=== PATIENT | female | born 1940 | race Caucasian/White ===

== ENCOUNTER → 2020-01-08 14:33 | Outpatient (BNVA) | payer MEDICARE, OTHER, SELFPAY | PROVIDERS: Family Provider Nurse Practitioner Family; PCP Nurse Practitioner Family; Visit Provider Dermatology | DX: Z12.89 Encounter for screening for malignant neoplasm of other sites (principal) | CPT/HCPCS: 71046 ==

== ENCOUNTER 2020-03-10 14:33 | Outpatient (CLI) | payer MEDICARE, OTHER, SELFPAY ==
--- NOTE | 2020-03-10 14:46 | MM_ITS ---
WS: [id number] SCREENING DIGITAL MAMMOGRAM WITH CAD HISTORY: SCREENING COMPARISON: None available. Bilateral CC and MLO views submitted. Computer aided detection analyzed. Breast composition: There are scattered areas of fibroglandular density. Seen on the LEFT MLO project ion is a 6 mm rounded hyperdense nodule posteriorly which may be a lymph node. There is an additional small cluster of calcifications at the 3:00 axis of the LEFT breast at a middle depth. These are sma ll round calcifications and probably benign. Questionable soft tissue mass associated with the calcif ications. Additional benign calcifications. LEFT breast: Spot compression views ( MLO). True ML and exaggerated lateral CC. Ultrasound to follow if abnormality persists. LEFT breast: Magnification views 3:00. MM/[place] [id number] IMPRESSION: BI-RADS: 0-Incomplete: Need additional imaging evaluation FOLLOW UP: Need Additional Imaging
== END 2020-03-10 14:34 | disposition home or self-care (01) ==
LOC: RADSHAW 14:42
PROVIDERS: PCP Nurse Practitioner Family; Visit Provider Nurse Practitioner Family
DX: Z12.31 Encounter for screening mammogram for malignant neoplasm of breast (principal); R92.1 Mammographic calcification found on diagnostic imaging of breast
CPT/HCPCS: 77067

== ENCOUNTER 2020-03-24 10:11 | Outpatient (CLI) | payer MEDICARE, OTHER, SELFPAY ==
--- NOTE | 2020-03-24 10:20 | US_ITS ---
WS: [id number] ADDITIONAL VIEWS LEFT MAMMOGRAM LEFT BREAST ULTRASOUND HISTORY: ABNORMAL MAMMOGRAM LT BREAST COMPARISON: 03/10/2020 LEFT MAMMOGRAM: Spot compression views and true ML. Magnification views LEFT breast. Cluster of calcifications along the 2:00 axis of the LEFT breast at a mid to posterior depth. These a re minimally pleomorphic calcifications. No prior studies for comparison to evaluate for stability. There is an additional well-rounded hyperdense nodule at the 2:00 axis posteriorly which needs furthe r evaluation. LEFT BREAST ULTRASOUND 2-D and color Doppler imaging submitted. Hypoechoic nodule with central increased echogenicity at 2:00, 6 cm from the nipple measures 6 x 5 x 5 mm. Corresponds to the mammographic abnormality and benign in appearance. Stereotactic biopsy LEFT breast recommended of calcifications at 2:00. US/US breast LT limited* [id number] IMPRESSION: BI-RADS: 4B-Suspicious: Intermediate FOLLOW UP: Biopsy Recommended
== END 2020-03-24 10:12 | disposition home or self-care (01) ==
LOC: RADSHAW 10:18
PROVIDERS: PCP Nurse Practitioner Family; Visit Provider Nurse Practitioner Family
DX: R92.8 Other abnormal and inconclusive findings on diagnostic imaging of breast (principal); R92.1 Mammographic calcification found on diagnostic imaging of breast; M35.3 Polymyalgia rheumatica; E03.9 Hypothyroidism, unspecified; E11.9 Type 2 diabetes mellitus without complications
CPT/HCPCS: 76642; 77065; 80053; 82607; 82746; 83036; 83550; 84443; 85025

== ENCOUNTER 2020-04-28 12:31 | Outpatient (CLI) | payer MEDICARE, OTHER, SELFPAY ==
--- NOTE | 2020-04-28 12:43 | MM_ITS ---
WS: [id number] STEREOTACTIC LEFT BREAST BIOPSY WITH VACUUM ASSISTANCE. History: Heterogeneous left breast calcifications. Biopsy recommended for suspicious calcifications. Procedure, risks, and complications were discussed the patient who agreed to proceed. Prior imaging w as reviewed. Cluster of calcifications within the left breast are localized. Stereotactic imaging was performed. P atient was prepped and draped in usual sterile fashion. After 1% lidocaine, calcifications were targe ulysses stereotactically in the left breast. Small incision was made. Needle advanced into the cluster of calcifications left breast with imaging demonstrating appropriate position relative to the calcifica tions. Multiple vacuum-assisted core biopsies were obtained. Postprocedure imaging demonstrates calci fications within the biopsy specimen. The biopsy cavity was lavaged. Titanium clip was placed at the biopsy site. Postprocedure imaging dem onstrates clip in good position. No immediate complications. MM/[place] [id number] IMPRESSION: 1. Uncomplicated vacuum-assisted stereotactic biopsy of calcifications in the left breast. 2. 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 No yulisa gnancy identified. Recommend 6 month diagnostic mammographic follow-up postbiopsy
--- NOTE | 2020-04-28 12:43 | MM_ITS ---
WS: [id number] STEREOTACTIC LEFT BREAST BIOPSY WITH VACUUM ASSISTANCE. History: Heterogeneous left breast calcifications. Biopsy recommended for suspicious calcifications. Procedure, risks, and complications were discussed the patient who agreed to proceed. Prior imaging w as reviewed. Cluster of calcifications within the left breast are localized. Stereotactic imaging was performed. P atient was prepped and draped in usual sterile fashion. After 1% lidocaine, calcifications were targe ulysses stereotactically in the left breast. Small incision was made. Needle advanced into the cluster of calcifications left breast with imaging demonstrating appropriate position relative to the calcifica tions. Multiple vacuum-assisted core biopsies were obtained. Postprocedure imaging demonstrates calci fications within the biopsy specimen. The biopsy cavity was lavaged. Titanium clip was placed at the biopsy site. Postprocedure imaging dem onstrates clip in good position. No immediate complications. MM/MM biopsy LT vac assist [id number] IMPRESSION: 1. Uncomplicated vacuum-assisted stereotactic biopsy of calcifications in the left breast. 2. 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 No yulisa gnancy identified. Recommend 6 month diagnostic mammographic follow-up postbiopsy
--- NOTE | 2020-04-28 12:43 | MM_ITS ---
WS: [id number] STEREOTACTIC LEFT BREAST BIOPSY WITH VACUUM ASSISTANCE. History: Heterogeneous left breast calcifications. Biopsy recommended for suspicious calcifications. Procedure, risks, and complications were discussed the patient who agreed to proceed. Prior imaging w as reviewed. Cluster of calcifications within the left breast are localized. Stereotactic imaging was performed. P atient was prepped and draped in usual sterile fashion. After 1% lidocaine, calcifications were targe ulysses stereotactically in the left breast. Small incision was made. Needle advanced into the cluster of calcifications left breast with imaging demonstrating appropriate position relative to the calcifica tions. Multiple vacuum-assisted core biopsies were obtained. Postprocedure imaging demonstrates calci fications within the biopsy specimen. The biopsy cavity was lavaged. Titanium clip was placed at the biopsy site. Postprocedure imaging dem onstrates clip in good position. No immediate complications. MM/MM surgical specimen LT IMPRESSION: 1. Uncomplicated vacuum-assisted stereotactic biopsy of calcifications in the left breast. 2. 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 No yulisa gnancy identified. Recommend 6 month diagnostic mammographic follow-up postbiopsy
[2020-04-28 14:06] LABS: INR 0.89 (0.8-1.2)
== END 2020-04-28 12:32 | disposition home or self-care (01) ==
LOC: RADSHAW 12:35
PROVIDERS: PCP Nurse Practitioner Family; Visit Provider Nurse Practitioner Family
DX: R92.8 Other abnormal and inconclusive findings on diagnostic imaging of breast (principal); R92.1 Mammographic calcification found on diagnostic imaging of breast; N60.22 Fibroadenosis of left breast; M35.3 Polymyalgia rheumatica
CPT/HCPCS: 19081; 77065; 80053; 81001; 85610; 88305

== ENCOUNTER → 2020-05-12 14:44 | Outpatient (BNVA) | payer MEDICARE, OTHER, SELFPAY | PROVIDERS: PCP Nurse Practitioner Family; Referring Provider Internal Medicine; Visit Provider Podiatrist Foot & Ankle Surgery | DX: M21.961 Unspecified acquired deformity of right lower leg (principal); M21.962 Unspecified acquired deformity of left lower leg; M19.072 Primary osteoarthritis, left ankle and foot; M19.071 Primary osteoarthritis, right ankle and foot; M21.42 Flat foot [pes planus] (acquired), left foot; M21.41 Flat foot [pes planus] (acquired), right foot; M77.32 Calcaneal spur, left foot; M77.31 Calcaneal spur, right foot; M72.2 Plantar fascial fibromatosis | CPT/HCPCS: 73630 ==

== ENCOUNTER 2020-05-23 23:20 | Observation (INO) | payer MEDICARE, OTHER, SELFPAY ==
[2020-05-23 23:21] VITALS: BP 198/108; PULSE 74; RESP 16; TEMP 36.7; O2SAT 95
--- NOTE | 2020-05-23 23:23 | CTR_ITS ---
PROCEDURE INFORMATION: Exam: CT Head Without Contrast Exam date and time: 05/23/2020 11:27 PM Age: 79 years old Clinical indication: Altered mental status/memory loss and speech disturbance; Confusion or disorientation; Patient HX: Dysphasia, confusion; Additional info: CVA TECHNIQUE: Imaging protocol: Computed tomography of the head without contrast. Radiation optimization: All CT scans at this facility use at least one of these dose optimization techniques: automated exposure control; mA and/or kV adjustment per patient size (includes targeted exams where dose is matched to clinical indication); or iterative reconstruction. Other technique: STROKE PROTOCOL was implemented. COMPARISON: No relevant prior studies available. RADIATION DOSE METRICS: Total DLP (mGy-cm): 862.44 FINDINGS: Brain: There is moderate diffuse cerebral atrophy. Patchy areas of hypoattenuation are seen in the deep white matter of the cerebral hemispheres bilaterally compatible with deep white matter microvascular disease. Hypoattenuation seen within the external capsules compatible with chronic lacunar infarctions. Ventricles: No ventriculomegaly. Bones/joints: Unremarkable. No acute fracture. Paranasal sinuses: Minimal mucosal thickening and fluid is seen within the ethmoidal sinuses bilaterally. Mastoid air cells: Visualized mastoid air cells are well aerated. Soft tissues: Unremarkable. CT/CT head wo con* [id number] IMPRESSION: There are no acute intracranial findings. ASSESSMENT: ASPECTS ([place] Stroke Program Early CT Score) is 10. Radiation Dose CTDIVOL = (mGy): DLP = 862.44 (mGy-cm)
--- NOTE | 2020-05-23 23:23 | XRR_ITS ---
PROCEDURE INFORMATION: Exam: XR Chest, 1 View Exam date and time: 05/24/2020 12:01 AM Age: 79 years old Clinical indication: Other: Stroke symptoms; Patient HX: Poss CVA; Confusion, difficulty speaking. TECHNIQUE: Imaging protocol: XR of the chest Views: 1 view. COMPARISON: CR XR chest 2V* [id number] 01/08/2020 2:40 PM FINDINGS: Lungs: Mild platelike atelectasis right infrahilar region. Elevated hemidiaphragm. No focal consolidation. Pleural space: Unremarkable. No pleural effusion. No pneumothorax. Heart/Mediastinum: Unremarkable. No cardiomegaly. Bones/joints: Unremarkable. XR/XR chest 1V portable [id number] IMPRESSION: Mild platelike atelectasis right infrahilar region. Elevated hemidiaphragm. No focal consolidation.
--- NOTE | 2020-05-23 23:24 | ECG_ITS ---
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 Measurements Intervals [place] Rate: 75 P: 20 SC: 175 QRS: 16 QRSD: 94 T: 69 QT: 390 QTc: 436 Interpretive Statements SINUS RHYTHM NONSPECIFIC ST & T-WAVE ABNORMALITY Compared to ECG 12/24/2015 14:52:21 T-wave abnormality now present Left ventricular hypertrophy no longer present Poor R-wave progression no longer present Electronically Signed On 05-24-2020 19:08:27 CDT by Nick Livingston M.D. [email or web address]
[2020-05-23 23:34] VITALS: BP 212/96; PULSE 74; RESP 16; O2SAT 98
--- NOTE | 2020-05-23 23:42 | ED_ITS ---
HPI - Neuro Symptoms/Deficit General: Chief Complaint: Neuro Symptoms/Deficit Stated Complaint: Stroke Symptoms Time Seen by Provider: 05/23/20 23:23 Source: patient and EMS Mode of arrival: EMS Limitations: no limitations History of Present Illness: HPI Narrative: 71-year-old female states tonight at home 930 she started having some confusion and difficult speaking. She state s that she covered out of turn the water off. EMS states when he first arrived here to she had severe dysarthria was unable to read sentences. He states that is since resolved. She states she feels much improved. She is able to speak here without any difficulty. She does seem to get tongue-tied at times with very mild dysarthria every once in a while but no severe dysarthria. She denies any weakness. Denies any headache. Associated symptoms: Deny chest pain, nausea or vomiting Review of Systems Const: Denies: fever(s), chills, body aches or change in appetite Eyes: Denies: blurry vision or eye discomfort ENMT: Denies: throat pain or dental pain Card: Denies: chest pain Resp: Denies: dyspnea GI: Denies: abdominal pain, nausea, vomiting or diarrhea : Denies: dysuria Musc: Denies: neck pain or back pain Skin/Breast: Denies: rash Neuro: Reports: numbness in extremities, Slurred speech present and difficulty communicating thoughts Psych: Denies: depression Dmitry/Lymph: Denies: easy bruising All/Imm: Denies: urticaria PFSH ED PFSH: Medical History Essential (primary) hypertension Surgical History H/O: hysterectomy Social History Smoking and tobacco status: never smoked Alcohol intake: never service: No History of recent travel: No Current gender identity: Female NIH stroke score NIHSS: Level Of Consciousness - 1a: 0 Level Of Consciousness Questions - 1b: Both Correct Level Of Consciousness Commands - 1c: Both Correct Best Gaze - 2: Normal Visual Green - 3: No Visual Loss Facial Palsy - 4: Normal Motor Arm Right - 5: No Drift Motor Arm Left - 5: No Drift Motor Leg Right - 6: No Drift Motor Leg Left - 6: No Drift Limb Ataxia - 7: Absent Sensory - 8: Normal Best Language - 9: No Aphasia Dysarthia - 10: Mild/Moderate Dysarthia Extinction And Inattention - 11: 0 Score: Total Score: 1 Physical Exam Const: COMMON NORMALS: no acute distress, patient oriented x3 and healthy appearing HENMT: COMMON NORMALS: normocephalic and atraumatic HEAD & SCALP: normocephalic and atraumatic Eye: COMMON NORMALS: Equal, round and reactive pupils present and EOMs intact bilaterally PUPIL: Yes Equal, round and reactive pupils present Neck/C-Spine: COMMON NORMALS: full ROM and supple Chest: COMMONS NORMALS: normal inspection of the chest and normal palpation of entire chest wall Resp: COMMON NORMALS: normal respiratory effort, No retractions, No use of accessory muscles and clear to auscultation bilaterally AUSCULTATION: clear to auscultation bilaterally Cardio: COMMON NORMALS: regular rate, regular rhythm and No murmurs present (Cardio) RATE: regular rate RHYTHM: regular rhythm GI: COMMON NORMALS: Normal to inspection, nondistended, normoactive bowel sounds present, Soft to palpation, non-tender and no masses PALPATION: Yes Soft to palpation Extremity: COMMON NORMALS: normal to inspection and full ROM Neuro: COMMON NORMALS: patient oriented x3, moves all extremities and no focal motor deficits OTHER: Very mild dysarthria at times when reading lines. Majority time she is able to speak without any difficulty at all Psych: COMMON NORMALS: mental status grossly normal, Normal thought process present and cooperative THOUGHT PROCESS: Normal thought process present Skin: COMMON NORMALS: no rashes or lesions noted and no wounds GENERAL SKIN EXAM: no rashes or lesions noted Course Vital Signs: Vital signs: Vital Signs Temperature 98.0 F 05/23/20 23:21 Pulse Rate 68 05/24/20 01:00 Respiratory Rate 16 05/24/20 01:00 Blood Pressure 169/87 05/24/20 01:00 Pulse Oximetry 96 05/24/20 01:00 MDM - Neuro Symptoms/Deficit MDM Narrative: Medical decision making narrative: 2344 patient symptoms are resolving. Got an NIH of possibly 1 for some mild dysarthria. Patient is able to read most the sentences fine without any problems. Patient was able to stand and ambulate to bedside commode. I spoke to Dr. Lund due to her low NIH I do not believe she is a TPA candidate along with her improving symptoms. Will get a CTA though. 0100 patient's urine shows an acute. This could be causing her symptoms. CTA showed no clot formation. She is not a TPA candidate. Patient is stable here. Blood pressure here is improved. I spoke to hospitalist will admit for her cystitis and TIA. Lab Data: Labs: Lab Results 05/24/20 05/24/20 05/24/20 Range/Units 00:11 00:11 00:11 WBC 11.6 H (4.0-10.0) 10^3/ uL RBC 4.34 (4.1-5.3) 10^6/u L Hgb 11.5 (11.5-15.3) g/dL Hct 36.2 L (37.0-47.0) % MCV 83.4 (81-99) fL MCH 26.5 L (28.0-34.0) pg MCHC 31.8 (30.0-36.0) g/dL RDW 14.7 (12.1-15.1) % Plt Count 444 H (130-400) 10^3/c mm MPV 9.0 (7.4-10.4) fL Neut % (Auto) 51.6 % Lymph % (Auto) 32.9 % [place] % (Auto) 12.3 % Eos % (Auto) 1.4 % Baso % (Auto) 0.4 % Neut # (Auto) 6.01 (1.8-7.7) 10^3/u L Lymph # (Auto) 3.8 (0.8-4.8) 10^3/u L [place] # (Auto) 1.4 H (0.2-0.9) 10^3/u L Eos # (Auto) 0.2 (0.0-0.8) 10^3/u L Baso # (Auto) 0.1 (0.0-0.1) 10^3/u L Nucleated RBC % (a uto) 0 % Nucleated RBCs # 0.0 /100WBC PT 12.00 L (12.1-14.9) SECO NDS INR 0.86 (0.8-1.2) Sodium 128 L (136-145) mmol/L Potassium 3.7 (3.5-5.1) mmol/L Chloride 91 L (98-107) mmol/L Carbon Dioxide 26 (22-29) mmol/L Anion Gap 14.7 (5-19) BUN 8 (8-23) mg/dL Creatinine 0.6 (0.5-0.9) mg/dL GFR Calculation Not Reportable Glucose 100 (65-115) mg/dL Calculated Osmolal ity 264 L (285-295) mOsm/k g Calcium 9.0 (8.5-10.5) mg/dL Total Bilirubin 0.3 (0.15-1.2) mg/dL AST 22 (0-32) U/L ALT 15 (0-33) U/L Alkaline Phosphata se 34 L (35-105) IU/L Total Protein 6.8 (6.6-8.7) g/dL Albumin 4.0 (3.5-5.2) g/dL Globulin 2.8 (1.3-4.6) g/dL Urine Color (Yellow) Urine Appearance (CLEAR) Urine pH (5-7) Ur Specific Gravit y (1.005-1.030) Urine Protein (Negative) Urine Glucose (UA) (Normal) Urine Ketones (Negative) Urine Blood (Negative) Urine Nitrate (Negative) Urine Bilirubin (Negative) Urine Urobilinogen (Negative) mg/dL Ur Leukocyte July ase (Negative) Urine RBC (0-2) /hpf Urine WBC (0-5) /hpf Ur Squamous Epith Cells (0-5) /hpf Amorphous Sediment Urine Bacteria (NONE) /hpf 05/24/20 Range/Units 00:11 WBC (4.0-10.0) 10^3/ uL RBC (4.1-5.3) 10^6/u L Hgb (11.5-15.3) g/dL Hct (37.0-47.0) % MCV (81-99) fL MCH (28.0-34.0) pg MCHC (30.0-36.0) g/dL RDW (12.1-15.1) % Plt Count (130-400) 10^3/c mm MPV (7.4-10.4) fL Neut % (Auto) % Lymph % (Auto) % [place] % (Auto) % Eos % (Auto) % Baso % (Auto) % Neut # (Auto) (1.8-7.7) 10^3/u L Lymph # (Auto) (0.8-4.8) 10^3/u L [place] # (Auto) (0.2-0.9) 10^3/u L Eos # (Auto) (0.0-0.8) 10^3/u L Baso # (Auto) (0.0-0.1) 10^3/u L Nucleated RBC % (a uto) % Nucleated RBCs # /100WBC PT (12.1-14.9) SECO NDS INR (0.8-1.2) Sodium (136-145) mmol/L Potassium (3.5-5.1) mmol/L Chloride (98-107) mmol/L Carbon Dioxide (22-29) mmol/L Anion Gap (5-19) BUN (8-23) mg/dL Creatinine (0.5-0.9) mg/dL GFR Calculation Glucose (65-115) mg/dL Calculated Osmolal ity (285-295) mOsm/k g Calcium (8.5-10.5) mg/dL Total Bilirubin (0.15-1.2) mg/dL AST (0-32) U/L ALT (0-33) U/L Alkaline Phosphata se (35-105) IU/L Total Protein (6.6-8.7) g/dL Albumin (3.5-5.2) g/dL Globulin (1.3-4.6) g/dL Urine Color Yellow (Yellow) Urine Appearance Clear (CLEAR) Urine pH 7 (5-7) Ur Specific Gravit y 1.010 (1.005-1.030) Urine Protein Neg (Negative) Urine Glucose (UA) Norm (Normal) Urine Ketones Negative (Negative) Urine Blood Neg (Negative) Urine Nitrate Positive H (Negative) Urine Bilirubin Neg (Negative) Urine Urobilinogen Norm (Negative) mg/dL Ur Leukocyte July ase Trace H (Negative) Urine RBC 0-4 H (0-2) /hpf Urine WBC 15-25 H (0-5) /hpf Ur Squamous Epith Cells 0-4 H (0-5) /hpf Amorphous Sediment Not Reportable Urine Bacteria 4+ H (NONE) /hpf Imaging Data^: CXR: Attestation: I personally reviewed and interpreted this imaging study as follows: My impression: No acute abnormality Other CT: Radiologist's impression: [facility] [address] [place] [address] CT Scan Report Signed Patient: Lorena Boyd Unit #: [id number] : 1940 Age/Sex: 79 / F ADM Date: 05/23/20 Loc: ER Room/Bed: Attending Dr: Ordering Provider/Ordering MD: Valeria Noble MD Date of Service: 05/23/20 Procedure(s): CT angio headneck* [id number] Accession Number(s): [id number] Report Number: [id number] PROCEDURE INFORMATION: Exam: CT Angiography Head With Contrast Exam date and time: 05/23/2020 11:56 PM Age: 79 years old Clinical indication: Speech disturbance; Dysarthria and anarthria; Patient HX: Resolving dysphasia and confusion; Additional info: CVA TECHNIQUE: Imaging protocol: Computed tomography angiography of the head with intravenous contrast. 3D rendering (Not supervised by radiologist): MIP and/or 3D reconstructed images were created by the technologist. Radiation optimization: All CT scans at this facility use at least one of these dose optimization techniques: automated exposure control; mA and/or kV adjustment per patient size (includes targeted exams where dose is matched to clinical indication); or iterative reconstruction. Contrast material: VISI 320; Contrast volume: 95 ml; Contrast route: INTRAVENOUS (IV); COMPARISON: CT head wo con* [id number] 05/23/2020 11:18 PM RADIATION DOSE METRICS: Total DLP (mGy-cm): 2.88 FINDINGS: ANTERIOR CIRCULATION: Right internal carotid artery: Unremarkable. Intracranial segment is patent with no significant stenosis. No aneurysm. Right middle cerebral artery: Unremarkable. No occlusion or significant stenosis. No aneurysm. Right anterior cerebral artery: Unremarkable. No occlusion or significant stenosis. No aneurysm. Left internal carotid artery: Unremarkable. Intracranial segment is patent with no significant stenosis. No aneurysm. Left middle cerebral artery: Unremarkable. No occlusion or significant stenosis. No aneurysm. Left anterior cerebral artery: Unremarkable. No occlusion or significant stenosis. No aneurysm. POSTERIOR CIRCULATION: Right vertebral artery: Unremarkable. No occlusion or significant stenosis. No aneurysm. Left vertebral artery: Unremarkable. No occlusion or significant stenosis. No aneurysm. Basilar artery: Unremarkable. No occlusion or significant stenosis. No aneurysm. Right posterior cerebral artery: Unremarkable. No occlusion or significant stenosis. No aneurysm. Left posterior cerebral artery: Unremarkable. No occlusion or significant stenosis. No aneurysm. Brain: No definite mass, mass effect, or midline shift. Cerebral ventricles: Normal. No ventriculomegaly. Bones/joints: Unremarkable. No acute fracture. Soft tissues: Unremarkable. IMPRESSION: No large vessel stenosis or occlusion. PROCEDURE INFORMATION: Exam: CT Angiography Neck With Contrast Exam date and time: 05/23/2020 11:56 PM Age: 79 years old Clinical indication: Speech disturbance; Dysarthria and anarthria; Patient HX: Resolving dysphasia and confusion; Additional info: CVA TECHNIQUE: Imaging protocol: Computed tomography angiography of the neck with intravenous contrast. 3D rendering (Not supervised by radiologist): MIP and/or 3D reconstructed images were created by the technologist. Radiation optimization: All CT scans at this facility use at least one of these dose optimization techniques: automated exposure control; mA and/or kV adjustment per patient size (includes targeted exams where dose is matched to clinical indication); or iterative reconstruction. Contrast material: VISI 320; Contrast volume: 95 ml; Contrast route: INTRAVENOUS (IV); COMPARISON: CT head wo con* [id number] 05/23/2020 11:18 PM RADIATION DOSE METRICS: Total DLP (mGy-cm): 2031.88 FINDINGS: Right common carotid artery: No stenosis. No dissection or occlusion. Right internal carotid artery: There is approximate 50% stenosis within the right carotid bulb secondary to circumferential calcific plaque formation. Right external carotid artery: No occlusion or stenosis of the origin. Right vertebral artery: No stenosis. No dissection or occlusion. Left common carotid artery: No stenosis. No dissection or occlusion. Left internal carotid artery: There is an approximately 55% stenosis within the left carotid bulb secondary to mix calcific and soft plaque formation. Left external carotid artery: No occlusion or stenosis of the origin. Left vertebral artery: No stenosis. No dissection or occlusion. Bones/joints: No acute fracture. Soft tissues: Normal. No significant soft tissue swelling. CT/CT angio headneck* [id number] IMPRESSION: 1. Moderate 50% stenosis within the right carotid bulb secondary to circumferential plaque formation. 2. Moderate 55% stenosis within the left carotid bulb secondary to mixed calcific and soft plaque formation. Mom REFERENCES: NASCET CRITERIA. The degree of internal carotid artery stenosis is based on NASCET criteria. Normal is no stenosis. Mild is less than 50% stenosis. Moderate is 50-69% stenosis. Severe is 70% to 99% stenosis. Total occlusion is no detectable patent lumen. CT Head: Radiologist's impression: [facility] [address] [facility] [address] CT Scan Report Signed Patient: Lorena Boyd Unit #: [id number] : 1940 278 Age/Sex: 79 / F ADM Date: 05/23/20 Loc: ER Room/Bed: Attending Dr: Ordering Provider/Ordering MD: Valeria Noble MD Date of Service: 05/23/20 Procedure(s): CT head wo con* [id number] Accession Number(s): [id number] Report Number: [id number] PROCEDURE INFORMATION: Exam: CT Head Without Contrast Exam date and time: 05/23/2020 11:27 PM Age: 79 years old Clinical indication: Altered mental status/memory loss and speech disturbance; Confusion or disorientation; Patient HX: Dysphasia, confusion; Additional info: CVA TECHNIQUE: Imaging protocol: Computed tomography of the head without contrast. Radiation optimization: All CT scans at this facility use at least one of these dose optimization techniques: automated exposure control; mA and/or kV adjustment per patient size (includes targeted exams where dose is matched to clinical indication); or iterative reconstruction. Other technique: STROKE PROTOCOL was implemented. COMPARISON: No relevant prior studies available. RADIATION DOSE METRICS: Total DLP (mGy-cm): 862.44 FINDINGS: Brain: There is moderate diffuse cerebral atrophy. Patchy areas of hypoattenuation are seen in the deep white matter of the cerebral hemispheres bilaterally compatible with deep white matter microvascular disease. Hypoattenuation seen within the external capsules compatible with chronic lacunar infarctions. Ventricles: No ventriculomegaly. Bones/joints: Unremarkable. No acute fracture. Paranasal sinuses: Minimal mucosal thickening and fluid is seen within the ethmoidal sinuses bilaterally. Mastoid air cells: Visualized mastoid air cells are well aerated. Soft tissues: Unremarkable. CT/CT head wo con* [id number] IMPRESSION: There are no acute intracranial findings. ASSESSMENT: ASPECTS ([place] Stroke Program Early CT Score) is 10. EKG Data^: EKG 1: Attestation: I personally reviewed and interpreted this EKG as follows: EKG interpretation date: 05/23/20 EKG interpretation time: 23:57 Interpretation: nsr hr [address] or t wave abnormalities qrs 94 qtc 419 Discharge Plan Discharge Prescriptions: No Action trazodone 50 mg tablet 50 mg PO .qhs Qty: 90 RF: 3 metoprolol succinate [Toprol XL] 25 mg tablet extended release 24 hr 25 mg PO DAILY Qty: 90 RF: 3 prednisone 20 mg tablet 15 mg PO DAILY Qty: 90 RF: 3 ezetimibe [Zetia] 10 mg tablet 10 mg PO QDAY Qty: 60 RF: 0 Coding Level of Care Code ED Basket Operator for Chg Fwd Exam Comprehensive
[2020-05-24] VITALS (9 sets, daily range): BP systolic 115–198; BP diastolic 69–90; PULSE 63–78; RESP 16–20; TEMP 36.4–37; O2SAT 93–99
[2020-05-24 00:28] LABS: Basophils # 0.1 10^3/uL (0.0-0.1); Basophils % 0.4 %; Eosinophils # 0.2 10^3/uL (0.0-0.8); Eosinophils % 1.4 %; Hematocrit 36.2 % (37.0-47.0); Hemoglobin 11.5 g/dL (11.5-15.3); Lymphocytes # 3.8 10^3/uL (0.8-4.8); Lymphocytes % 32.9 %; Mean Corpuscular HGB Conc 31.8 g/dL (30.0-36.0); Mean Corpuscular Hemoglobin 26.5 pg (28.0-34.0); Mean Corpuscular Volume 83.4 fL (81-99); Monocytes # 1.4 10^3/uL (0.2-0.9); Monocytes % 12.3 %; Neutrophils # 6.01 10^3/uL (1.8-7.7); Neutrophils % 51.6 %; Nucleated Red Blood Cells % 0 %; Platelet Count 444 10^3/cmm (130-400); Red Blood Count 4.34 10^6/uL (4.1-5.3); Red Cell Distribution Width 14.7 % (12.1-15.1); White Blood Count 11.6 10^3/uL (4.0-10.0)
[2020-05-24] MEDS: iodixanol 320 mg/mL 100mL Btl IV (00:28)
[2020-05-24 00:35] LABS: Urine Appearance Clear (CLEAR); Urine Color Yellow (Yellow); pH Urine 7 (5-7)
[2020-05-24 00:36] LABS: Add Urine Microscopic? YES; Bilirubin Urine Neg (Negative); Blood Urine Neg (Negative); Glucose Urine UA Norm (Normal); Ketones Urine Negative (Negative); Leukocyte Esterase Urine Trace (Negative); Nitrate Urine Positive (Negative); Protein Urine Neg (Negative); Urobilinogen Urine Norm (Negative)
[2020-05-24 00:38] LABS: Add Urine Culture? Yes; Bacteria Urine 4+ /hpf; RBC Urine 0-4 /hpf (0-2); Squamous Epithelial Cell Urine 0-4 /hpf (0-5); WBC Urine 15-25 /hpf (0-5)
[2020-05-24 00:44] LABS: Alanine Aminotransferase 15 U/L (0-33); Alkaline Phosphatase 34 IU/L (35-105); Anion Gap 14.7 (5-19); Aspartate Amino Transferase 22 U/L (0-32); Blood Urea Nitrogen 8 mg/dL (8-23); Carbon Dioxide 26 mmol/L (22-29); Chloride 91 mmol/L (98-107); Globulin 2.8 g/dL (1.3-4.6); Glucose 100 mg/dL (65-115); Osmolality Calculated 264 mOsm/kg (285-295); Potassium 3.7 mmol/L (3.5-5.1); Sodium 128 mmol/L (136-145); Total Bilirubin 0.3 mg/dL (0.15-1.2); Total Protein 6.8 g/dL (6.6-8.7)
[2020-05-24 00:47] LABS: INR 0.86 (0.8-1.2)
[2020-05-24] MEDS: cefTRIAXone 1,000 MG in sodium chloride 0.9% (plus) 50 ML 100 MG IV (00:59)
[2020-05-24] MEDS: labetalol 5 mg/mL SDV 20mL 10 MG IVP (01:00)
--- NOTE | 2020-05-24 01:08 | PM.HP ---
Providers/Chief Complaint Primary Care Provider: Kim Gaytan APN Chief Complaint: Stroke Symptoms History of Present Illness Lorena Boyd is a 79 year old female who carries history of polymyalgia rheumatica, rheumatoid arthritis palindromic pattern, essential hypertension, GERD, chronic hyponatremia secondary to poor p.o. intake and hydrochlorothiazide, came in with chief complaint of aphasia. Patient is stating that around 9 PM she went to bathroom and did not know how to operate water faucet at the sink, then she went to laundry room and felt confused while operating her washing machine, her daughter called around 9:30 PM and noticed that her mother's speech was slurred and she seemed confused (word finding difficulty )over the phone. Her daughter came and checked on her, called 911 because of her confusion aphasia and generalized weakness. Her symptoms resolved by the time she was evaluated in the ER, NIH 1, she was not a TPA candidate, CT head unremarkable, patient is endorsing urinary frequency and urgency, abnormal UA reviewed, hyponatremia noted, patient hemodynamically stable. She was given 1 dose of labetalol 10 mg because of her systolic blood pressure in 212mmhgs. She was given 1 dose of ceftriaxone in the ER. 50% stenosis of carotid arteries bilaterally. Dr. Bruce recently started her on steroid for polymyalgia rheumatica at 50 mg, she has decreased her dose to 10 mg for now. Following up with Dr. Paul for foot pain. Denies previous history of stroke, NE, CHF, TIA. Review of Systems Const: Reports: body aches and fatigue; Denies: fever(s) Eyes: Denies: change in vision ENMT: Denies: throat pain Card: Denies: chest pain, dyspnea on exertion or orthopnea Resp: Reports: dyspnea GI: Denies: abdominal pain, nausea or vomiting : Reports: urinary frequency, urinary urgency and dribbling; Denies: flank pain Musc: Denies: neck pain Skin/Breast: Reports: erythema, lesions (Varicose vein) and striae Neuro: Reports: confusion Psych: Reports: anxiety Endo: Denies: polyuria Dmitry/Lymph: Denies: easy bruising All/Imm: Denies: urticaria Medications/Allergies Home Medications Medication Instructions Recorded Confirmed Last Taken Type ezetimibe 10 mg tablet 10 mg PO QDAY #60 tab 10/02/19 05/12/20 Unknown Rx metoprolol succinate 25 mg 25 mg PO DAILY #90 tab 03/24/20 05/12/20 Unknown Rx tablet,extended release 24 hr prednisone 20 mg tablet 15 mg PO DAILY #90 tab 04/14/20 05/12/20 Unknown Rx trazodone 50 mg tablet 50 mg PO .qhs #90 tab 04/14/20 05/12/20 Unknown Rx Allergies Allergy/AdvReac Type Severity Reaction Status Date / Time amantadine Allergy Unknown Verified 05/12/20 14:54 codeine Allergy Unknown Verified 05/12/20 14:54 indomethacin Allergy Unknown Verified 05/12/20 14:54 metronidazole [From Flagyl] Allergy Unknown Verified 05/12/20 14:54 Kwznjrr-[id number]-Vtp Reductase Allergy Unknown Verified 05/12/20 14:54 Inhibitor Sulfa (Sulfonamide Allergy Unknown Verified 05/12/20 14:54 Antibiotics) PFSH Acute PFSH: Medical History Abnormal mammogram Dyslipidemia Essential (primary) hypertension GERD (gastroesophageal reflux disease) PMR (polymyalgia rheumatica) Rheumatoid arthritis Toe malalignment Varicose veins of bilateral lower extremities with pain Surgical History H/O varicose vein stripping H/O: hysterectomy Family History (Updated 05/24/20 @ 01:56 by Michelle Fraser MD) Mother CAD (coronary artery disease) Father Parkinsons Social History (Updated 05/24/20 @ 01:56 by Michelle Farser MD) Smoking and tobacco status: never smoked Alcohol intake: never Lives independently: Yes Housing: House service: No History of recent travel: No Current gender identity: Female Vitals/I&O/Wt Last Vital Signs Temp 98.0 F 05/23/20 23:21 Pulse 68 05/24/20 01:00 Resp 16 05/24/20 01:00 BP 169/87 05/24/20 01:00 Pulse Ox 96 05/24/20 01:00 Physical Exam Narrative: EXAM NARRATIVE: Very pleasant elderly female Clinically looks dehydrated Loss of eyebrows Able to answer my questions appropriately NIH is 0 Good strength of upper and lower extremities Sensations intact, Lower extremity swelling greater than right leg Varicose veins noticed 1+ pitting edema of lower extremity S1, S2 is, heart rate sinus rhythm Abdomen soft distended bowel sound present Lungs are clear to auscultation No carotid bruit noted Left-sided mild facial droop Data : 05/24/20 00:11 05/24/20 00:11 A&P Assessment and plan (1) TIA (transient ischemic attack): Status: Acute (2) Hyponatremia: Status: Acute (3) UTI (urinary tract infection): Status: Acute Additional A&P Information TIA Symptoms currently resolved, she suffered from word finding difficulty, a aphasia and confusion spells ABCD2 score 2 50 to 59% stenosis of carotid arteries bilaterally, no previous history of stroke or NE or TIA I would continue aspirin and Plavix for the next 28 days, have her see Dr. Lund on outpatient settings Physical therapy in the morning Not a candidate of TPA as per Dr. Lund's recommendation considering low NIH score UTI This is most likely the etiology for her confusion I will keep her on ceftriaxone for now Patient is endorsing urinary frequency and urgency Abnormal UA reviewed Awaiting urine cultures Chronic hyponatremia secondary to hydrochlorothiazide and poor p.o. intake I will check serum and urine osmolarity, urine sodium level, keep her on low-dose for normal saline 30 cc/h Depending on next sodium level I will adjust fluid rate, next sodium level at 4 AM Check TSH level, Polymyalgia rheumatica: I would resume her current regimen of prednisone 10 mg for now Glucose 100 mg/dL She is not diabetic Recently Dr. Bruce started steroids for diagnosis of PMR Bilateral lower extremity swelling left greater than right, will obtain venous Doppler of left extremity, Full code Cardiac diet Physical therapy evaluation in the morning Her daughter would like to be notified before discharge. Name Leda Austin [phone] Attestations Medical Necessity Statement*: Anticipating discharge in less than 48 hours continued physical therapy evaluation in the morning, patient lives alone and suffered from TIA, currently on antibiotics for UTI Time Spent in Patient Care: (>than 50% of time spent in counselling and/or direct pt care on unit). 50mins Coding Level of Care Code Acute Residential Air Sealing Technician for g Fwd Diagnoses TIA (transient ischemic attack) G45.9 Hyponatremia E87.1 UTI (urinary tract infection) N39.0
--- NOTE | 2020-05-24 02:01 | USCV_ITS ---
Lorena Boyd Age: 79 Gender: F : 1940 Exam Date: 05/24/2020 06:18 Ordering Phys: Michelle Fraser MD Technologist: Bisi Suh Exam Location[place] [facility] [place] Indication: DVT LEFT LEG HISTORY: DVT. PROCEDURES: Venous duplex imaging was performed in only the left lower extremity. The following venous structures were evaluated: common femoral vein, profunda vein, proximal portion of the greater saphenous vein, superficial femoral vein, and the popliteal vein. In addition, the posterior tibial and peroneal trunk were evaluated. Serial compression, augmentation maneuvers, and spectral Doppler flow evaluation were performed. FINDINGS: Normal 2-D Doppler and augmentation and compressibility throughout the lower extremity venous structures. Additional imaging through the proximal calf veins also reveals no thrombus. Limited evaluation of the greater saphenous vein is patent with no thrombus.. CONCLUSIONS No evidence of left lower extremity DVT. Hakan Nguyen MD (Electronically Signed) Final Date: 24 May 2020 10:33 S
[2020-05-24] MEDS: aspirin 81 mg Chew Tablet 324 MG PO (02:04)
[2020-05-24] MEDS: enoxaparin 40 mg/0.4 mL Syringe SUBCUT (02:30)
[2020-05-24] MEDS: sodium chloride 0.9% 1,000 ML 30 ML IV (02:30)
[2020-05-24 02:43] LABS: Uric Acid 3.5 mg/dL (2.4-5.7)
[2020-05-24] MEDS: trazodone 50 mg Tablet PO ×2 (03:10→20:24)
[2020-05-24 03:15] LABS: Urine Random Sodium 50 mmol/L
[2020-05-24 03:32] LABS: Basophils # 0.1 10^3/uL (0.0-0.1); Basophils % 0.5 %; Eosinophils # 0.1 10^3/uL (0.0-0.8); Eosinophils % 1.3 %; Hematocrit 36.9 % (37.0-47.0); Hemoglobin 11.3 g/dL (11.5-15.3); Lymphocytes # 3.3 10^3/uL (0.8-4.8); Lymphocytes % 30.7 %; Mean Corpuscular HGB Conc 30.6 g/dL (30.0-36.0); Mean Corpuscular Hemoglobin 26.2 pg (28.0-34.0); Mean Corpuscular Volume 85.4 fL (81-99); Mean Platelet Volume 8.9 fL (7.4-10.4); Monocytes # 1.3 10^3/uL (0.2-0.9); Monocytes % 12.1 %; Neutrophils # 5.78 10^3/uL (1.8-7.7); Nucleated Red Blood Cells % 0 %; Platelet Count 343 10^3/cmm (130-400); Red Blood Count 4.32 10^6/uL (4.1-5.3); Red Cell Distribution Width 14.8 % (12.1-15.1); White Blood Count 10.7 10^3/uL (4.0-10.0)
[2020-05-24 04:12] LABS: Blood Urea Nitrogen 7 mg/dL (8-23); Calcium 9.2 mg/dL (8.5-10.5); Carbon Dioxide 26 mmol/L (22-29); Chloride 91 mmol/L (98-107); Glucose 98 mg/dL (65-115); Osmolality Calculated 262 mOsm/kg (285-295); Sodium 127 mmol/L (136-145); Thyroid Stimulating Hormone 1.07 uIU/mL (0.27-4.20)
[2020-05-24 04:16] LABS: Anion Gap 13.3 (5-19); Potassium 3.3 mmol/L (3.5-5.1)
[2020-05-24 08:39] LABS: Sodium 126 mmol/L (136-145)
[2020-05-24] MEDS: clopidogrel 75 mg Tablet PO (09:24)
[2020-05-24] MEDS: aspirin 81 mg EC Tablet PO (09:24)
[2020-05-24] MEDS: ezetimibe 10 mg Tablet PO (09:25)
[2020-05-24] MEDS: metoprolol succinate ER (24 HR) 25 mg Tablet PO (09:25)
[2020-05-24] MEDS: predniSONE 20 mg Tablet 10 MG PO (09:26)
--- NOTE | 2020-05-24 10:56 | PC.CHAP ---
Pastoral Care Encounter/Spiritual Assessment Type of Contact [] Declined professor of biological sciences visit [] Patient/Family/Request visit [] Outpatient visit [] Follow-up visit [] Physician referral [] Code/Alert [] Routine visit [] Staff referral [] Actively dying [] Patient sleeping [] Family support [] [] Out of room [] Palliative care [] [x] Receiving care in room [] Pre-surgical visit [] Trauma [] Long length of stay [] ICU visit [] Other: Relational/Emotional Strength [] Patient feels connected with others/family/visitors/staff [] Distress [] Loneliness/isolation [] Abandonment Spirituality of Patient [] Person of Alexandra [] Attends Druze of their Alexandra [] Believes in Prayer [] Reads Bible or Shinto materials [] There are Spiritual issues to be addressed Power Generation Plant Operator Interventions [] Prayer [] Active listening [] Non-anxious presence [] Spiritual/emotional support [] Crisis/trauma care [] Spiritual counseling [] Bereavement support [] Provided bereavement packet [] Provided Bible/devotional materials [] Provided toy/stuffed animal, coloring book to patient or family member [] Provided Communion [] Anointing/[place] [] Salvation [] Completed spiritual assessment [] Other: Impact on Illness or Injury [] Angry [] Fearful [] Anxious [] Often cries [] Exhaustion [] Unable to work [] Unable to attend scientologist [] Unable to walk/stand [] Unable to read [] Unable to drive [] Unable to eat/drink [] Unable to sleep [] Unable to be with family [] Patient intubated [] Other: Summary Nursing staff entered the room just ahead of the professor of biological sciences. Referred patient for a follow up visit by next professor of biological sciences. Patient visit was attempted by Power Generation Plant Operator Chase Meneses. Time spent with patient 3 minutes
--- NOTE | 2020-05-24 11:11 | USCV_ITS ---
Lorena Boyd Age: 79 Gender: F : 1940 Exam Date: 05/24/2020 13:16 Ordering Phys: Matthew Dey MD Technologist: Vinay Orellana [place]am [place] [facility] [place]: TIA BP: 132 / 82 HR: 66 Rhythm: Sinus Technical Quality: Technically difficult study MEASUREMENTS (Male / Female) Normal Values 2D ECHO LV Diastolic Diameter PLAX 3.0 cm 4.2 - 5.9 / 3.9 - 5.3 cm LV Systolic Diameter PLAX 2.4 cm IVS Diastolic Thickness 1.1 cm 0.6 - 1.0 / 0.6 - 0.9 cm IVS Systolic Thickness 1.3 cm LVPW Diastolic Thickness 1.1 cm 0.6 - 1.0 / 0.6 - 0.9 cm LVPW Systolic Thickness 1.2 cm LVOT Diameter 2.0 cm LV Ejection Fraction 2D Teich 44.2 % LV Ejection Fraction MOD 2C 60.2 % LV Ejection Fraction 2C AL 60.8 % LA Diameter 3.6 cm LA Width 3.8 cm LA Height 4.6 cm RA Width 3.3 cm RA Height 4.1 cm M-MODE LV Diastolic Diameter MM 4.5 cm 4.2 - 5.9 / 3.9 - 5.3 cm LV Systolic Diameter MM 3.0 cm LV Ejection Fraction MM Teich 64.1 % IVS Diastolic Thickness MM 1.1 cm 0.6 - 1.0 / 0.6 - 0.9 cm IVS Systolic Thickness MM 1.6 cm LVPW Diastolic Thickness MM 1.2 cm 0.6 - 1.0 / 0.6 - 0.9 cm LVPW Systolic Thickness MM 1.5 cm RV Diastolic Diameter MM 2.1 cm Aortic Annulus Diameter 3.8 cm LA Ao Ratio MM 1.0 MV E Point Septal Separation 0.4 cm DOPPLER AV Peak Velocity 212.0 cm/s LVOT Peak Velocity 93.0 cm/s AV Area Cont Eq vti 1.5 cm squared AV Area Cont Eq pk 1.4 cm squared MV Area PHT 5.0 cm squared Mitral E to A Ratio 0.9 MV E' Velocity 8.0 cm/s Mitral E to MV E' Ratio 16.0 Mitral E to LV E' Lateral Ratio 15.8 Mitral E to LV E' Septal Ratio 16.2 TR Peak Velocity 266.0 cm/s TR Peak Gradient 28.2 mmHg TV Peak E Velocity 111.0 cm/s Right Atrial Pressure 3.0 mmHg Pulmonary Artery Systolic Pressu 31.3 mmHg PV Peak Velocity 124.0 cm/s FINDINGS Left Ventricle Normal left ventricular size and systolic function, EF 62 %. No regional wall motion abnormalities.Grade I/IV diastolic dysfunction (abnormal relaxation filling pattern), normal to mildly elevated filling pressures. Right Ventricle The right ventricle is normal in size and function. Right Atrium The right atrium is normal in size. Left Atrium Mildly increased left atrial size. Mitral Valve Thickened mitral valve. Moderate mitral annular calcification. Trace mitral valve regurgitation. Aortic Valve Thickened aortic valve. Tricuspid Valve Tricuspid valve not well visualized. Trace tricuspid valve regurgitation. Estimated pulmonary artery peak systolic pressure of 31 mmHg Pulmonic Valve Pulmonic valve not well visualized. Pericardium Normal pericardium without effusion. Aorta Normal ascending aorta dimension. CONCLUSIONS Normal left ventricular size and systolic function, EF 62 %. No regional wall motion abnormalities.Grade I/IV diastolic dysfunction (abnormal relaxation filling pattern), normal to mildly elevated filling pressures. Mildly increased left atrial size. Thickened mitral valve. Moderate mitral annular calcification. Trace mitral valve regurgitation. Thickened aortic valve. Trace tricuspid valve regurgitation. Estimated pulmonary artery There is no pericardial effusion. Compared to the study from 02/20/2019, there may not be a significant change Dr Michelle Conrad MD FACC (Electronically Signed) Final Date: 24 May 2020 16:25 S
[2020-05-24 12:47] LABS: Partial Thromboplastin Time 34.4 SECONDS (23.9-36.7)
--- NOTE | 2020-05-24 18:14 | PM.PN ---
Subjective Subjective: Interval history: Patient is doing well. Has no focal weakness. No sensory loss. Vitals and labs have been reviewed. She has been placed on telemetry, a 2D echo has been ordered. Vitals/I&O/Wt Last Vital Signs Temp 98.2 F 05/24/20 15:06 Pulse 63 05/24/20 15:06 Resp 18 05/24/20 15:06 BP 141/80 05/24/20 15:06 Pulse Ox 93 05/24/20 15:06 05/24/20 05/24/20 05/24/20 06:59 14:59 22:59 Intake Total 720 / 720 Output Total 600 / 600 Balance 120 / 120 Weight last 48 hrs Weight 100.879 kg Physical Exam Narrative: EXAM NARRATIVE: EXAM NARRATIVE: Very pleasant elderly female Clinically looks dehydrated Loss of eyebrows Able to answer my questions appropriately NIH is 0 Good strength of upper and lower extremities Sensations intact, Lower extremity swelling greater than right leg Varicose veins noticed 1+ pitting edema of lower extremity S1, S2 is, heart rate sinus rhythm Abdomen soft distended bowel sound present Lungs are clear to auscultation No carotid bruit noted Data : 05/24/20 02:59 05/24/20 08:15 A&P Assessment and plan (1) TIA (transient ischemic attack): Status: Acute (2) Hyponatremia: Status: Acute (3) UTI (urinary tract infection): Status: Acute Additional A&P Information TIA Symptoms currently resolved, she suffered from word finding difficulty, a aphasia and confusion spells ABCD2 score 2 50 to 59% stenosis of carotid arteries bilaterally, no previous history of stroke or TX or TIA. Not a candidate of TPA as per Dr. Lund's recommendation considering low NIH score continue aspirin and Plavix for the next 28 days, will add atorvastatin 40 mg oral daily. 2D echo:Normal left ventricular size and systolic function, EF 62 %. No regional wall motion abnormalities.Grade I/IV diastolic dysfunction (abnormal relaxation filling pattern), normal t mildly elevated filling pressures. Mildly increased left atrial size. Thickened mitral valve. Moderate mitral annular calcification. Trace mitral valve regurgitation. Thickened aortic valve. Trace tricuspid valve regurgitation. Estimated pulmonary artery.There is no pericardial effusion. Compared to the study from 02/20/2019, there may not be a significant change. Telemetry: follow Dr. Kevon as outpatient. Physical therapy in the morning UTI This is most likely the etiology for her confusion Continue on ceftriaxone for now Patient is endorsing urinary frequency and urgency Abnormal UA reviewed Awaiting urine cultures Chronic hyponatremia secondary to hydrochlorothiazide and poor p.o. intake I will check serum and urine osmolarity, urine sodium level, keep her on low-dose for normal saline 30 cc/h Depending on next sodium level I will adjust fluid rate, next sodium level at 4 AM Check TSH level, Polymyalgia rheumatica: I would resume her current regimen of prednisone 10 mg for now Glucose 100 mg/dL She is not diabetic Recently Dr. Bruce started steroids for diagnosis of PMR Bilateral lower extremity swelling left greater than right, will obtain venous Doppler of left extremity, Full code Cardiac diet Physical therapy evaluation in the morning Her daughter would like to be notified before discharge. Name Leda Austin [phone] Attestations Medical Necessity Statement*: Patient needs to be in hospital for further TIA work-up. Coding Level of Care Code Acute Plastic Molding Operator for Ehsan Rascon Diagnoses TIA (transient ischemic attack) G45.9 Hyponatremia E87.1 UTI (urinary tract infection) N39.0
[2020-05-25] VITALS: BP 115/71; PULSE 60; RESP 18; TEMP 36.9; O2SAT 94
[2020-05-25] MEDS: cefTRIAXone 1,000 MG in sodium chloride 0.9% (plus) 50 ML 100 MG IV (02:03)
[2020-05-25] MEDS: sodium chloride 0.9% 1,000 ML 30 ML IV (03:39)
[2020-05-25] MEDS: enoxaparin 40 mg/0.4 mL Syringe SUBCUT (03:39)
[2020-05-25 04:00] VITALS: BP 143/77; PULSE 68; RESP 18; TEMP 36.8; O2SAT 93
[2020-05-25 07:23] VITALS: BP 120/89; PULSE 73; RESP 16; TEMP 36.3; O2SAT 98
[2020-05-25] MEDS: predniSONE 20 mg Tablet 10 MG PO (08:59)
[2020-05-25] MEDS: clopidogrel 75 mg Tablet PO (08:59)
[2020-05-25] MEDS: aspirin 81 mg EC Tablet PO (08:59)
[2020-05-25] MEDS: metoprolol succinate ER (24 HR) 25 mg Tablet PO (08:59)
--- NOTE | 2020-05-25 09:08 | PC.NURSE ---
Patient complained of pain in back of 4. Patient decided to sit up in chair to relieve back pain. Patient denies cough. Patient requesting coffee. patient provided coffee by narrative writer. Patient has some edema to bilateral lower ext. Patient stated the edema in BLE started bad in the last month. Call light within reach and bedside table within reach.
--- NOTE | 2020-05-25 10:16 | PM.DCS ---
Discharge Providers Date of Admission: 05/24/20 01:16 Date of Discharge: May 25, 2020 Attending Provider at Admission: Michelle Fraser MD Attending Provider at Discharge: Matthew Dey MD Primary Care Provider: Kim Gaytan APN Diagnoses at Discharge Discharge Diagnosis (1) TIA (transient ischemic attack): Status: Resolved (2) Hyponatremia: Status: Resolved (3) UTI (urinary tract infection): Status: Resolved Reason for Visit Reason for Visit: Stroke Symptoms Hospital Course Hospital Course: 9 year old female who carries history of polymyalgia rheumatica, rheumatoid arthritis palindromic pattern, essential hypertension, GERD, chronic hyponatremia secondary to poor p.o. intake and hydrochlorothiazide, came in with chief complaint of aphasia word finding difficulty, and confusion spells. CT head without contrast: Showed no intracranial pathology. Head and neck CTA: 1. Moderate 50% stenosis within the right carotid bulb secondary to circumferential plaque formation. 2. Moderate 55% stenosis within the left carotid bulb secondary to mixed calcific and soft plaque formation.She was diagnosed with TIA. Based on her low NIH score, she was not a TPA candidate. She was kept on aspirin and Plavix, and statin. She was worked up for TIA. Telemetry failed to show any A. fib. 2D echo: Normal left ventricular size and systolic function, EF 62 %. No region l wall motion abnormalities.Grade I/IV diastolic dysfunction (abnormal relaxation filling pattern), normal to mildly elevated filling pressures. Mildly increased left atrial size. Thickened mitral valve. Moderate mitral annular calcification. Trace mitral valve regurgitation. Thickened aortic valve. Trace tricuspid valve regurgitation. Estimated pulmonary artery There is no pericardial effusion. Compared to the study from 02/20/2019, there may not be a significant change. Due to difference in leg swelling, lower extremity Doppler was done: Which failed to show any DVT.She was also managed for UTI, she was discharged on levofloxacin. She had no similar symptoms during the hospital stay. For chronic hyponatremia she was allowed to continue with the p.o. intake. She will follow Dr. Lund as outpatient. She has been discharged on aspirin Plavix and Lipitor. Physical Exam Const: COMMON NORMALS: patient oriented x3 HENMT: COMMON NORMALS: normocephalic, atraumatic, hearing grossly normal bilaterally and external ears normal HEAD & SCALP: normocephalic and atraumatic EXTERNAL EAR: Yes external ears normal Eye: COMMON NORMALS: no scleral icterus GENERAL EYE: appearance normal, both eyes and all related structures Chest: COMMONS NORMALS: normal inspection of the chest and normal palpation of entire chest wall CHEST: Yes Symmetrical chest wall rise Resp: COMMON NORMALS: normal respiratory effort, No retractions, No use of accessory muscles and clear to auscultation bilaterally EFFORT & INSPECTION: Yes symmetric chest movement AUSCULTATION: clear to auscultation bilaterally Cardio: COMMON NORMALS: regular rate, regular rhythm, S1 normal heart sound present, S2 normal heart sound present, No gallops present (Cardio), No murmurs present (Cardio), No rub (Cardio) and Peripheral pulses 2+ throughout RATE: regular rate RHYTHM: regular rhythm HEART SOUNDS: S1 normal heart sound present and S2 normal heart sound present PERIPHERAL PULSES: Peripheral pulses 2+ throughout GI: COMMON NORMALS: Normal to inspection, nondistended, normoactive bowel sounds present, Soft to palpation, non-tender, No hepatosplenomegaly present and no masses AUSCULTATION: Yes normoactive bowel sounds PALPATION: Yes Soft to palpation and Yes No hepatosplenomegaly present RECTAL EXAM: deferred Extremity: COMMON NORMALS: no pedal edema Neuro: COMMON NORMALS: patient oriented x3 Discharge Data Data Completed and Pending: Completed Studies During Hospitalization Category Date Time Status CT angio headneck * [id number] Urge nt Cat Scan 05/23/20 23:[address] head wo con* 7 0450 Urgent Cat Scan 05/23/20 23:23 Completed XR chest 1V elsie ble [id number] Urgent Exams 05/23/20 23:23 Completed CV echo complete* [id number] Stat Ultrasound 05/24/20 11:11 [place] [id number] Routin e Ultrasound 05/24/20 02:01 Completed Pending at discharge Category Date Time Status Urine Culture Sta t Lab 05/24/20 00:11 Results Labs from last 24 hours 05/24/20 05/24/20 05/24/20 12:23 00:11 00:11 APTT 34.4 Serum Osmolality 224 L 263 L Vitals: Last Vital Signs Temp 97.4 F L 05/25/20 07:23 Pulse 73 05/25/20 07:23 Resp 16 05/25/20 07:23 BP 120/89 05/25/20 07:23 Pulse Ox 98 05/25/20 07:23 Discharge Plan Discharge Patient Disposition: Home Condition: Stable Prescriptions: New atorvastatin 40 mg Tablet 40 mg PO BEDTIME 30 Days RF: 0 acetaminophen 325 mg Tablet 650 mg PO Q4H PRN (Reason: Mild Pain Or Increase Temp) 10 Days RF: 0 trazodone 50 mg Tablet 50 mg PO BEDTIME 30 Days RF: 0 prednisone 20 mg Tablet 10 mg PO DAILY 30 Days RF: 0 clopidogrel 75 mg Tablet 75 mg PO DAILY 30 Days RF: 0 aspirin 81 mg Tablet,Delayed Release (Dr/Ec) 81 mg PO DAILY 30 Days RF: 0 levofloxacin 500 mg tablet 500 mg PO DAILY 5 Days RF: 0 Continued metoprolol succinate [Toprol XL] 25 mg tablet extended release 24 hr 25 mg PO DAILY Qty: 90 RF: 3 hydrochlorothiazide 25 mg tablet 25 mg PO DAILY RF: 0 pantoprazole 20 mg tablet,delayed release (DR/EC) 40 mg PO DAILY RF: 0 lorazepam 0.5 mg tablet 0.5 mg PO BID PRN (Reason: Anxiety) RF: 0 Benadryl 25 mg PO PRN RF: 0 Discontinued ezetimibe [Zetia] 10 mg tablet 10 mg PO QDAY Qty: 60 RF: 0 Discharge Orders: Discharge Order (Routine); Ordered 05/25/20 Ordered By: Matthew Dey Referrals: Savanah Lund MD [Physician] - 06/10/20 1:15 pm Michelle Welch MD [Physician] - 06/01/20 10:00 am Discharge Diet: Low Salt Discharge Activity: Resume usual activity Patient Instructions: Trazodone (By mouth), Prednisone (By mouth), Atorvastatin (By mouth), Clopidogrel (By mouth), Stroke Stoplight, TIA Discharge Date/Time: 05/25/20 13:12 Discharge Attestations Time Spent in Discharge Care*: greater than 30 min Specific Discharge Activities: Specific discharge activities: educating patient, educating and/or supporting family/caregiver, discussing with pcp/other providers, discussing with shelter case manager/social workers/dc planners, documenting/other paperwork and evaluating patient/reviewing data Status at Discharge: Cognitive status at discharge: cognitively intact, Behavioral status at discharge: cooperative, Functional status at discharge: independent ambulation Overall status at discharge: patient is back to baseline Quality Metrics Clinical Quality Measures During this hospital stay, did patient experience: None Coding Level of Care Code Acute Printed Circuit Layout Taper for Chg Fwd Diagnoses TIA (transient ischemic attack) G45.9 Hyponatremia E87.1 UTI (urinary tract infection) N39.0
[2020-05-25 10:32] VITALS: BP 120/89; PULSE 73; RESP 16; TEMP 36.3; O2SAT 98
[2020-05-25] MEDS: acetaminophen 325 mg Tablet 650 MG PO (10:40)
[2020-05-25 11:16] VITALS: BP 137/63; PULSE 64; RESP 14; TEMP 36.8; O2SAT 94
[2020-05-25 13:12] VITALS: BP 137/63; PULSE 64; RESP 14; TEMP 36.8; O2SAT 94
--- NOTE | 2020-05-25 13:12 | PC.NURSE ---
patient taken to private vehicle via wheelchair.
== END 2020-05-25 13:12 | disposition home or self-care (01) ==
LOC: ER 23:35 → MEDSURG 05-24 01:23
PROVIDERS: Emergency Medicine; Admitting Provider Internal Medicine; PCP Nurse Practitioner Family; Visit Provider Internal Medicine
DX: G45.9 Transient cerebral ischemic attack, unspecified (principal); N39.0 Urinary tract infection, site not specified; E87.1 Hypo-osmolality and hyponatremia; I10 Essential (primary) hypertension; E78.5 Hyperlipidemia, unspecified; Z88.2 Allergy status to sulfonamides; Z79.52 Long term (current) use of systemic steroids; M35.3 Polymyalgia rheumatica; R22.33 Localized swelling, mass and lump, upper limb, bilateral
CPT/HCPCS: 12345; 36415; 70450; 70496; 70498; 71045; 80048; 80053; 81001; 83930; 84295; 84300; 84443; 84550; 85025; 85610; 85730; 87077; 87086; 87184; 93005; 93306; 93971; 96360; 96361; 96365; 96372; 96375; 97110; 97116; 97161; 99284; 99285; G0378; J0696; J1650; J3490; J7030; J7512; Q9967

== ENCOUNTER 2020-09-04 11:55 | Inpatient (IN) | payer MEDICARE, BC, SELFPAY ==
[2020-09-04] VITALS (8 sets, daily range): BP systolic 130–180; BP diastolic 58–89; PULSE 51–86; RESP 17–19; TEMP 36.6–36.8; O2SAT 96–100; BMI 31.6
--- NOTE | 2020-09-04 13:09 | W.ED.WEAKNES ---
HPI - Weakness General: Chief complaint: Weakness Stated complaint: WEAKNESS, NO APPETITE, DEHYDRATED Time Seen by Provider: 09/04/20 13:06 History of Present Illness: HPI Narrative: 79-year-old female presents with generalized weakness nausea. Said fever for the last couple days she was tested for Covid today and was told she was negative. She has been on Levaquin for a cystitis. She states she was changed off of the Levaquin but she is not sure what she might have been switched to. She is extremely anxious she took a Xanax this morning but it was only half of 1/4 mg tablet that was almost 5 hours ago. She describes some restless leg type syndrome symptoms. In addition to that she had bumped her leg and had some bruising it sounds like she had ruptured a varicose vein. She is extremely tender calves as well. She had a subjective fever at home for a brief time when this began she had some loose stools but that is mostly resolved. Complaint: generalized weakness Onset (ago): day(s) Duration: constant Location: generalized Relieving factors: none Exacerbating factors: none Associated symptoms: Denies chest pain, chills, confusion, melena, decreased appetite, diaphoresis, dysuria, easy bruising, fever(s), headache(s), myalgias, nausea, rash, short of breath, syncope or vomiting Review of Systems Const: Denies: fever(s) or diaphoresis ENMT: Denies: throat pain, ear or mastoid pain, nasal discharge or nasal congestion Card: Denies: chest pain or syncope Resp: Denies: dyspnea, productive cough or non-productive cough GI: Denies: vomiting or melena : Denies: dysuria Skin/Breast: Denies: rash or pruritus Neuro: Denies: headache(s) or confusion Dmitry/Lymph: Denies: easy bruising PFSH ED PFSH: Medical History Abnormal mammogram Dyslipidemia Essential (primary) hypertension GERD (gastroesophageal reflux disease) Hyponatremia PMR (polymyalgia rheumatica) Rheumatoid arthritis TIA (transient ischemic attack) TIA (transient ischemic attack) Toe malalignment UTI (urinary tract infection) Varicose veins of bilateral lower extremities with pain Surgical History H/O varicose vein stripping H/O: hysterectomy Family History Mother CAD (coronary artery disease) Father Parkinsons Social History Smoking and tobacco status: never smoked Alcohol intake: never Lives independently: Yes Housing: House service: No History of recent travel: No Current gender identity: Female Physical Exam Const: COMMON NORMALS: average body habitus, patient oriented x3 and alert GENERAL APPEARANCE: cooperative, comfortable, well kempt and well developed NUTRITIONAL APPEARANCE: obese ORIENTATION/CONSCIOUSNESS: Yes awake, Yes oriented to person and Yes oriented to place HENMT: COMMON NORMALS: normocephalic, atraumatic and EAC's normal HEAD & SCALP: normocephalic and atraumatic EXTERNAL AUDITORY CANAL: EAC's normal Neck/C-Spine: COMMON NORMALS: no meningeal signs Resp: COMMON NORMALS: normal respiratory effort, No retractions, No use of accessory muscles and clear to auscultation bilaterally AUSCULTATION: clear to auscultation bilaterally Cardio: COMMON NORMALS: regular rate and regular rhythm RATE: regular rate RHYTHM: regular rhythm HEART SOUNDS: no murmurs GI: COMMON NORMALS: Normal to inspection, nondistended, normoactive bowel sounds present, Soft to palpation and No hepatosplenomegaly present PALPATION: Yes Soft to palpation and Yes No hepatosplenomegaly present : COMMON NORMALS: Yes no CVA tenderness BLADDER/KIDNEY EXAM: Yes no CVA tenderness Back/Pelvis: COMMON NORMALS: no CVA tenderness LUMBAR SPINE/LOWER BACK: Yes normal to inspection Extremity: COMMON NORMALS: no clubbing, cyanosis or edema and no pedal edema Neuro: COMMON NORMALS: patient oriented x3 SENSORIUM/ORIENTATION: Yes alert, Yes oriented to person and Yes oriented to place MENINGEAL SIGNS: Yes no meningeal signs Psych: APPEARANCE: Yes well kempt Skin: COMMON NORMALS: no rashes or lesions noted and turgor normal GENERAL SKIN EXAM: no rashes or lesions noted and turgor normal Course Vital Signs: Vital signs: Vital Signs Temperature 97.8 F 09/06/20 07:33 Pulse Rate 70 09/06/20 07:33 Respiratory Rate 16 09/06/20 07:33 Blood Pressure 123/80 09/06/20 07:33 Pulse Oximetry 92 09/06/20 07:33 MDM - Weakness MDM Narrative: Medical decision making narrative: Hypokalemia and anemia. Reviewed findings with the hospitalist will go ahead and admit for hyponatremia and generalized weakness. Orders have been written Lab Data: Labs: Lab Results 09/04/20 09/04/20 09/04/20 Range/Units 13:50 14:30 14:30 WBC 16.0 H (4.0-10.0) 10^3/ uL RBC 3.30 L (4.1-5.3) 10^6/u L Hgb 7.9 L (11.5-15.3) g/dL Hct 25.0 L (37.0-47.0) % MCV 75.8 L (81-99) fL MCH 23.9 L (28.0-34.0) pg MCHC 31.6 (30.0-36.0) g/dL RDW 16.6 H (12.1-15.1) % Plt Count 534 H (130-400) 10^3/c mm MPV 8.4 (7.4-10.4) fL Neut % (Auto) 82.4 % Lymph % (Auto) 8.5 % Atlantic % (Auto) 6.8 % Eos % (Auto) 0.1 % Baso % (Auto) 0.3 % Neut # (Auto) 13.15 H (1.8-7.7) 10^3/u L Lymph # (Auto) 1.4 (0.8-4.8) 10^3/u L Atlantic # (Auto) 1.1 H (0.2-0.9) 10^3/u L Eos # (Auto) 0.0 (0.0-0.8) 10^3/u L Baso # (Auto) 0.0 (0.0-0.1) 10^3/u L Nucleated RBC % (a uto) 0 % Nucleated RBCs # 0.0 /100WBC Sodium 120 L (136-145) mmol/L Potassium 2.4 L* (3.5-5.1) mmol/L Chloride 76 L (98-107) mmol/L Carbon Dioxide 35 H (22-29) mmol/L Anion Gap 11.4 (5-19) BUN 5 L (8-23) mg/dL Creatinine 0.6 (0.5-0.9) mg/dL GFR Calculation Not Reportable Glucose 134 H (65-115) mg/dL Calculated Osmolal ity 249 L (285-295) mOsm/k g Calcium 9.9 (8.5-10.5) mg/dL Total Bilirubin 0.4 (0.15-1.2) mg/dL AST 19 (0-32) U/L ALT 13 (0-33) U/L Alkaline Phosphata se 45 (35-105) IU/L Creatine Kinase 61 (26-192) U/L Total Protein 6.3 L (6.6-8.7) g/dL Albumin 3.6 (3.5-5.2) g/dL Globulin 2.7 (1.3-4.6) g/dL Urine Color Straw (Yellow) Urine Appearance Clear (CLEAR) Urine pH 7 (5-7) Ur Specific Gravit y 1.005 (1.005-1.030) Urine Protein Neg (Negative) Urine Glucose (UA) Norm (Normal) Urine Ketones Negative (Negative) Urine Blood Neg (Negative) Urine Nitrate Negative (Negative) Urine Bilirubin Neg (Negative) Urine Urobilinogen Norm (Negative) mg/dL Ur Leukocyte July ase Negative (Negative) SARS-CoV-2 RNA (RT -PCR) (NOT DETECTED) 09/04/20 Range/Units 14:45 WBC (4.0-10.0) 10^3/ uL RBC (4.1-5.3) 10^6/u L Hgb (11.5-15.3) g/dL Hct (37.0-47.0) % MCV (81-99) fL MCH (28.0-34.0) pg MCHC (30.0-36.0) g/dL RDW (12.1-15.1) % Plt Count (130-400) 10^3/c mm MPV (7.4-10.4) fL Neut % (Auto) % Lymph % (Auto) % Atlantic % (Auto) % Eos % (Auto) % Baso % (Auto) % Neut # (Auto) (1.8-7.7) 10^3/u L Lymph # (Auto) (0.8-4.8) 10^3/u L Atlantic # (Auto) (0.2-0.9) 10^3/u L Eos # (Auto) (0.0-0.8) 10^3/u L Baso # (Auto) (0.0-0.1) 10^3/u L Nucleated RBC % (a uto) % Nucleated RBCs # /100WBC Sodium (136-145) mmol/L Potassium (3.5-5.1) mmol/L Chloride (98-107) mmol/L Carbon Dioxide (22-29) mmol/L Anion Gap (5-19) BUN (8-23) mg/dL Creatinine (0.5-0.9) mg/dL GFR Calculation Glucose (65-115) mg/dL Calculated Osmolal ity (285-295) mOsm/k g Calcium (8.5-10.5) mg/dL Total Bilirubin (0.15-1.2) mg/dL AST (0-32) U/L ALT (0-33) U/L Alkaline Phosphata se (35-105) IU/L Creatine Kinase (26-192) U/L Total Protein (6.6-8.7) g/dL Albumin (3.5-5.2) g/dL Globulin (1.3-4.6) g/dL Urine Color (Yellow) Urine Appearance (CLEAR) Urine pH (5-7) Ur Specific Gravit y (1.005-1.030) Urine Protein (Negative) Urine Glucose (UA) (Normal) Urine Ketones (Negative) Urine Blood (Negative) Urine Nitrate (Negative) Urine Bilirubin (Negative) Urine Urobilinogen (Negative) mg/dL Ur Leukocyte July ase (Negative) SARS-CoV-2 RNA (RT -PCR) Not detected (NOT DETECTED) Discharge Plan Discharge Patient Disposition: Placed in Observation Admit Provider: Jasmin Ac Clinical Impression: Chronic hyponatremia, Hypokalemia, Anemia, Generalized weakness Coding Level of Care Code ED Graduation Coach for Chg Fwd Exam Comprehensive
[2020-09-04 14:12] LABS: Add Urine Microscopic? NO
[2020-09-04 14:28] LABS: Bilirubin Urine Neg (Negative); Blood Urine Neg (Negative); Glucose Urine UA Norm (Normal); Ketones Urine Negative (Negative); Leukocyte Esterase Urine Negative (Negative); Nitrate Urine Negative (Negative); Protein Urine Neg (Negative); Specific Gravity, Urine 1.005 (1.005-1.030); Urine Appearance Clear (CLEAR); Urine Color Straw (Yellow); Urobilinogen Urine Norm (Negative); pH Urine 7 (5-7)
--- NOTE | 2020-09-04 14:33 | USR_ITS ---
PROCEDURE INFORMATION: Exam: US Duplex Lower Extremity Veins, Bilateral Exam date and time: 09/04/2020 3:06 PM Age: 79 years old Clinical indication: Pain; Leg, upper and leg, lower; Bilateral; Additional info: Bilateral positive homans TECHNIQUE: Imaging protocol: Real-time duplex ultrasound of the extremities with 2-D weldon scale, color Doppler flow and spectral waveform analysis with image documentation. Complete exam focused on the bilateral lower extremity veins. COMPARISON: No relevant prior studies available. FINDINGS: Right deep veins: Unremarkable. The common femoral, femoral, proximal profunda femoral and popliteal veins and greater saphenous junction are patent without thrombus. Normal Doppler waveforms. Normal compressibility and/or augmentation response. Left deep veins: Unremarkable. The common femoral, femoral, proximal profunda femoral and popliteal veins and greater saphenous junction are patent without thrombus. Normal Doppler waveforms. Normal compressibility and/or augmentation response. Superficial veins: Multiple small varices are seen bilaterally in the groin bilaterally, bilateral knees in the left ankle. A superficial vein thrombosis is present in the right groin region. Soft tissues: Mild superficial for the edema is seen in bilateral lower extremities US/[place] [id number] IMPRESSION: 1. No DVT is seen in either lower extremity 2. Small bilateral superficial varices (see above). Thrombosis of a superficial varix is present in right groin region. Mild bilateral lower extremity edema is appreciated.
[2020-09-04 14:43] LABS: Basophils % 0.3 %; Eosinophils % 0.1 %; Hemoglobin 7.9 g/dL (11.5-15.3); Lymphocytes # 1.4 10^3/uL (0.8-4.8); Lymphocytes % 8.5 %; Mean Corpuscular HGB Conc 31.6 g/dL (30.0-36.0); Mean Corpuscular Hemoglobin 23.9 pg (28.0-34.0); Mean Corpuscular Volume 75.8 fL (81-99); Mean Platelet Volume 8.4 fL (7.4-10.4); Monocytes # 1.1 10^3/uL (0.2-0.9); Monocytes % 6.8 %; Neutrophils # 13.15 10^3/uL (1.8-7.7); Neutrophils % 82.4 %; Nucleated Red Blood Cells % 0 %; Platelet Count 534 10^3/cmm (130-400); Red Cell Distribution Width 16.6 % (12.1-15.1)
--- NOTE | 2020-09-04 14:57 | XRR_ITS ---
PROCEDURE INFORMATION: Exam: XR Chest, 1 View Exam date and time: 09/04/2020 4:06 PM Age: 79 years old Clinical indication: Cough and dyspnea; Additional info: Dyspnea/cough, weakness TECHNIQUE: Imaging protocol: XR of the chest Views: 1 view. COMPARISON: CR XR chest 1V portable [id number] 05/23/2020 11:50 PM FINDINGS: Lungs: No airspace consolidation identified. Mild bibasilar atelectasis, decreased from prior study. Pulmonary vasculature within normal limits. Pleural space: No visible pneumothorax or pleural effusion. Heart/Mediastinum: Cardiomediastinal silhouette contour is within normal limits. Bones/joints: No emergent findings identified. XR/XR chest 1V portable [id number] IMPRESSION: 1. No radiographic findings of acute cardiopulmonary disease.
[2020-09-04 15:01] LABS: Alanine Aminotransferase 13 U/L (0-33); Albumin Level 3.6 g/dL (3.5-5.2); Alkaline Phosphatase 45 IU/L (35-105); Anion Gap 11.4 (5-19); Aspartate Amino Transferase 19 U/L (0-32); Blood Urea Nitrogen 5 mg/dL (8-23); Calcium 9.9 mg/dL (8.5-10.5); Carbon Dioxide 35 mmol/L (22-29); Chloride 76 mmol/L (98-107); Creatine Phosphokinase 61 U/L (26-192); Globulin 2.7 g/dL (1.3-4.6); Glucose 134 mg/dL (65-115); Osmolality Calculated 249 mOsm/kg (285-295); Sodium 120 mmol/L (136-145); Total Bilirubin 0.4 mg/dL (0.15-1.2); Total Protein 6.3 g/dL (6.6-8.7)
[2020-09-04 15:13] LABS: Potassium 2.4 mmol/L (3.5-5.1)
[2020-09-04] MEDS: LORazepam 2 mg/mL INJ 1 mL 0.5 MG IVP (15:40)
[2020-09-04] MEDS: lidocaine 1% 5 ML in potassium chloride premix 100 ML 25 ML IV ×3 (15:46→21:51)
--- NOTE | 2020-09-04 16:16 | ECG_ITS ---
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 Measurements Intervals [place] Rate: 65 P: 54 AK: 213 QRS: -13 QRSD: 110 T: 13 QT: 438 QTc: 459 Interpretive Statements SINUS RHYTHM WITH FIRST DEGREE AV BLOCK WITH OCCASIONAL SUPRAVENTRICULAR PREMATURE COMPLEXES LOW QRS VOLTAGE IN PRECORDIAL LEADS [QRS DEFLECTION < 1.0 mV IN CHEST LEADS] LEFT VENTRICULAR HYPERTROPHY AND ST-T CHANGE [VOLTAGE CRITERIA PLUS ST/T ABNORMALITY] Compared to ECG 05/23/2020 23:57:02 First degree AV block now present Low QRS voltage now present Left ventricular hypertrophy now present ST (T wave) deviation now present T-wave abnormality no longer present Electronically Signed On 09-04-2020 17:51:20 DESIZING MACHINE OPERATOR by Nick Livingston M.D. [id number] [email or web address]
--- NOTE | 2020-09-04 17:52 | PM.HP ---
Providers/Chief Complaint Admitting Physician: Jasmin Ac MD Primary Care Provider: Kim Gaytan APN Chief Complaint: WEAKNESS, NO APPETITE, DEHYDRATED History of Present Illness Lorena Boyd is a 79 year old female with a past medical history of polymyalgia rheumatica for which she follows with back end engineer in [place] for several years, currently only on prednisone 10 mg p.o. daily, hypertension, GERD, chronic hyponatremia likely secondary to hydrochlorothiazide who presented to the hospital with chief complaints of generalized weakness. Patient states that she was started on Lasix for lower extremity swelling around 3 to 4 weeks ago by her primary care provider. She does not know what was the cause of the lower extremity swelling. Since starting Lasix patient has started to feel increasingly weak and felt dehydrated. Because of this she reduced her Lasix from daily dosing to 3 times a week dosing however this did not appear to have helped with her weakness. Over the past 2 weeks she reports a weight loss of around 7 to 8 pounds, poor appetite, nausea, increased bloating and muscle weakness which has kept her in bed for the most part. She reports no orthopnea or paroxysmal nocturnal dyspnea. Denies any complains of chest pain. Does report some shortness of breath with exertion over the past 2 to 3 months. Echocardiogram was performed in May 2020 when she had presented with symptoms of CVA, at the time she was noted to have LVEF of 62% without any regional wall motion abnormalities and grade 104 diastolic dysfunction with normal to mildly elevated filling pressures. No significant change was found compared to the study of February 2019. Venous Duplay in May 2020 did not show any evidence of DVT. She does have a history of varicose veins with a history of stripping. She visited with Dr. Welch in the office in June 2020 for complaints of precordial chest pain which at that time appeared to be related to gastritis and she had a trial of Protonix, however she states this has not changed her symptoms very much. Today she is noted to have a hemoglobin of 7.9, has not noticed any melena, had colonoscopy several years ago which showed some incidental polyps. 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 No past history of malignancy. Had a suspicious breast nodule 3 to 4 months ago which on biopsy returned to be benign per patient history. She has been on treatment with Levaquin over the past week for cystitis. Reports she had a temperature of 99.5, possibly higher at home. Review of system as noted above positive for subjective fever, excessive belching, abdominal bloating. Diagnostics in the ER are notable for chronic hyponatremia with sodium of 120, potassium 2.4, leukocytosis of 16. Review of Systems General: Reports: 10 or more systems reviewed and unremarkable except in HPI and below Const: Reports: fever(s), chills and body aches Eyes: Denies: change in vision, blurry vision or photophobia ENMT: Reports: hoarseness; Denies: throat pain, enlarged tonsils, odynophagia or nasal congestion Card: Denies: chest pain, palpitations, irregular heart rhythm, edema, swelling of feet/ankles, lightheadedness, pre-syncope, dyspnea on exertion or orthopnea Resp: Denies: dyspnea, productive cough, non-productive cough, wheezing, stridor, pain on inspiration, change in phlegm color, hemoptysis or chest congestion GI: Denies: abdominal pain, nausea, vomiting, hematemesis, coffee ground emesis, dysphagia, heartburn, diarrhea, constipation, GI cramping, change in stool character, hematochezia or melena : Denies: flank pain, difficulty voiding, dysuria, urinary frequency, urinary urgency, urinary hesitancy or hematuria Musc: Denies: neck pain, back pain, extremity pain, joint swelling, joint warmth or deformity Neuro: Denies: headache(s), numbness in extremities, weakness in extremities, sensory changes, difficulty walking, frequent falls, dizziness, vertigo, behavioral changes, Slurred speech present or seizure-like activity Psych: Denies: anxiety, depression, suicidal ideation or homicidal ideation Endo: Denies: polyuria, polydipsia, tired all the time, cold intolerance or hot flashes Dmitry/Lymph: Denies: easy bruising or easy bleeding Medications/Allergies Home Medications Medication Instructions Recorded Confirmed Last Taken Type hydrochlorothiazide 25 mg PO QA 05/24/20 09/04/20 09/04/20 History pantoprazole 40 mg tablet,delayed 40 mg PO BID #60 tab 06/03/20 09/04/20 09/04/20 Rx release Toprol XL 25 mg PO QA 09/04/20 09/04/20 09/04/20 History acetaminophen [Tylenol Extra 1,000 mg PO PRN 09/04/20 09/04/20 Unknown History Strength] alprazolam [Xanax] See Rx Instructions .ROUTE .COMPLEX 09/04/20 09/04/20 09/04/20 09:30 History see pharmacy comment amlodipine 5 mg PO BEDTIME 09/04/20 09/04/20 09/03/20 History aspirin [Aspir-81] See Rx Instructions .ROUTE .COMPLEX 09/04/20 09/04/20 Unknown History atorvastatin 40 mg PO BEDTIME 09/04/20 09/04/20 Unknown History bumetanide See Rx Instructions .ROUTE .COMPLEX 09/04/20 09/04/20 09/03/20 History 1/2 tab-see phar com clopidogrel 75 mg PO QAM 09/04/20 09/04/20 09/02/20 History clotrimazole 10 mg PO QID PRN 09/04/20 09/04/20 Unknown History ibuprofen [Advil] 400 mg PO PRN 09/04/20 09/04/20 Unknown History levofloxacin [Levaquin] 500 mg PO QAM 09/04/20 09/04/20 09/04/20 History started on wed magnesium oxide 400 mg PO QAM PRN 09/04/20 09/04/20 Unknown History potassium chloride See Rx Instructions .ROUTE .COMPLEX 09/04/20 09/04/20 Unknown History prednisone 10 mg PO QAM 09/04/20 09/04/20 09/04/20 History sennosides-docusate sodium [Senna 3 tab PO BEDTIME 09/04/20 09/04/20 09/03/20 History Plus] tramadol [Ultram] 50 mg PO Q4H PRN 09/04/20 09/04/20 09/03/20 History see pharmacy comment trazodone 50 mg PO BEDTIME 09/04/20 09/04/20 Unknown History Allergies Allergy/AdvReac Type Severity Reaction Status Date / Time Sulfa (Sulfonamide Allergy Severe facial Verified 09/04/20 15:48 Antibiotics) swelling amantadine Allergy doesn't Verified 09/04/20 15:48 remember - thinks it shut her kidney's down indomethacin Allergy mental Verified 09/04/20 15:48 anxiety and hallucinations metronidazole [From Flagyl] Allergy vomiting Verified 08/11/20 13:42 Aapkpbm-Tjx-Dov Reductase AdvReac muscle Verified 09/04/20 15:48 Inhibitor aches PFSH Acute PFSH: Medical History Abnormal mammogram Dyslipidemia Essential (primary) hypertension GERD (gastroesophageal reflux disease) Hyponatremia PMR (polymyalgia rheumatica) Rheumatoid arthritis TIA (transient ischemic attack) TIA (transient ischemic attack) Toe malalignment UTI (urinary tract infection) Varicose veins of bilateral lower extremities with pain Surgical History H/O varicose vein stripping H/O: hysterectomy Family History Mother CAD (coronary artery disease) Father Parkinsons Social History Smoking and tobacco status: never smoked Alcohol intake: never Lives independently: Yes Housing: House service: No History of recent travel: No Current gender identity: Female Vitals/I&O/Wt Last Vital Signs Temp 97.8 F 09/04/20 12:01 Pulse 78 09/04/20 17:30 Resp 18 09/04/20 17:30 BP 158/78 09/04/20 17:30 Pulse Ox 100 09/04/20 17:30 Weight last 48 hrs Weight 94.347 kg Physical Exam Const: COMMON NORMALS: no acute distress, average body habitus, patient oriented x3, no limitations, healthy appearing, alert and well nourished HENMT: COMMON NORMALS: normocephalic and atraumatic HEAD & SCALP: normocephalic and atraumatic Eye: COMMON NORMALS: Equal, round and reactive pupils present, EOMs intact bilaterally, conjunctivae normal and no scleral icterus CONJUNCTIVA: Yes conjunctivae normal PUPIL: Yes Equal, round and reactive pupils present Neck/C-Spine: COMMON NORMALS: no JVD Resp: COMMON NORMALS: normal respiratory effort, No retractions, No use of accessory muscles, clear to auscultation bilaterally and percussion normal AUSCULTATION: clear to auscultation bilaterally PERCUSSION: percussion normal Cardio: COMMON NORMALS: no JVD, regular rate, regular rhythm, S1 normal heart sound present, S2 normal heart sound present, No gallops present (Cardio), No clicks present (Cardio), No murmurs present (Cardio), No rub (Cardio) and Peripheral pulses 2+ throughout RATE: regular rate RHYTHM: regular rhythm HEART SOUNDS: S1 normal heart sound present and S2 normal heart sound present PERIPHERAL PULSES: Peripheral pulses 2+ throughout GI: COMMON NORMALS: Normal to inspection, nondistended, normoactive bowel sounds present, Soft to palpation, non-tender, No hepatosplenomegaly present, no masses and no bruits PALPATION: Yes Soft to palpation and Yes No hepatosplenomegaly present Extremity: COMMON NORMALS: normal to inspection, full ROM, capillary refill normal, no joint enlargement, no clubbing, cyanosis or edema, no calf tenderness and no pedal edema Neuro: COMMON NORMALS: patient oriented x3, CN's II-XII intact bilaterally, moves all extremities, no focal motor deficits, no sensory deficits noted, deep tendon reflexes 2+ bilaterally and gait normal SENSORIUM/ORIENTATION: Yes alert Psych: COMMON NORMALS: mental status grossly normal, Normal thought process present, cooperative, normal affect, speech normal, activity/motor behavior normal, denies hallucinations, denies homicidal ideation and denies suicidal ideation SPEECH: Yes normal speech THOUGHT PROCESS: Normal thought process present Skin: COMMON NORMALS: no rashes or lesions noted, no wounds, turgor normal, no jaundice, no petechiae and no mottling GENERAL SKIN EXAM: no rashes or lesions noted and turgor normal Data : 09/05/20 06:20 09/05/20 06:20 A&P Assessment and plan (1) Chronic hyponatremia: Sodium currently at recent baseline of 120, review of medication shows patient is still on hydrochlorothiazide which could be contributing to the hyponatremia, we will go ahead and stop this. Status: Acute (2) Generalized weakness: May be related to hypokalemia with a critical number of 2.4, supplement 100 mEq of IV potassium, encourage p.o. intake Patient symptoms of abdominal bloating and generalized weakness may be related to hypokalemia, will monitor for response with her bleeding. Hypokalemia may be related to recent Lasix use, will discontinue Lasix and hydrochlorothiazide today Status: Acute (3) Hypokalemia: Related to diuretic use Status: Acute (4) Anemia: Hemoglobin of 7.9, this is new for the patient, past have been 11.3 Check fecal occult blood Recently started on aspirin and Plavix, of which we will hold the aspirin and continue Plavix for now Has also been additionally reporting heartburn, may have duodenal or gastric ulcers as a result of dual antiplatelet therapy with potential bleeding. Additionally stop ibuprofen p.o. prednisone 10 mg at her home dose for now chek iron panel, retic count, b12 and folate levels, TSH Status: Acute (5) Hyperlipidemia: Status: Acute Qualifiers: Hyperlipidemia type: other hyperlipidemia Qualified Code(s): E78.49 - Other hyperlipidemia (6) Leukocytosis: likely secondary to dehydration Status: Acute Attestations Medical Necessity Statement*: dehydration,hypokalemia, needs IVF resuscitation, new anemia, evalute for GI bleed Coding Level of Care Code Acute Lithographer Apprentice for g Fwd Diagnoses Chronic hyponatremia E87.1 Generalized weakness R53.1 Hypokalemia E87.6 Anemia D64.9 Hyperlipidemia E78.49 Hyperlipidemia type: other hyperlipidemia Leukocytosis D72.829
[2020-09-04] MEDS: enoxaparin 40 mg/0.4 mL Syringe SUBCUT (18:47)
[2020-09-04] MEDS: pantoprazole DR 40 mg Tablet PO (18:48)
[2020-09-04] MEDS: sodium chloride 0.9% 1,000 ML 100 ML IV (18:49)
[2020-09-04] MEDS: ALPRAZolam 0.25 mg Tablet PO (18:58)
[2020-09-04] MEDS: TRAMadol 50 mg Tablet PO (18:58)
[2020-09-04] MEDS: amlodipine 5 mg Tablet PO (21:49)
[2020-09-04] MEDS: atorvastatin 40 mg Tablet PO (21:49)
[2020-09-04] MEDS: trazodone 50 mg Tablet PO (21:49)
[2020-09-05] VITALS (8 sets, daily range): BP systolic 100–137; BP diastolic 59–80; PULSE 62–79; RESP 17–20; TEMP 36.4–37.2; O2SAT 92–97
[2020-09-05] MEDS: sodium chloride 0.9% 1,000 ML 100 ML IV ×2 (05:18→16:05)
[2020-09-05] MEDS: predniSONE 10 mg Tablet PO (05:19)
[2020-09-05] MEDS: metoprolol succinate ER (24 HR) 25 mg Tablet PO (05:19)
[2020-09-05] MEDS: clopidogrel 75 mg Tablet PO (05:19)
--- NOTE | 2020-09-05 06:43 | NUR.SHIFT ---
Patient stated that she felt much better and was able to transition to the commode with standby assist, which the patient stated that she couldn't do that before. Patient didn't slept much through the night.
[2020-09-05 06:46] LABS: Basophils # 0.1 10^3/uL (0.0-0.1); Basophils % 0.4 %; Eosinophils # 0.1 10^3/uL (0.0-0.8); Hematocrit 25.5 % (37.0-47.0); Hemoglobin 7.9 g/dL (11.5-15.3); Lymphocytes % 24.5 %; Mean Corpuscular Hemoglobin 23.9 pg (28.0-34.0); Mean Platelet Volume 8.4 fL (7.4-10.4); Monocytes # 1.4 10^3/uL (0.2-0.9); Monocytes % 11.6 %; Neutrophils # 7.38 10^3/uL (1.8-7.7); Neutrophils % 60.1 %; Nucleated Red Blood Cells % 0 %; Platelet Count 525 10^3/cmm (130-400); Red Blood Count 3.31 10^6/uL (4.1-5.3); Red Cell Distribution Width 16.7 % (12.1-15.1); White Blood Count 12.3 10^3/uL (4.0-10.0)
[2020-09-05 07:18] LABS: Procalcitonin 0.05 ng/mL (0-0.5); Thyroid Stimulating Hormone 2.22 uIU/mL (0.27-4.20)
[2020-09-05 07:29] LABS: Alanine Aminotransferase 12 U/L (0-33); Albumin Level 3.2 g/dL (3.5-5.2); Alkaline Phosphatase 42 IU/L (35-105); Anion Gap 9.7 (5-19); Aspartate Amino Transferase 17 U/L (0-32); Blood Urea Nitrogen 4 mg/dL (8-23); Calcium 9.2 mg/dL (8.5-10.5); Carbon Dioxide 33 mmol/L (22-29); Chloride 86 mmol/L (98-107); Globulin 2.4 g/dL (1.3-4.6); Glucose 95 mg/dL (65-115); Osmolality Calculated 259 mOsm/kg (285-295); Sodium 126 mmol/L (136-145); Total Bilirubin 0.5 mg/dL (0.15-1.2); Total Protein 5.6 g/dL (6.6-8.7)
[2020-09-05 07:38] LABS: Potassium 2.7 mmol/L (3.5-5.1)
[2020-09-05 08:01] LABS: Iron 19 ug/dL (37-145)
[2020-09-05 08:14] LABS: Vitamin B12 304 pg/mL (232-1245)
[2020-09-05 08:49] LABS: Folate Level 8.4 ng/mL (4.8-37.3)
[2020-09-05 09:00] LABS: Cortisol Random 3.04 ug/mL (2.47-19.5)
[2020-09-05] MEDS: pantoprazole DR 40 mg Tablet PO ×2 (09:47→16:07)
[2020-09-05] MEDS: sodium chloride 1 gm Tablet PO (09:47)
[2020-09-05] MEDS: FUROsemide 40 mg Tablet PO (09:47)
[2020-09-05 15:32] LABS: Quest SARS-CoV-2 RNA NOT DETECTED (NOT DETECTED)
[2020-09-05] MEDS: lidocaine 1% 5 ML in potassium chloride premix 100 ML 25 ML IV ×2 (16:02→20:18)
[2020-09-05] MEDS: enoxaparin 40 mg/0.4 mL Syringe SUBCUT (16:07)
--- NOTE | 2020-09-05 17:03 | XRR_ITS ---
PROCEDURE INFORMATION: Exam: XR Abdomen, 1 View Exam date and time: 09/06/2020 1:26 AM Age: 79 years old Clinical indication: Condition or disease; Other: Ileus TECHNIQUE: Imaging protocol: XR of the abdomen. Views: Frontal supine view of the abdomen. 1 View. COMPARISON: CT abdomen pelvis con [id number] 12/31/2017 6:20 PM FINDINGS: Gastrointestinal tract: bowel gas pattern is nonspecific. Air filled large bowel including distal rectal gas. Scattered loops of air filled small bowel none of which are dilated. Large amount of stool throughout the large bowel. Intraperitoneal space: Limited exam as left lateral abdomen and upper abdomen not included in the field-of- view. Bones/joints: Unremarkable. XR/XR abdomen 1V* [id number] IMPRESSION: 1. Bowel gas pattern is nonspecific. Air filled large bowel including distal rectal gas. Scattered loops of air filled small bowel none of which are dilated. 2. Large amount of stool throughout the large bowel. 3. Limited exam as left lateral abdomen and upper abdomen not included in the field-of- view.
--- NOTE | 2020-09-05 17:12 | PM.PN ---
Subjective Subjective: Interval history: continues to c/o generalized weaknes, though somehwat improved since yesetrday, K continues ot be crtical at 10/10 today Medications: Reviewed: Yes Vitals/I&O/Wt Last Vital Signs Temp 98.1 F 09/05/20 16:00 Pulse 79 09/05/20 16:00 Resp 18 09/05/20 16:00 BP 127/75 09/05/20 16:00 Pulse Ox 97 09/05/20 16:00 09/05/20 09/05/20 09/05/20 06:59 14:59 22:59 Intake Total 1540 / 1721.25 240 / 240 1000 / 1240 Output Total 850 / 1150 1000 / 1000 Balance 690 / 571.25 240 / 240 0 / 240 Weight last 48 hrs Weight 94.347 kg Physical Exam Narrative: EXAM NARRATIVE: GEN: Awake, alert and oriented, no acute distress CVS: S1S2 N RS: CTA B/L Abd: Soft, nt/nd , bs+ CARRIAGE RIDER: no focal neuro deficits ext: no pitting edema Data : 09/05/20 06:20 09/05/20 06:20 A&P Assessment and plan (1) Chronic hyponatremia: Sodium improved to 126 today. continue IVF hydration with NS Status: Acute (2) Generalized weakness: May be related to hypokalemia, persisting today, supplement Iv and change fluids to NS with added K Patient symptoms of abdominal bloating and generalized weakness may be related to hypokalemia, will monitor for response check AXR for possible ileus related to hypokalemia, states being constipated and passing very little gas. Pt/OT eval CPK to evalute for statin myopathy Status: Acute (3) Hypokalemia: Related to diuretic use, now stopped lasix Status: Acute (4) Anemia: Hemoglobin of 7.9, this is new for the patient, past have been 11.3 Check fecal occult blood, not sent due to lack of BM Recently started on aspirin and Plavix, of which we will hold the aspirin and continue Plavix for now Has also been additionally reporting heartburn, may have duodenal or gastric ulcers as a result of dual antiplatelet therapy with potential bleeding. Additionally stop ibuprofen p.o. prednisone 10 mg at her home dose for now has c/o atypical chest pain on and off for few months, thought to have heartburn on recent cardiology visit, protonix increased, however without significant improvement. check troponin baseline. EKG without acute ST-T wave changes. low iron cunt, Tibc and frritin N/A, normal b12, folate and retic counts Status: Acute (5) Hyperlipidemia: check CPK to r/o statin induced myopathy as cause of weakness, has a listed allergy but currently ion stains Status: Acute Qualifiers: Hyperlipidemia type: other hyperlipidemia Qualified Code(s): E78.49 - Other hyperlipidemia (6) Leukocytosis: likely secondary to dehydration , improving, no signs or symptoms of infection, monitor off abx procal negative Status: Acute Attestations Medical Necessity Statement*: hypokalemia,dehydartion, needs IVF,evaluation for new anemia Coding Level of Care Code Acute Clinical Quality Assurance Associate for Chg Fwd Diagnoses Chronic hyponatremia E87.1 Generalized weakness R53.1 Hypokalemia E87.6 Anemia D64.9 Hyperlipidemia E78.49 Hyperlipidemia type: other hyperlipidemia Leukocytosis D72.829
[2020-09-05] MEDS: sennosides-docusate Tablet 1 TAB PO (17:53)
[2020-09-05] MEDS: acetaminophen 325 mg Tablet 650 MG PO (17:56)
[2020-09-05] MEDS: sodium chlor 0.9% + KCl 40 mEq 40 MEQ/1,000 ML BAG 75 MEQ IV (18:14)
[2020-09-05 18:15] LABS: Ferritin 25 ng/mL (15-150)
[2020-09-05] MEDS: ALPRAZolam 0.25 mg Tablet PO (18:36)
[2020-09-05] MEDS: atorvastatin 40 mg Tablet PO (20:22)
[2020-09-05] MEDS: trazodone 50 mg Tablet PO (20:23)
[2020-09-06 03:40] VITALS: BP 121/70; PULSE 67; RESP 18; TEMP 36.7; O2SAT 92
[2020-09-06 05:39] LABS: Basophils # 0.1 10^3/uL (0.0-0.1); Basophils % 0.5 %; Eosinophils # 0.2 10^3/uL (0.0-0.8); Hematocrit 25.9 % (37.0-47.0); Hemoglobin 7.7 g/dL (11.5-15.3); Lymphocytes # 3.2 10^3/uL (0.8-4.8); Mean Corpuscular HGB Conc 29.7 g/dL (30.0-36.0); Mean Corpuscular Hemoglobin 23.8 pg (28.0-34.0); Mean Corpuscular Volume 79.9 fL (81-99); Mean Platelet Volume 8.4 fL (7.4-10.4); Monocytes # 1.1 10^3/uL (0.2-0.9); Monocytes % 10.4 %; Neutrophils # 6.09 10^3/uL (1.8-7.7); Neutrophils % 55.7 %; Nucleated Red Blood Cells % 0 %; Platelet Count 498 10^3/cmm (130-400); Red Blood Count 3.24 10^6/uL (4.1-5.3); White Blood Count 10.9 10^3/uL (4.0-10.0)
[2020-09-06] MEDS: metoprolol succinate ER (24 HR) 25 mg Tablet PO (05:55)
[2020-09-06] MEDS: predniSONE 10 mg Tablet PO (05:55)
[2020-09-06] MEDS: clopidogrel 75 mg Tablet PO (05:55)
[2020-09-06 06:10] LABS: Alanine Aminotransferase 12 U/L (0-33); Albumin Level 3.1 g/dL (3.5-5.2); Alkaline Phosphatase 39 IU/L (35-105); Aspartate Amino Transferase 17 U/L (0-32); Blood Urea Nitrogen 7 mg/dL (8-23); Carbon Dioxide 30 mmol/L (22-29); Chloride 95 mmol/L (98-107); Creatine Phosphokinase 45 U/L (26-192); Glucose 90 mg/dL (65-115); Osmolality Calculated 272 mOsm/kg (285-295); Sodium 132 mmol/L (136-145); Total Bilirubin 0.3 mg/dL (0.15-1.2); Total Protein 5.1 g/dL (6.6-8.7)
[2020-09-06 06:12] LABS: Troponin T (5th) Once 30 ng/L (0-10)
[2020-09-06 06:23] LABS: Anion Gap 10.6 (5-19)
[2020-09-06 06:24] LABS: Potassium 3.6 mmol/L (3.5-5.1)
[2020-09-06 06:41] LABS: Iron 18 ug/dL (37-145); Percent Saturation 5.6 % (20-50); Total Iron Binding Capacity 318 mcg/dl; Unsaturated Iron Binding 300 ug/dL (112-347)
[2020-09-06] MEDS: sodium chlor 0.9% + KCl 40 mEq 40 MEQ/1,000 ML BAG 75 MEQ IV (06:42)
[2020-09-06 07:33] VITALS: BP 123/80; PULSE 70; RESP 16; TEMP 36.6; O2SAT 92
[2020-09-06] MEDS: polyethylene glycol 3350 Pkt 17 gm PO (08:38)
[2020-09-06] MEDS: sennosides-docusate Tablet 1 TAB PO (08:38)
[2020-09-06] MEDS: pantoprazole DR 40 mg Tablet PO ×2 (08:38→17:42)
[2020-09-06 12:00] VITALS: BP 111/70; PULSE 73; RESP 17; TEMP 36.8; O2SAT 98
[2020-09-06 12:41] LABS: Potassium, Radom Urine 26 mmol/L; Urine Creatinine 35 mg/dL (28-217); Urine Random Chloride 81 mmol/L; Urine Random Sodium 94 mmol/L
[2020-09-06] MEDS: acetaminophen 325 mg Tablet 650 MG PO (14:03)
[2020-09-06] MEDS: ALPRAZolam 0.25 mg Tablet PO (14:03)
[2020-09-06 16:00] VITALS: BP 156/77; PULSE 81; RESP 18; TEMP 36.7; O2SAT 96
--- NOTE | 2020-09-06 17:58 | PM.PN ---
Subjective Subjective: Interval history: anxious today, tearful about recent ilness and progressie weakness, hb 7.7, FOBT positive, diarrhe aftre being given laxatives Medications: Reviewed: Yes Vitals/I&O/Wt Last Vital Signs Temp 98.3 F 09/06/20 12:00 Pulse 73 09/06/20 12:00 Resp 17 09/06/20 12:00 BP 111/70 09/06/20 12:00 Pulse Ox 98 09/06/20 12:00 09/06/20 09/06/20 09/06/20 06:59 14:59 22:59 Intake Total 1175 / 3120 Output Total 400 / 2800 1150 / 1150 Balance 775 / 320 -1150 / -1150 Physical Exam Narrative: EXAM NARRATIVE: GEN: Awake, alert and oriented, no acute distress CVS: S1S2 N RS: CTA B/L Abd: Soft, nt/nd , bs+ PURE CULTURE OPERATOR: no focal neuro deficits Data : 09/06/20 05:13 09/06/20 05:13 Micro: Microbiology 09/06/20 05:25 Occult Blood (FIT) - Final Stool A&P Assessment and plan (1) Chronic hyponatremia: D/c IVF, na at 132 today d/c HCTZ Status: Acute (2) Generalized weakness: May be related to hypokalemia with a critical number of 2.4 upon admission vs anemia with Hb 7.9 with GI blood loss CK WNL, less likely statin myopathy Status: Acute (3) Hypokalemia: Related to diuretic use, improved with iv supplementation and stopping lasix Status: Acute (4) Anemia: Hemoglobin of 7.9, this is new for the patient, past have been 11.3 FOBT+ Recently started on aspirin and Plavix, Hold both fro now, received plavix on 09/05 and 09/06, previously was on hold by daughter for 3 days Has also been additionally reporting heartburn, may have duodenal or gastric ulcers as a result of dual antiplatelet therapy with potential bleeding. Additionally stop ibuprofen p.o. prednisone 10 mg at her home dose for now Surgery consult for possible EGD given 7 pound weight loss, FOBT+, anemia on DAPT and altered bowel habits iron low, normal TIBC , normal b12 folate and tsh Status: Acute (5) Hyperlipidemia: continue statin Status: Acute Qualifiers: Hyperlipidemia type: other hyperlipidemia Qualified Code(s): E78.49 - Other hyperlipidemia (6) Leukocytosis: likely secondary to dehydration Status: Acute (7) Hypertension: stop amlodipine in case contributing to Le edema, change to lisinopril with moniroing of renal function Status: Acute Attestations Medical Necessity Statement*: suregry consult for possible EGD given +FOBT and symptomatic anemia Coding Level of Care Code Acute Histotechnologist Supervisor for Chg Fwd Diagnoses Chronic hyponatremia E87.1 Generalized weakness R53.1 Hypokalemia E87.6 Anemia D64.9 Hyperlipidemia E78.49 Hyperlipidemia type: other hyperlipidemia Leukocytosis D72.829 Hypertension I10
[2020-09-06] MEDS: trazodone 50 mg Tablet PO (20:54)
[2020-09-06] MEDS: atorvastatin 40 mg Tablet PO (20:54)
[2020-09-06 22:35] VITALS: BP 119/69; PULSE 73; RESP 18; TEMP 36.8; O2SAT 96
[2020-09-07] VITALS (7 sets, daily range): BP systolic 107–157; BP diastolic 67–84; PULSE 71–82; RESP 15–18; TEMP 36.3–36.8; O2SAT 95–100
[2020-09-07] MEDS: ALPRAZolam 0.25 mg Tablet PO ×2 (01:11→16:05)
[2020-09-07 05:30] LABS: Basophils # 0.1 10^3/uL (0.0-0.1); Basophils % 0.7 %; Eosinophils # 0.4 10^3/uL (0.0-0.8); Eosinophils % 2.8 %; Hematocrit 25.2 % (37.0-47.0); Hemoglobin 7.6 g/dL (11.5-15.3); Lymphocytes # 3.6 10^3/uL (0.8-4.8); Lymphocytes % 29.3 %; Mean Corpuscular HGB Conc 30.2 g/dL (30.0-36.0); Mean Corpuscular Hemoglobin 24.3 pg (28.0-34.0); Mean Corpuscular Volume 80.5 fL (81-99); Mean Platelet Volume 8.5 fL (7.4-10.4); Monocytes # 1.3 10^3/uL (0.2-0.9); Monocytes % 10.6 %; Neutrophils # 6.77 10^3/uL (1.8-7.7); Neutrophils % 54.4 %; Nucleated Red Blood Cells % 0 %; Platelet Count 512 10^3/cmm (130-400); Red Blood Count 3.13 10^6/uL (4.1-5.3); Red Cell Distribution Width 17.1 % (12.1-15.1); White Blood Count 12.4 10^3/uL (4.0-10.0)
[2020-09-07 06:01] LABS: Alanine Aminotransferase 10 U/L (0-33); Albumin Level 3.1 g/dL (3.5-5.2); Alkaline Phosphatase 36 IU/L (35-105); Anion Gap 12.4 (5-19); Aspartate Amino Transferase 17 U/L (0-32); Blood Urea Nitrogen 5 mg/dL (8-23); Carbon Dioxide 27 mmol/L (22-29); Chloride 96 mmol/L (98-107); Globulin 2.2 g/dL (1.3-4.6); Glucose 87 mg/dL (65-115); Osmolality Calculated 271 mOsm/kg (285-295); Potassium 3.4 mmol/L (3.5-5.1); Sodium 132 mmol/L (136-145); Total Bilirubin 0.3 mg/dL (0.15-1.2); Total Protein 5.3 g/dL (6.6-8.7)
[2020-09-07] MEDS: metoprolol succinate ER (24 HR) 25 mg Tablet PO (06:29)
[2020-09-07] MEDS: predniSONE 10 mg Tablet PO (06:29)
[2020-09-07] MEDS: pantoprazole DR 40 mg Tablet PO ×2 (08:51→17:51)
[2020-09-07] MEDS: lisinopril 5 mg Tablet PO (08:51)
[2020-09-07] MEDS: sennosides-docusate Tablet 1 TAB PO ×2 (08:51→17:51)
[2020-09-07] MEDS: polyethylene glycol 3350 Pkt 17 gm PO (08:52)
[2020-09-07] MEDS: acetaminophen 325 mg Tablet 650 MG PO ×2 (09:01→16:05)
[2020-09-07] MEDS: magnesium citrate Btl 296 mL PO ×2 (13:06→20:02)
[2020-09-07] MEDS: bisacodyl 5 mg Tablet 40 MG PO (13:06)
[2020-09-07] MEDS: TRAMadol 50 mg Tablet PO (14:14)
--- NOTE | 2020-09-07 14:39 | P.PN_ITS ---
Documented by User: LISBET Gamble STDNT 09/07/20 14:51 Subjective Subjective: Interval history: Ms. Boyd is a 79 yo female with h/o HTN, TIA, anemia, chronic hyponatremia, and hyperlipidemia presented with anemia on 09-04-20. Today she feels nauseous and like she needs to burp. Medications: Reviewed: Yes Vitals/I&O/Wt Last Vital Signs Temp 97.3 F L 09/07/20 11:47 Pulse 75 09/07/20 11:47 Resp 15 09/07/20 11:47 BP 107/71 09/07/20 11:47 Pulse Ox 95 09/07/20 11:47 09/06/20 09/07/20 09/07/20 22:59 06:59 14:59 Intake Total 240 / 240 300 / 300 Output Total 1600 / 2750 650 / 650 Balance 240 / -910 -1600 / -2510 -350 / -350 Physical Exam Narrative: EXAM NARRATIVE: GEN: Awake, alert and oriented, no acute distress CVS: S1S2 N RS: CTA B/L Abd: Soft, nt/nd , bs+ FIRE MANAGEMENT SPECIALIST: no focal neuro deficits Const: COMMON NORMALS: no acute distress, average body habitus, patient oriented x3, no limitations, healthy appearing, alert and well nourished GENERAL APPEARANCE: cooperative, comfortable, well kempt and well developed NUTRITIONAL APPEARANCE: obese ORIENTATION/CONSCIOUSNESS: Yes awake, Yes oriented to person and Yes oriented to place HENMT: COMMON NORMALS: normocephalic, atraumatic and EAC's normal HEAD & SCALP: normocephalic and atraumatic EXTERNAL AUDITORY CANAL: EAC's normal Eye: COMMON NORMALS: Equal, round and reactive pupils present, EOMs intact bilaterally, conjunctivae normal and no scleral icterus CONJUNCTIVA: Yes conjunctivae normal PUPIL: Yes Equal, round and reactive pupils present Neck/C-Spine: COMMON NORMALS: no meningeal signs and no JVD Resp: COMMON NORMALS: normal respiratory effort, No retractions, No use of accessory muscles, clear to auscultation bilaterally and percussion normal AUSCULTATION: clear to auscultation bilaterally PERCUSSION: percussion normal Cardio: COMMON NORMALS: no JVD, regular rate, regular rhythm, S1 normal heart sound present, S2 normal heart sound present, No gallops present (Cardio), No clicks present (Cardio), No murmurs present (Cardio), No rub (Cardio) and Peripheral pulses 2+ throughout RATE: regular rate RHYTHM: regular rhythm HEART SOUNDS: S1 normal heart sound present, S2 normal heart sound present and no murmurs PERIPHERAL PULSES: Peripheral pulses 2+ throughout GI: COMMON NORMALS: Normal to inspection, nondistended, normoactive bowel sounds present, Soft to palpation, non-tender, No hepatosplenomegaly present, no masses and no bruits PALPATION: Yes Soft to palpation and Yes No hepatosplenomegaly present : COMMON NORMALS: Yes no CVA tenderness BLADDER/KIDNEY EXAM: Yes no CVA tenderness Back/Pelvis: COMMON NORMALS: no CVA tenderness LUMBAR SPINE/LOWER BACK: Yes normal to inspection Extremity: COMMON NORMALS: normal to inspection, full ROM, capillary refill normal, no joint enlargement, no clubbing, cyanosis or edema, no calf tenderness and no pedal edema Neuro: COMMON NORMALS: patient oriented x3, CN's II-XII intact bilaterally, moves all extremities, no focal motor deficits, no sensory deficits noted, deep tendon reflexes 2+ bilaterally and gait normal SENSORIUM/ORIENTATION: Yes alert, Yes oriented to person and Yes oriented to place MENINGEAL SIGNS: Yes no meningeal signs Psych: COMMON NORMALS: mental status grossly normal, Normal thought process present, cooperative, normal affect, speech normal, activity/motor behavior normal, denies hallucinations, denies homicidal ideation and denies suicidal ideation APPEARANCE: Yes well kempt SPEECH: Yes normal speech THOUGHT PROCESS: Normal thought process present Skin: COMMON NORMALS: no rashes or lesions noted, no wounds, turgor normal, no jaundice, no petechiae and no mottling GENERAL SKIN EXAM: no rashes or lesions noted and turgor normal Data : 09/07/20 05:14 09/07/20 05:14 Micro: Microbiology 09/06/20 05:25 Occult Blood (FIT) - Final Stool A&P Assessment and plan (1) Chronic hyponatremia: D/c IVF, na at 132 today d/c HCTZ Status: Acute (2) Generalized weakness: May be related to hypokalemia with a critical number of 2.4 upon admission vs anemia with Hb 7.9 with GI blood loss CK WNL, less likely statin myopathy. Today Hb 7.6 and potassium 3.4 Status: Acute (3) Hypokalemia: Related to diuretic use, improved with iv supplementation and stopping lasix Status: Acute (4) Anemia: Today Hb is 7.6, hemoglobin of 7.9 09-06-19, this is new for the patient, past has been 11.3. Increased WBCs of 12.4 FOBT+ Recently started on aspirin and Plavix, Hold both fro now, received plavix on 09/05 and 09/06, previously was on hold by daughter for 3 days Has also been additionally reporting heartburn, may have duodenal or gastric ulcers as a result of dual antiplatelet therapy with potential bleeding. Additionally stop ibuprofen p.o. prednisone 10 mg at her home dose for now Surgery consult for possible EGD given 7 pound weight loss, FOBT+, anemia on DAPT and altered bowel habits iron low, normal TIBC , normal b12 folate and tsh Status: Acute (5) Hyperlipidemia: continue statin Status: Acute Qualifiers: Hyperlipidemia type: other hyperlipidemia Qualified Code(s): E78.49 - Other hyperlipidemia (6) Leukocytosis: likely secondary to dehydration Status: Acute (7) Hypertension: stop amlodipine in case contributing to LE edema, change to lisinopril with monitoring of renal function Status: Acute Attestations Medical Necessity Statement*: Waiting for surgery consult for EGD and anemia Coding Level of Care Code Acute Board Of Education Secretary for Chg Fwd Exam Comprehensive Diagnoses Chronic hyponatremia E87.1 Generalized weakness R53.1 Hypokalemia E87.6 Anemia D64.9 Hyperlipidemia E78.49 Hyperlipidemia type: other hyperlipidemia Leukocytosis D72.829 Hypertension I10 Documented by User: Jasmin Ac MD 09/07/20 17:52 Data : 09/07/20 05:14 09/07/20 05:14 A&P Additional A&P Information Agree with medical student assessment and plan as above. Plan for possible endoscopic assessment tomorrow with surgery. Hemoglobin stable at 7.6, hemodynamically stable. Potassium repleted Coding Level of Care Code Acute [employer] Education Secretary for Chg Fwd Exam Comprehensive Diagnoses Chronic hyponatremia E87.1 Generalized weakness R53.1 Hypokalemia E87.6 Anemia D64.9 Hyperlipidemia E78.49 Hyperlipidemia type: other hyperlipidemia Leukocytosis D72.829 Hypertension I10
[2020-09-07] MEDS: lidocaine 1% 5 ML in potassium chloride premix 100 ML 25 ML IV (15:53)
--- NOTE | 2020-09-07 19:04 | PM.CONSULT ---
Providers/Reason For Consult Consulting Physican/Specialty*: Dr. Ac Reason for Consult*: Anemia Attending Physician: Jasmin Ac MD Primary Care Provider: Kim Gaytan APN History of Present Illness History of Present Illness Lorena Boyd is a 79 year old female who has been admitted to the hospital with complaints of weakness lower extremity swelling and dehydration. Patient presently denies any abdominal pain, nausea, vomiting, bleeding per rectum, hematemesis or melena. She states that she has had colonoscopies over the years with couple of polyps were removed on each occasion and they were always benign. She was noted to have a hemoglobin of 7.9 on this admission and previously it used to be around 11. Patient is on aspirin and Plavix. No history of peptic ulcer disease. She was treated empirically with Protonix in the past for suspected gastritis Review of Systems General: Reports: 10 or more systems reviewed and unremarkable except in HPI and below Meds/Allergies Home Medications and Allergies Home Medications Medication Instructions Recorded Confirmed Last Taken Type hydrochlorothiazide 25 mg PO QAM 05/24/20 09/04/20 09/04/20 History pantoprazole 40 mg tablet,delayed 40 mg PO BID #60 tab 06/03/20 09/04/20 09/04/20 Rx release Toprol XL 25 mg PO QAM 09/04/20 09/04/20 09/04/20 History acetaminophen [Tylenol Extra 1,000 mg PO PRN 09/04/20 09/04/20 Unknown History Strength] alprazolam [Xanax] See Rx Instructions .ROUTE .COMPLEX 09/04/20 09/04/20 09/04/20 09:30 History see pharmacy comment amlodipine 5 mg PO BEDTIME 09/04/20 09/04/20 09/03/20 History aspirin [Aspir-81] See Rx Instructions .ROUTE .COMPLEX 09/04/20 09/04/20 Unknown History atorvastatin 40 mg PO BEDTIME 09/04/20 09/04/20 Unknown History bumetanide See Rx Instructions .ROUTE .COMPLEX 09/04/20 09/04/20 09/03/20 History 1/2 tab-see phar com clopidogrel 75 mg PO QAM 09/04/20 09/04/20 09/02/20 History clotrimazole 10 mg PO QID PRN 09/04/20 09/04/20 Unknown History ibuprofen [Advil] 400 mg PO PRN 09/04/20 09/04/20 Unknown History levofloxacin [Levaquin] 500 mg PO QAM 09/04/20 09/04/20 09/04/20 History started on wed magnesium oxide 400 mg PO QAM PRN 09/04/20 09/04/20 Unknown History potassium chloride See Rx Instructions .ROUTE .COMPLEX 09/04/20 09/04/20 Unknown History prednisone 10 mg PO QAM 09/04/20 09/04/20 09/04/20 History sennosides-docusate sodium [Senna 3 tab PO BEDTIME 09/04/20 09/04/20 09/03/20 History Plus] tramadol [Ultram] 50 mg PO Q4H PRN 09/04/20 09/04/20 09/03/20 History see pharmacy comment trazodone 50 mg PO BEDTIME 09/04/20 09/04/20 Unknown History Allergies Allergy/AdvReac Type Severity Reaction Status Date / Time Sulfa (Sulfonamide Allergy Severe facial Verified 09/04/20 15:48 Antibiotics) swelling amantadine Allergy doesn't Verified 09/04/20 15:48 remember - thinks it shut her kidney's down indomethacin Allergy mental Verified 09/04/20 15:48 anxiety and hallucinations metronidazole [From Flagyl] Allergy vomiting Verified 08/11/20 13:42 Scirfiw-Xil-Ise Reductase AdvReac muscle Verified 09/04/20 15:48 Inhibitor aches Current Medications Current Medications Generic Name Dose Route Start Last Admin Trade Name Freq PRN Reason Stop Dose Admin Acetaminophen 650 mg 09/04/20 18:07 09/07/20 16:05 Acetaminophen 325 Mg Tablet PO 650 mg Q6H PRN Administration Mild/Mod Pain Or Temp >/= 101 Alprazolam 0.25 mg 09/04/20 17:47 09/07/20 16:05 Alprazolam 0.25 Mg Tablet PO 0.25 mg BID PRN Administration anxiety Atorvastatin Calcium 40 mg 09/04/20 21:00 09/06/20 20:54 Atorvastatin 40 Mg Tablet PO 40 mg BEDTIME EBER Administration Clopidogrel Bisulfate 75 mg 09/05/20 06:00 09/06/20 05:55 Clopidogrel 75 Mg Tablet PO 75 mg QAM EBER Administration Enoxaparin Sodium 40 mg 09/04/20 17:45 09/05/20 16:07 Enoxaparin 40 Mg/0.4 Ml Syringe SUBCUT 40 mg Q24H EBER Administration Lidocaine HCl 5 ml/ Potassium 105 mls @ 25 mls/hr 09/07/20 15:30 09/07/20 15:53 Chloride IV 09/07/20 19:41 25 mls/hr ONCE ONE Administration Lisinopril 5 mg 09/07/20 09:00 09/07/20 08:51 Lisinopril 5 Mg Tablet PO 5 mg DAILY EBER Administration Magnesium Citrate 296 ml 09/07/20 12:00 09/07/20 13:06 Magnesium Citrate Btl 296 Ml PO 09/07/20 20:01 296 ml 1200,2000 EBER Administration Metoprolol Succinate 25 mg 09/05/20 06:00 09/07/20 06:29 Metoprolol Succinate Er (24 Hr) 25 Mg Tablet PO 25 mg QAM EBER Administration Pantoprazole Sodium 40 mg 09/04/20 18:00 09/07/20 17:[address] 40 Mg Tablet PO 40 mg BID EBER Administration Polyethylene Glycol 17 gm 09/06/20 09:00 09/07/20 08:52 Polyethylene Glycol 3350 Pkt 17 Gm PO 17 gm DAILY EBER Administration Prednisone 10 mg 09/05/20 06:00 09/07/20 06:29 Prednisone 10 Mg Tablet PO 10 mg QAM EBER Administration Senna/Docusate Sodium 1 tab 09/05/20 18:00 09/07/20 17:51 Sennosides-Docusate Tablet PO 1 tab BID EBER Administration Tramadol HCl 50 mg 09/04/20 17:47 09/07/20 14:14 Tramadol 50 Mg Tablet PO 50 mg Q4H PRN Administration Pain Trazodone HCl 50 mg 09/04/20 21:00 09/06/20 20:54 Trazodone 50 Mg Tablet PO 50 mg BEDTIME EBER Administration PFSH Acute PFSH: Medical History Abnormal mammogram Dyslipidemia Essential (primary) hypertension GERD (gastroesophageal reflux disease) Hyponatremia PMR (polymyalgia rheumatica) Rheumatoid arthritis TIA (transient ischemic attack) TIA (transient ischemic attack) Toe malalignment UTI (urinary tract infection) Varicose veins of bilateral lower extremities with pain Surgical History H/O varicose vein stripping H/O: hysterectomy Family History Mother CAD (coronary artery disease) Father Parkinsons Social History Smoking and tobacco status: never smoked Alcohol intake: never Lives independently: Yes Housing: House service: No History of recent travel: No Current gender identity: Female Vitals/I&O/Wt Last Vital Signs Temp 97.8 F 09/07/20 16:00 Pulse 79 09/07/20 16:00 Resp 17 09/07/20 16:00 BP 127/78 09/07/20 16:00 Pulse Ox 98 09/07/20 16:00 09/07/20 09/07/20 09/07/20 06:59 14:59 22:59 Intake Total 300 / 300 Output Total 1600 / 2750 650 / 1900 1250 / 1900 Balance -1600 / -2510 -350 / -1600 -1250 / -1600 Physical Exam Narrative: EXAM NARRATIVE: HEENT: Normocephalic Eye: Sclera /conjunctiva normal Abdomen: Soft to palpation Neurological: Oriented to place person and time Skin: Intact, no lesions appreciated on gross exam A&P Assessment and plan (1) Anemia: 79-year-old female with multiple comorbidities currently noted to be anemic with hemoglobin of 7.9, FOBT positive currently on aspirin and Plavix, otherwise hemodynamically stable. Plan for EGD/colonoscopy under MAC Procedure, risks, benefits and alternatives have been discussed with the patient who wishes to proceed with surgery. Status: Acute Coding Level of Care Code Acute Technical Customer Support Specialist for [facility] Fwd Diagnoses Anemia D64.9
[2020-09-07] MEDS: trazodone 50 mg Tablet PO (20:03)
[2020-09-07] MEDS: atorvastatin 40 mg Tablet PO (20:03)
[2020-09-07 21:12] LABS: Hematocrit 30.7 % (37.0-47.0)
[2020-09-08] VITALS (8 sets, daily range): BP systolic 117–161; BP diastolic 49–80; PULSE 68–85; RESP 16–18; TEMP 36.3–36.9; O2SAT 94–100
[2020-09-08 05:49] LABS: Basophils # 0.1 10^3/uL (0.0-0.1); Basophils % 0.5 %; Eosinophils # 0.4 10^3/uL (0.0-0.8); Eosinophils % 2.9 %; Hematocrit 27.5 % (37.0-47.0); Hemoglobin 8.1 g/dL (11.5-15.3); Lymphocytes # 3.6 10^3/uL (0.8-4.8); Lymphocytes % 27.7 %; Mean Corpuscular HGB Conc 29.5 g/dL (30.0-36.0); Mean Corpuscular Hemoglobin 23.8 pg (28.0-34.0); Mean Corpuscular Volume 80.9 fL (81-99); Mean Platelet Volume 8.4 fL (7.4-10.4); Monocytes # 1.3 10^3/uL (0.2-0.9); Monocytes % 9.9 %; Neutrophils # 7.28 10^3/uL (1.8-7.7); Neutrophils % 56.4 %; Nucleated Red Blood Cells % 0 %; Platelet Count 533 10^3/cmm (130-400); Red Cell Distribution Width 17.2 % (12.1-15.1); White Blood Count 12.9 10^3/uL (4.0-10.0)
[2020-09-08] MEDS: predniSONE 10 mg Tablet PO (06:01)
[2020-09-08] MEDS: metoprolol succinate ER (24 HR) 25 mg Tablet PO (06:01)
[2020-09-08 06:23] LABS: Alanine Aminotransferase 13 U/L (0-33); Alkaline Phosphatase 39 IU/L (35-105); Anion Gap 10.1 (5-19); Aspartate Amino Transferase 18 U/L (0-32); Carbon Dioxide 28 mmol/L (22-29); Globulin 2.4 g/dL (1.3-4.6); Glucose 90 mg/dL (65-115); Total Bilirubin 0.4 mg/dL (0.15-1.2)
[2020-09-08 07:01] LABS: Blood Urea Nitrogen 6 mg/dL (8-23); Calcium 9.7 mg/dL (8.5-10.5)
--- NOTE | 2020-09-08 07:23 | PC.NURSE ---
Patient off unit at this time, with Thang from OPS.
--- NOTE | 2020-09-08 07:48 | NUR.SHIFT ---
Patient had multiple BM's throughout the night. However, the patient still had to receive an anima. Otherwise the patient slept otherwise.
[2020-09-08 07:55] LABS: Albumin Level 3.1 g/dL (3.5-5.2); Chloride 95 mmol/L (98-107); Osmolality Calculated 267 mOsm/kg (285-295); Potassium 3.1 mmol/L (3.5-5.1); Sodium 130 mmol/L (136-145); Total Protein 5.5 g/dL (6.6-8.7)
--- NOTE | 2020-09-08 08:02 | P.ANESASSM_ITS ---
Pre-Anesthetic Assessment Pre-Anesthetic Assessment: Height/Weight: Height 1.73 m Weight 94.347 kg Temp Pulse Resp BP Pulse Ox 97.3 F L 72 18 117/67 97 09/08/20 07:30 09/08/20 07:30 09/08/20 07:30 09/08/20 07:30 09/08/20 07:30 Preop Diagnosis: anemia Proposed Procedure: Operation Date: 09/08/20 08:45 Proposed Procedures p EGD(Not Applicable) - Carlo Luque MD s Colonoscopy(Not Applicable) - Carlo Luque MD Familial anesthetic complications: Patient states her heart beat irregularly during a tubal many years ago, but is unsure if it happened before, during or after, unable to provide any further details Was Beta Hussein taken within 24 hours: Yes Last intake: NPO > 8 hrs Social: Social History: No alcohol and No tobacco Exam: Pre-Anes Outpt Exam: alert, oriented x 3, clear to auscultation bilaterally and regular rate & rhythm Airway: Cervical ROM: WNL MP: 2 Dentition: False CV/HEM: CV/HEM: Anemia, Angina (Stable) and HTN Comments: thrombocytosis GI: GI: GERD Metabolic: Metabolic: Hyperlipidemia Musc/skel: Comments: polymyalgia rhumatica on prednisone crhonically Neuropsych: Neuropsych: TIA Anesthetic Plan: ASA status: 3 Anesthesia: MAC Risk of > 500 ml blood loss (7ml/kg in children): No Meds/Allergies Current Medications: Current Medications Generic Name Dose Route Start Last Admin Trade Name Freq PRN Reason Stop Dose Admin Acetaminophen 650 mg 09/04/20 18:07 09/07/20 16:05 Acetaminophen 32 5 Mg Tablet PO 650 mg Q6H PRN Administration Mild/Mod Pain Or Temp >/= 101 Alprazolam 0.25 mg 09/04/20 17:47 09/07/20 16:05 Alprazolam 0.25 Mg Tablet PO 0.25 mg BID PRN Administration anxiety Atorvastatin Calci um 40 mg 09/04/20 21:00 09/07/20 20:03 Atorvastatin 40 Mg Tablet PO 40 mg BEDTIME EBER Administration Clopidogrel Bisulf ate 75 mg 09/05/20 06:00 09/06/20 05:55 Clopidogrel 75 M g Tablet PO 75 mg QAM EBER Administration Enoxaparin Sodium 40 mg 09/04/20 17:45 09/05/20 16:07 Enoxaparin 40 Mg /0.4 Ml Syringe SUBCUT 40 mg Q24H EBER Administration Lisinopril 5 mg 09/07/20 09:00 09/07/20 08:51 Lisinopril 5 Mg Tablet PO 5 mg DAILY EBER Administration Metoprolol Succina te 25 mg 09/05/20 06:00 09/08/20 06:01 Metoprolol Succi joselyn Er (24 Hr) 25 Mg Tablet PO 25 mg QAM EBER Administration Pantoprazole Sodiu m 40 mg 09/04/20 18:00 09/07/20 17:[address] 40 Mg Tablet PO 40 mg BID EBER Administration Polyethylene Glyco l 17 gm 09/06/20 09:00 09/07/20 08:52 Polyethylene Gly col 3350 Pkt 17 Gm PO 17 gm DAILY EBER Administration Prednisone 10 mg 09/05/20 06:00 09/08/20 06:01 Prednisone 10 Mg Tablet PO 10 mg QAM EBER Administration Senna/Docusate Sod ium 1 tab 09/05/20 18:00 09/07/20 17:51 Sennosides-Docus ate Tablet PO 1 tab BID EBER Administration Tramadol HCl 50 mg 09/04/20 17:47 09/07/20 14:14 Tramadol 50 Mg T ablet PO 50 mg Q4H PRN Administration Pain Trazodone HCl 50 mg 09/04/20 21:00 09/07/20 20:03 Trazodone 50 Mg Tablet PO 50 mg BEDTIME EBER Administration PFSH Anesthesia PFSH: Medical History Abnormal mammogram Dyslipidemia Essential (primary) hypertension GERD (gastroesophageal reflux disease) Hyponatremia PMR (polymyalgia rheumatica) Rheumatoid arthritis TIA (transient ischemic attack) TIA (transient ischemic attack) Toe malalignment UTI (urinary tract infection) Varicose veins of bilateral lower extremities with pain Surgical History H/O varicose vein stripping H/O: hysterectomy Family History Mother CAD (coronary artery disease) Father Parkinsons Social History Smoking and tobacco status: never smoked Alcohol intake: never Lives independently: Yes Housing: House service: No History of recent travel: No Current gender identity: Female Data Anesthesia CBC & Chem 7: 09/08/20 04:39 09/08/20 04:39 Other Labs: Laboratory Results - last 48 hr 09/06/20 09/07/20 09/07/20 11:35 05:14 05:14 WBC 12.4 H RBC 3.13 L Hgb 7.6 L Hct 25.2 L MCV 80.5 L MCH 24.3 L MCHC 30.2 RDW 17.1 H Plt Count 512 H MPV 8.5 Neut % (Auto) 54.4 Lymph % (Auto) 29.3 [place] % (Auto) 10.6 Eos % (Auto) 2.8 Baso % (Auto) 0.7 Neut # (Auto) 6.77 Lymph # (Auto) 3.6 [place] # (Auto) 1.3 H Eos # (Auto) 0.4 Baso # (Auto) 0.1 Nucleated RBC % (auto) 0 Nucleated RBCs # 0.0 Sodium 132 L Potassium 3.4 L Chloride 96 L Carbon Dioxide 27 Anion Gap 12.4 BUN 5 L Creatinine 0.6 GFR Calculation Not Reportable Glucose 87 Calculated Osmolality 271 L Calcium 9.0 Total Bilirubin 0.3 AST 17 ALT 10 Alkaline Phosphatase 36 Total Protein 5.3 L Albumin 3.1 L Globulin 2.2 Ur Random Sodium 94 Ur Random Potassium 26 Ur Random Chloride 81 Urine Creatinine 35 09/07/20 09/08/20 09/08/20 20:57 04:39 04:39 WBC 12.9 H RBC 3.40 L Hgb 9.0 L 8.1 L Hct 30.7 L 27.5 L MCV 80.9 L MCH 23.8 L MCHC 29.5 L RDW 17.2 H Plt Count 533 H MPV 8.4 Neut % (Auto) 56.4 Lymph % (Auto) 27.7 [place] % (Auto) 9.9 Eos % (Auto) 2.9 Baso % (Auto) 0.5 Neut # (Auto) 7.28 Lymph # (Auto) 3.6 [place] # (Auto) 1.3 H Eos # (Auto) 0.4 Baso # (Auto) 0.1 Nucleated RBC % (auto) 0 Nucleated RBCs # 0.0 Sodium 130 L Potassium 3.1 L Chloride 95 L Carbon Dioxide 28 Anion Gap 10.1 BUN 6 L Creatinine 0.7 GFR Calculation Not Reportable Glucose 90 Calculated Osmolality 267 L Calcium 9.7 Total Bilirubin 0.4 AST 18 ALT 13 Alkaline Phosphatase 39 Total Protein 5.5 L Albumin 3.1 L Globulin 2.4 Ur Random Sodium Ur Random Potassium Ur Random Chloride Urine Creatinine Cardiac Studies: No Data to Display
[2020-09-08] MEDS: sodium chloride 0.9% 1,000 ML 30 ML IV (08:52)
--- NOTE | 2020-09-08 10:09 | P.PN_ITS ---
Subjective Subjective: Interval history: no issues overnight , patient tolerated bowel prep Vitals/I&O/Wt Last Vital Signs Temp 97.3 F L 09/08/20 07:30 Pulse 72 09/08/20 07:30 Resp 18 09/08/20 07:30 BP 117/67 09/08/20 07:30 Pulse Ox 97 09/08/20 07:30 09/07/20 09/08/20 09/08/20 22:59 06:59 14:59 Output Total 1350 / 2000 400 / 400 Balance -1350 / -1700 -400 / -400 Physical Exam Narrative: EXAM NARRATIVE: Abdomen: Soft Data : 09/08/20 04:39 09/08/20 04:39 A&P Assessment and plan (1) Anemia: 79-year-old female with anemia, hemodynamically stable currently on aspirin and Plavix for TIA. Plan for EGD/colonoscopy under MAC today Procedure, risks, benefits and alternatives have been discussed with the patient who wishes to proceed with surgery. Status: Acute Attestations Medical Necessity Statement*: Anemia Coding Level of Care Code Acute Accountant Systems for g Fwd Diagnoses Anemia D64.9
--- NOTE | 2020-09-08 10:53 | SUR.PHASEI ---
PT AWAKE ALERT RESTING ON LT SIDE PT ON RA VSS PT PASSING FLATUS , DENIES PAIN AND NAUSEA, CALLING REPORT TO FLOOR.
--- NOTE | 2020-09-08 11:32 | PC.NURSE ---
Patient returned to floor received report from Sarahi.
[2020-09-08] MEDS: lidocaine 1% 5 ML in potassium chloride premix 100 ML 25 ML IV (14:07)
[2020-09-08 14:25] LABS: Glucose Point of Care 105 mg/dL (70-110)
[2020-09-08] MEDS: TRAMadol 50 mg Tablet PO (14:44)
[2020-09-08] MEDS: ALPRAZolam 0.25 mg Tablet PO (14:45)
--- NOTE | 2020-09-08 16:08 | ANE.PACU2 ---
Inpatient post-anesthesia follow up: Airway intact: Yes Vital signs: Temperature 98.2 F Pulse Rate [Left R adial] 66 Pulse Rate 77 Respiratory Rate 16 Blood Pressure [Le ft Arm] 180/89 Blood Pressure 161/80 Pulse Oximetry 94 Oxygen Delivery Me thod Room Air Oxygen Flow Rate Fraction of Inspir ed Oxygen Hydration adequate: Yes Nausea and vomiting: No Pain level: 2 Mental status: Baseline
--- NOTE | 2020-09-08 17:36 | P.DS_ITS ---
Discharge Providers Date of Admission: 09/04/20 16:19 Date of Discharge: September 08, 2020 Attending Provider at Admission: Jasmin Ac MD Attending Provider at Discharge: Jasmin Ac MD Primary Care Provider: Kim Gaytan APN Diagnoses at Discharge Discharge Diagnosis (1) Anemia: Status: Acute (2) Hypertension: Status: Acute (3) Leukocytosis: Status: Acute (4) Hypokalemia: Status: Acute (5) Generalized weakness: Status: Acute (6) Chronic hyponatremia: Status: Acute (7) Varicose veins of bilateral lower extremities with pain: Status: Acute (8) Hyperlipidemia: Status: Acute Qualifiers: Hyperlipidemia type: other hyperlipidemia Qualified Code(s): E78.49 - Other hyperlipidemia Reason for Visit Reason for Visit: WEAKNESS, NO APPETITE, DEHYDRATED Hospital Course Hospital Course 79 year old female with a past medical history of polymyalgia rheumatica for which she follows with ui application developer in [place] for several years, currently only on prednisone 10 mg p.o. daily, hypertension, GERD, chronic hyponatremia likely secondary to hydrochlorothiazide who presented to the hospital with chief complaints of generalized weakness. Patient states that she was started on Lasix for lower extremity swelling around 3 to 4 weeks ago by her primary care provider. She does not know what was the cause of the lower extremity swelling, however likely to be related to varicose veins and h/o venous stripping. She was started on lasix and then Bumex approx 2-3 weeks CLOSING COORDINATOR. Over this same david frame she reported a weight loss of around 7 to 8 pounds, poor appetite, nausea, increased bloating and muscle weakness which has kept her in bed for the most part. She reports no orthopnea or paroxysmal nocturnal dyspnea. Denies any complains of chest pain. Does report some shortness of breath with exertion over the past 2 to 3 months. Echocardiogram was performed in May 2020 when she had presented with symptoms of CVA, at the time she was noted to have LVEF of 62% without any regional wall motion abnormalities and grade 104 diastolic dysfunction with normal to mildly elevated filling pressures. No significant change was found compared to the study of February 2019. Venous Duplay in May 2020 did not show any evidence of DVT. She visited with Dr. Welch in the office in June 2020 for complaints of precordial chest pain which at that time appeared to be related to gastritis and she had a trial of Protonix, however she states this has not changed her symptoms very much. On admission she was noted also to have a hemoglobin of 7.9, later during admission reported loose black stools for 3 weeks which she attributed to laxative use. She was recently started on DAPT with ASA and plavix in May 2020 after having a TIA which presented as left facial weakness and left hemiparesis, resolved in approx 3 days. Diagnostics in the ER are notable for chronic hyponatremia with sodium of 120, potassium 2.4, leukocytosis of 16. For her new anemia, weight loss and h/o mervat with +FOBT, there was concern for GI bleed and underlying malignancy vs bleeding from gastricc ulcer from DAPT and NSAID use. She underwent EGD and colonoscopy on 09/08/19 which did not show any obvious source of bleeding. No ulcers or colonic mass noted. Ibuprofen, plavix d/c ed on discharge. Had extensive discussion about patient continuing monotherapy with aspirin versus Plavix. Told her that Plavix might be better from a GI bleed perspective, however patient is extremely hesitant to resume Plavix as she believes all of her symptoms started after being started on Plavix. She had been taking aspirin for primary prophylaxis for several years until stopping it about a year ago and said that by 4 she will feel most comfortable being on baby aspirin again. Other work-up for anemia showed low iron stores, normal TIBC, normal B12 folate and TSH. When she was started on supplemental iron. Daughter also reported that since her CVA she has not been cooking her meals and instead has been getting her meals delivered from [employer]. Uncertain if nutritional deficiencies may be contributing to her anemia. I have discussed with the patient that is important to follow-up with her primary care provider in the next 3 weeks to see if anemia is improving with iron supplementation and to recheck hemoglobin levels. If improvement fails to occur, consider hematology referral for the anemia and also noted mild thrombocytosis and leukocytosis since at least June of this year. For her lower extremity edema, it was advised that she take Lasix only as needed as it may be contributing to her hypokalemia. Additionally amlodipine was switched to lisinopril for blood pressure control. She is encouraged to maintain a blood pressure chart and if systolic blood pressure greater than 160 consistently then to increase lisinopril dose to 10 mg daily. Her daughter is a pharmacist and states she can assist her with this task. Otherwise to keep her feet propped up and use compression stockings. Consideration was given for statin myopathy given generalized weakness, however her CPK level was normal and atorvastatin was continued. Given persistent hyponatremia with sodium level around 120 for last several months, hydrochlorothiazide was discontinued. She is advised not to resume this medication until follow-up with her primary care provider Hypokalemia was repleted with IV and p.o. potassium supplementation. She feels improved on the day of discharge and is eager to return home. Physical Exam Narrative: EXAM NARRATIVE: GEN: Awake, alert and oriented, no acute distress CVS: S1S2 N RS: CTA B/L Abd: Soft, nt/nd , bs+ POWER SHOVEL ENGINEER: no focal neuro deficits Discharge Data Data Completed and Pending: Completed Studies During Hospitalization Category Date Time Status XR abdomen 1V* [id number] Routine Exams 09/05/20 17:03 Completed XR chest 1V elsie ble [id number] Stat Exams 09/04/20 14:57 [place] [id number] Stat Ultrasound 09/04/20 14:33 Completed Pending at discharge Category Date Time Status Miscellaneous Roz t Routine Lab 09/06/20 05:25 Ordered Labs from last 24 hours 09/08/20 09/08/20 09/08/20 12:18 04:39 04:39 WBC 12.9 H RBC 3.40 L Hgb 8.1 L Hct 27.5 L MCV 80.9 L MCH 23.8 L MCHC 29.5 L RDW 17.2 H Plt Count 533 H MPV 8.4 Neut % (Auto) 56.4 Lymph % (Auto) 27.7 [place] % (Auto) 9.9 Eos % (Auto) 2.9 Baso % (Auto) 0.5 Neut # (Auto) 7.28 Lymph # (Auto) 3.6 [place] # (Auto) 1.3 H Eos # (Auto) 0.4 Baso # (Auto) 0.1 Nucleated RBC % (a uto) 0 Nucleated RBCs # 0.0 Sodium 130 L Potassium 3.1 L Chloride 95 L Carbon Dioxide 28 Anion Gap 10.1 BUN 6 L Creatinine 0.7 GFR Calculation Not Reportable Glucose 90 POC Glucose 105 Calculated Osmolal ity 267 L Calcium 9.7 Total Bilirubin 0.4 AST 18 ALT 13 Alkaline Phosphata se 39 Total Protein 5.5 L Albumin 3.1 L Globulin 2.4 09/07/20 20:57 WBC RBC Hgb 9.0 L Hct 30.7 L MCV MCH MCHC RDW Plt Count MPV Neut % (Auto) Lymph % (Auto) [place] % (Auto) Eos % (Auto) Baso % (Auto) Neut # (Auto) Lymph # (Auto) [place] # (Auto) Eos # (Auto) Baso # (Auto) Nucleated RBC % (a uto) Nucleated RBCs # Sodium Potassium Chloride Carbon Dioxide Anion Gap BUN Creatinine GFR Calculation Glucose POC Glucose Calculated Osmolal ity Calcium Total Bilirubin AST ALT Alkaline Phosphata se Total Protein Albumin Globulin Vitals: Last Vital Signs Temp 98.4 F 09/08/20 16:00 Pulse 85 09/08/20 16:00 Resp 16 09/08/20 16:00 BP 117/49 09/08/20 16:00 Pulse Ox 98 09/08/20 16:00 Discharge Plan Discharge Patient Disposition: Home Condition: Stable Prescriptions: New lisinopril 5 mg Tablet 5 mg PO DAILY 30 Days Qty: 30 RF: 0 ferrous gluconate 324 mg (37.5 mg iron) tablet 324 mg PO DAILY Qty: 60 RF: 0 Continued pantoprazole 40 mg tablet,delayed release (DR/EC) 40 mg PO BID Qty: 60 RF: 5 atorvastatin 40 mg tablet 40 mg PO BEDTIME RF: 0 clotrimazole 10 mg kristi 10 mg PO QID PRN (Reason: unknown) RF: 0 prednisone 10 mg tablet 10 mg PO QAM RF: 0 trazodone 50 mg Tablet 50 mg PO BEDTIME RF: 0 Senna Plus 8.6-50 mg Tablet 3 tab PO BEDTIME RF: 0 potassium chloride 10 mEq tablet extended release See Rx Instructions .ROUTE .COMPLEX RF: 0 aspirin 81 mg Tablet,Delayed Release (Dr/Ec) See Rx Instructions .ROUTE .COMPLEX RF: 0 Ultram 50 mg Tablet 50 mg PO Q4H PRN (Reason: Pain) RF: 0 Tylenol Extra Strength 500 mg Tablet 1,000 mg PO PRN RF: 0 Xanax 0.25 mg Tablet See Rx Instructions .ROUTE .COMPLEX RF: 0 magnesium oxide 400 mg magnesium Tablet 400 mg PO QAM PRN (Reason: leg cramps) RF: 0 Toprol XL 25 mg tablet extended release 24 hr 25 mg PO QAM RF: 0 Discontinued clopidogrel 75 mg tablet 75 mg PO QAM RF: 0 ibuprofen [Advil] 200 mg Tablet 400 mg PO PRN RF: 0 bumetanide 1 mg tablet See Rx Instructions .ROUTE .COMPLEX RF: 0 levofloxacin [Levaquin] 500 mg Tablet 500 mg PO QAM RF: 0 amlodipine 5 mg tablet 5 mg PO BEDTIME RF: 0 hydrochlorothiazide 25 mg tablet 25 mg PO QAM RF: 0 Discharge Orders: Discharge Order (Routine); Ordered 09/08/20 Ordered By: Jasmin Ac Referrals: Leonid Bruce MD [Physician] - 09/21/20 9:00 am (new anemia,s/p colonoscopy) Discharge Diet: Advance as tolerated Discharge Activity: Resume usual activity Patient Instructions: Iron Supplements (By mouth), Lisinopril (By mouth), GI Bleeding, Hypokalemia Discharge Attestations Time Spent in Discharge Care*: greater than 30 min Specific Discharge Activities: educating patient, educating and/or supporting family/caregiver, discussing with pcp/other providers, documenting/other paperwork and evaluating patient/reviewing data Status at Discharge: Cognitive status at discharge: cognitively intact , Behavioral status at discharge: cooperative , Quality Metrics Clinical Quality Measures During this hospital stay, did patient experience: None Coding Level of Care Code Acute Senior Training And Development Rep for Ehsan Fwd Diagnoses Anemia D64.9 Hypertension I10 Leukocytosis D72.829 Hypokalemia E87.6 Generalized weakness R53.1 Chronic hyponatremia E87.1 Varicose veins of bilateral lower extremities with pain I83.813 Hyperlipidemia E78.49 Hyperlipidemia type: other hyperlipidemia
[2020-09-08 17:42] LABS: Glucose Point of Care 131 mg/dL (70-110)
--- NOTE | 2020-09-08 19:06 | PC.NURSE ---
Discharge instructions given to patient and daughter, all questions answered. Patient discharged at this time in stable condition.
== END 2020-09-08 19:08 | disposition home or self-care (01) | DRG 641 ==
LOC: ER 13:06 → MEDSURG 17:26
PROVIDERS: Surgery; Admitting Provider Student in an Organized Health Care Education/Training Program; Emergency Provider Family Medicine; PCP Nurse Practitioner Family; Visit Provider Student in an Organized Health Care Education/Training Program
PROC: 0DJ08ZZ Inspection of Upper Intestinal Tract, Via Natural or Artificial Opening Endoscopic (ICD-10-PCS; CPT 43235; principal; 2020-09-08 08:45)
PROC: 0DJD8ZZ Inspection of Lower Intestinal Tract, Via Natural or Artificial Opening Endoscopic (ICD-10-PCS; CPT 45378; 2020-09-08 08:45)
DX: E87.6 Hypokalemia (principal); D50.9 Iron deficiency anemia, unspecified; M35.3 Polymyalgia rheumatica; Z79.52 Long term (current) use of systemic steroids; I10 Essential (primary) hypertension; K21.9 Gastro-esophageal reflux disease without esophagitis; E87.1 Hypo-osmolality and hyponatremia; Z86.73 Personal history of transient ischemic attack (TIA), and cerebral infarction without residual deficits; E78.5 Hyperlipidemia, unspecified; M06.9 Rheumatoid arthritis, unspecified; Z87.440 Personal history of urinary (tract) infections; E86.0 Dehydration; Z79.82 Long term (current) use of aspirin
CPT/HCPCS: 12345; 36415; 36416; 43235; 45378; 71045; 74018; 80053; 81003; 82274; 82436; 82533; 82550; 82570; 82607; 82728; 82746; 82962; 83540; 83550; 84133; 84145; 84300; 84443; 84484; 85014; 85018; 85025; 85045; 87493; 87635; 90471; 90686; 93005; 93970; 97116; 97161; 97530; 99283; J1650; J2060; J2704; J3480; J7030; J7512

== ENCOUNTER 2020-09-28 16:26 | Outpatient (CLI) | payer MEDICARE, BC, SELFPAY ==
--- NOTE | 2020-09-28 17:58 | PC.NURSE ---
Test Puller called Dr Bruce to get orders for blood. Per Dr Bruce, order 1 unit of blood. patient is to be discharged home after administration of 1 unit of blood. Test Puller put orders in for 1 unit of blood.
[2020-09-28 20:30] VITALS: PULSE 79; RESP 18; TEMP 36.7
[2020-09-28 20:50] VITALS: BP 173/87; PULSE 72; RESP 18; TEMP 36.8; O2SAT 94
[2020-09-28 21:05] VITALS: BP 182/88; PULSE 72; RESP 18; TEMP 36.8; O2SAT 95
[2020-09-28 22:05] VITALS: BP 185/97; PULSE 74; RESP 18; TEMP 36.7; O2SAT 94
[2020-09-28 23:40] VITALS: BP 181/84; PULSE 74; RESP 18; TEMP 36.6; O2SAT 98
--- NOTE | 2020-09-29 01:59 | PC.NURSE ---
Pt's daughter was present in room when IV was d/c. Pt's daughter took belongings down the car while pt used the bathroom and prepared for d/c. This nurse wheeled pt down via wheelchair to meet daughter at [id number].
== END 2020-09-29 00:09 | disposition home or self-care (01) ==
LOC: LAB 16:37 → MEDSURG 09-29 09:29
PROVIDERS: PCP Nurse Practitioner Family; Visit Provider Internal Medicine
DX: D64.9 Anemia, unspecified (principal); R60.0 Localized edema; I10 Essential (primary) hypertension; R35.0 Frequency of micturition; E87.6 Hypokalemia
CPT/HCPCS: 36415; 36430; 80053; 81003; 83036; 85025; 86850; 86900; 86920; P9016

== ENCOUNTER → 2020-10-12 14:55 | Outpatient (BNVA) | payer MEDICARE, BC, SELFPAY | PROVIDERS: PCP Nurse Practitioner Family; Visit Provider Internal Medicine | DX: D64.9 Anemia, unspecified (principal) | CPT/HCPCS: 80053; 85025 ==

== ENCOUNTER → 2020-10-25 15:42 | Outpatient (BNVA) | payer MEDICARE, BC, SELFPAY | PROVIDERS: PCP Nurse Practitioner Family; Visit Provider Internal Medicine | DX: D64.9 Anemia, unspecified (principal) | CPT/HCPCS: 80053; 85025 ==

== ENCOUNTER → 2020-12-06 13:55 | Outpatient (BNVA) | payer MEDICARE, BC, SELFPAY | PROVIDERS: PCP Nurse Practitioner Family; Visit Provider Internal Medicine | DX: R53.1 Weakness (principal); D64.9 Anemia, unspecified | CPT/HCPCS: 80053; 81003; 83550; 85025 ==

== ENCOUNTER 2021-01-25 15:33 | Outpatient (CLI) | payer MEDICARE, BC, SELFPAY ==
--- NOTE | 2021-01-25 15:45 | XR_ITS ---
WS: [id number] Exam: XR lumbar spine 2-3V* [id number] Date/Time of Exam: 01/25/2021 3:59 PM Reason For Exam: back pain No acute fracture or dislocation. Advanced degenerative disc changes from L1 to L3. Dextroscoliosis. Facet arthropathy at all levels. Marked osteopenia. XR/XR lumbar spine 2-3V* [id number] IMPRESSION: 1. Degenerative changes and osteopenia. 2. No fracture or malalignment. 3. Dextroscoliosis.
== END 2021-01-25 15:34 | disposition home or self-care (01) ==
LOC: RAD 15:40
PROVIDERS: PCP Nurse Practitioner Family; Visit Provider Internal Medicine
DX: M47.896 Other spondylosis, lumbar region (principal); M85.88 Other specified disorders of bone density and structure, other site; M54.5 Low back pain
CPT/HCPCS: 72100

== ENCOUNTER → 2021-02-11 10:29 | Outpatient (BNVA) | payer MEDICARE, BC, SELFPAY | PROVIDERS: PCP Nurse Practitioner Family; Referring Provider Internal Medicine; Visit Provider Anesthesiology Pain Medicine | DX: G89.29 Other chronic pain (principal); M47.816 Spondylosis without myelopathy or radiculopathy, lumbar region; M51.36 Other intervertebral disc degeneration, lumbar region; Z79.891 Long term (current) use of opiate analgesic | CPT/HCPCS: 99204 ==

== ENCOUNTER → 2021-02-22 14:02 | Outpatient (BNVA) | payer MEDICARE, BC, SELFPAY | PROVIDERS: PCP Internal Medicine; Visit Provider Anesthesiology Pain Medicine | DX: M47.816 Spondylosis without myelopathy or radiculopathy, lumbar region (principal); Z79.891 Long term (current) use of opiate analgesic | CPT/HCPCS: 64493; 64494; 64495; J3490 ==

== ENCOUNTER 2021-03-01 06:00 | Outpatient (RCR) | payer MEDICARE, BC, SELFPAY | END 2021-03-02 23:59 | disposition home or self-care (01) | LOC: TPT 06:00 | PROVIDERS: PCP Internal Medicine; Referring Provider Anesthesiology Pain Medicine; Visit Provider Anesthesiology Pain Medicine | DX: M54.5 Low back pain (principal); G89.29 Other chronic pain | CPT/HCPCS: 97110; 97162 ==

== ENCOUNTER 2021-03-03 06:00 | Outpatient (RCR) | payer MEDICARE, BC, SELFPAY | END 2021-04-02 23:59 | disposition home or self-care (01) | LOC: TPT 06:00 | PROVIDERS: PCP Internal Medicine; Referring Provider Anesthesiology Pain Medicine; Visit Provider Anesthesiology Pain Medicine | DX: M54.5 Low back pain (principal); G89.29 Other chronic pain | CPT/HCPCS: 97110 ==

== ENCOUNTER → 2021-03-10 10:38 | Outpatient (BNVA) | payer MEDICARE, BC, SELFPAY | PROVIDERS: PCP Internal Medicine; Visit Provider Anesthesiology Pain Medicine | DX: M47.816 Spondylosis without myelopathy or radiculopathy, lumbar region (principal); M51.36 Other intervertebral disc degeneration, lumbar region; Z79.891 Long term (current) use of opiate analgesic | CPT/HCPCS: 99214 ==

== ENCOUNTER → 2021-03-24 14:47 | Outpatient (BNVA) | payer MEDICARE, BC, SELFPAY | PROVIDERS: PCP Internal Medicine; Visit Provider Internal Medicine | DX: R30.9 Painful micturition, unspecified (principal) | CPT/HCPCS: 81000; 81003; 87077; 87086; 87184 ==

== ENCOUNTER 2021-04-03 06:00 | Outpatient (RCR) | payer MEDICARE, BC, SELFPAY | END 2021-05-03 23:59 | disposition home or self-care (01) | LOC: TPT 06:00 | PROVIDERS: PCP Internal Medicine; Referring Provider Anesthesiology Pain Medicine; Visit Provider Anesthesiology Pain Medicine | DX: M54.5 Low back pain (principal); G89.29 Other chronic pain | CPT/HCPCS: 97110; G0283 ==

== ENCOUNTER → 2021-04-05 14:11 | Outpatient (BNVA) | payer MEDICARE, BC, SELFPAY | PROVIDERS: PCP Internal Medicine; Visit Provider Internal Medicine | DX: R30.9 Painful micturition, unspecified (principal) | CPT/HCPCS: 81000 ==

== ENCOUNTER → 2021-05-03 13:18 | Outpatient (BNVA) | payer MEDICARE, BC, SELFPAY | PROVIDERS: PCP Internal Medicine; Visit Provider Anesthesiology Pain Medicine | DX: M47.816 Spondylosis without myelopathy or radiculopathy, lumbar region (principal) | CPT/HCPCS: 64635; 64636; J1030 ==

== ENCOUNTER → 2021-05-17 10:16 | Outpatient (BNVA) | payer MEDICARE, BC, SELFPAY | PROVIDERS: PCP Internal Medicine; Visit Provider Anesthesiology Pain Medicine | DX: M48.062 Spinal stenosis, lumbar region with neurogenic claudication (principal); M47.816 Spondylosis without myelopathy or radiculopathy, lumbar region; M51.36 Other intervertebral disc degeneration, lumbar region; Z79.891 Long term (current) use of opiate analgesic | CPT/HCPCS: 99214 ==

== ENCOUNTER → 2021-05-26 14:28 | Outpatient (BNVA) | payer MEDICARE, BC, SELFPAY | PROVIDERS: PCP Internal Medicine; Visit Provider Internal Medicine | DX: I10 Essential (primary) hypertension (principal); R41.0 Disorientation, unspecified; D64.9 Anemia, unspecified; E87.6 Hypokalemia | CPT/HCPCS: 80048; 81003; 85025; 87077; 87086; 87184 ==

== ENCOUNTER 2021-06-07 13:08 | Outpatient (CLI) | payer MEDICARE, BC, SELFPAY ==
--- NOTE | 2021-06-07 13:20 | MR_ITS ---
WS: [id number] MRI LUMBAR SPINE NONCONTRAST HISTORY: SPINAL STENOSIS, LUMBAR REGION COMPARISON: None available. TECHNIQUE: Sagittal and axial multisequence imaging is submitted. Mild increase in thoracic kyphosis. Moderate RIGHT scoliosis of the lumbar spine. L2 retrolisthesis by 5 mm. Disc spaces are mildly desiccated and narrowed throughout. Most significant degenerative disc disease is at L2-3. There is a very small amount of marrow edema within the RIGHT lateral L3 pedicle Conus terminates normally at L1. L1-L2: Mild RIGHT foraminal narrowing due to the scoliosis. No stenosis. L2-L3: Diffuse moderate osteophytic ridging and annular disc bulging. Disc and osteophyte encroachmen t into the LEFT lateral recess and LEFT subarticular foramen with significant encroachment upon the t raversing L3 nerve root. Mild RIGHT and moderate LEFT facet joint arthritis and ligamentum flavum hyp ertrophy. Mild foraminal narrowing. L3-L4: Diffuse moderate annular disc bulging and osteophytic ridging. Disc is asymmetric extending in to the LEFT foramen and LEFT subarticular recess due to the scoliosis. Moderate ligamentum flavum hyp ertrophy and bilateral facet joint arthritis. Mild central stenosis with bilateral lateral recess and foraminal stenosis. Small amount of fluid in the facet joints bilaterally. L4-L5: Diffuse mild annular disc bulging with bilateral mild facet joint arthritis. The disc is encro aching upon the ventral thecal sac. Mild contact on the traversing L5 nerve roots with a more focal R IGHT foraminal disc protrusion abutting the exiting RIGHT L4 nerve root. Mild RIGHT foraminal stenosi s. L5-S1: Mild annular disc bulge with a central disc protrusion. Disc protrusion is contacting but not displacing the LEFT S1 nerve root. Mild bilateral facet arthritis. Paravertebral soft tissues are normal. MR/MR lumbar spine wo con* [id number] IMPRESSION: 1. Moderate RIGHT scoliosis lumbar spine. 2. Small amount of marrow edema in the RIGHT L3 pedicle. No fracture identifie d. 3. Multifactorial narrowing and stenosis of the LEFT L2-3 lateral recess and s ubarticular recess. Due to combination of facet disease, disc and osteophyte. S ignificant encroachment upon the traversing L3 nerve root on the LEFT. 4. Mild central stenosis with bilateral lateral recess and foraminal stenosis at L3-4. 5. Mild disc contact but not displacement of the L5 nerve roots at the L4-5 le monica. 6. Small central disc protrusion at L5-S1 with mild contact on the LEFT S1 ner ve root. 7. Multilevel moderate to severe bilateral facet joint arthritis throughout th e lumbar spine beginning at the L2-3 level through L4-5.
== END 2021-06-07 13:09 | disposition home or self-care (01) ==
PROVIDERS: PCP Internal Medicine; Visit Provider Anesthesiology Pain Medicine
DX: M48.062 Spinal stenosis, lumbar region with neurogenic claudication (principal); M41.86 Other forms of scoliosis, lumbar region; R60.0 Localized edema; M51.27 Other intervertebral disc displacement, lumbosacral region; M47.816 Spondylosis without myelopathy or radiculopathy, lumbar region
CPT/HCPCS: 72148

== ENCOUNTER → 2021-06-09 15:30 | Outpatient (BNVA) | payer MEDICARE, BC, SELFPAY | PROVIDERS: PCP Internal Medicine; Visit Provider Internal Medicine | DX: N39.0 Urinary tract infection, site not specified (principal) | CPT/HCPCS: 81003 ==

== ENCOUNTER → 2021-06-14 11:07 | Outpatient (BNVA) | payer MEDICARE, BC, SELFPAY | PROVIDERS: PCP Internal Medicine; Visit Provider Anesthesiology Pain Medicine | DX: M47.816 Spondylosis without myelopathy or radiculopathy, lumbar region (principal); M51.36 Other intervertebral disc degeneration, lumbar region; Z79.891 Long term (current) use of opiate analgesic | CPT/HCPCS: 99214 ==

== ENCOUNTER → 2021-08-15 15:30 | Outpatient (BNVA) | payer MEDICARE, BC, SELFPAY | PROVIDERS: PCP Internal Medicine; Visit Provider Internal Medicine | DX: N39.0 Urinary tract infection, site not specified (principal) | CPT/HCPCS: 81003; 87077; 87086; 87184 ==

== ENCOUNTER 2022-01-18 12:12 | Outpatient (CLI) | payer MEDICARE, BC, SELFPAY ==
--- NOTE | 2022-01-18 12:21 | XR_ITS ---
WS: [id number] Right elbow, 3 views, 01/18/2022 Clinical Data: Injury subluxation Comparison: None. Findings: No fractures or dislocations are seen. The radial head is normal. The soft tissues are unremarkable. XR/XR elbow RT min 3V* [id number] Impression: Negative right elbow.
== END 2022-01-18 12:13 | disposition home or self-care (01) ==
LOC: RAD 12:16
PROVIDERS: PCP Internal Medicine; Visit Provider Internal Medicine
DX: S59.901A Unspecified injury of right elbow, initial encounter (principal); X58.XXXA Exposure to other specified factors, initial encounter
CPT/HCPCS: 73080

== ENCOUNTER 2022-01-20 08:34 | Inpatient (IN) | payer MEDICARE, BC, SELFPAY ==
[2022-01-20] VITALS (8 sets, daily range): BP systolic 124–160; BP diastolic 54–96; PULSE 69–83; RESP 16–23; TEMP 37.2–37.6; O2SAT 91–100
--- NOTE | 2022-01-20 09:17 | XR_ITS ---
WS: [id number] PORTABLE CHEST HISTORY: dyspnea/cough COMPARISON: 09/04/2020 Mild elevation of the RIGHT hemidiaphragm. There is mild prominence of the pulmonary vasculature. No pleural effusion. No pleural effusion or pn eumothorax. Cardiac size: Mildly enlarged cardiac silhouette. Mediastinum/Aorta: Moderate atherosclerosis aorta. Osteopenia. Degenerative changes at the RIGHT humeral head. XR/XR chest 1V portable [id number] IMPRESSION: Very mild pulmonary vascular congestion. No pneumonia.
--- NOTE | 2022-01-20 09:19 | W.ED.COVID ---
HPI - COVID General: Chief Complaint: COVID symptoms Stated Complaint: COVID +/ N/V Time Seen by Provider: 01/20/22 08:37 Source: patient Mode of arrival: EMS Limitations: no limitations Triage information: Has fever, cough or shortness of breath. Exposure to COVID + person last 14 days History of Present Illness: 81-year-old female presents emergency room with complaint of a positive COVID test at home. Symptoms began 5 days ago she has had shortness of breath fever diarrhea nausea with some vomiting. She has been vaccinated previously. She denies dysuria urgency or frequency cough is been nonproductive she has not had any anosmia she is not usually on oxygen presents hypoxic requiring 3 L by nasal cannula. MD complaint: known COVID positive Prior covid testing: yes, results known Prior testing date: 01/20/22 COVID 19 common symptoms: positive fever(s), chills, cough, non-productive cough, dyspnea, fatigue, body aches, headache(s), nasal congestion, nausea and diarrhea; negative productive cough, loss of sense of smell and/or taste, throat pain or vomiting COVID 19 other sytmptoms: positive requiring oxygen; negative chest pain, respiratory distress, cyanosis, lethargy or confusion Onset (ago): day(s) (5) Severity: mild Pertinent comorbid conditions: immunocompromised state Treatment prior to arrival: acetaminophen COVID Results: SARS-CoV-2 RNA (RT-PCR) Not detected (NOT DETECTED) 09/04/20 14:45 09/04/20 Review of Systems Const: Reports: fever(s), chills, body aches and fatigue ENMT: Reports: nasal congestion; Denies: throat pain Card: Denies: chest pain, edema, dyspnea on exertion or orthopnea Resp: Reports: dyspnea and non-productive cough; Denies: productive cough GI: Reports: nausea and diarrhea; Denies: vomiting : Denies: flank pain, difficulty voiding, dysuria, urinary frequency or urinary urgency Skin/Breast: Denies: rash or pruritus Neuro: Reports: headache(s); Denies: confusion PFS ED PFSH: Medical History Abnormal mammogram Dyslipidemia Essential (primary) hypertension GERD (gastroesophageal reflux disease) Hyponatremia PMR (polymyalgia rheumatica) Rheumatoid arthritis TIA (transient ischemic attack) TIA (transient ischemic attack) Toe malalignment UTI (urinary tract infection) Varicose veins of bilateral lower extremities with pain Surgical History H/O varicose vein stripping H/O: hysterectomy Family History Mother CAD (coronary artery disease) Father Parkinsons Social History Smoking and tobacco status: never smoked Second hand smoke exposure: No Alcohol intake: never Lives independently: Yes Housing: House service: No History of recent travel: No Current gender identity: Female Physical Exam Const: GENERAL APPEARANCE: cooperative and comfortable ORIENTATION/CONSCIOUSNESS: Yes awake, Yes oriented to person, Yes oriented to place and Yes oriented to time HENMT: COMMON NORMALS: normocephalic, atraumatic and hearing grossly normal bilaterally HEAD & SCALP: normocephalic and atraumatic Resp: AUSCULTATION: crackles and wheezes Cardio: COMMON NORMALS: regular rate, regular rhythm and No murmurs present (Cardio) RATE: regular rate RHYTHM: regular rhythm GI: COMMON NORMALS: Soft to palpation and No hepatosplenomegaly present AUSCULTATION: Yes normoactive bowel sounds PALPATION: Yes Soft to palpation, No Tenderness to palpation present (GI), No Guarding due to palpation present (GI) and Yes No hepatosplenomegaly present Extremity: COMMON NORMALS: normal to inspection, capillary refill normal, no clubbing, cyanosis or edema, no calf tenderness and no pedal edema Neuro: SENSORIUM/ORIENTATION: Yes oriented to person, Yes oriented to place and Yes oriented to time Skin: COMMON NORMALS: no rashes or lesions noted GENERAL SKIN EXAM: no rashes or lesions noted Course Vital Signs: Vital signs: Vital Signs Pulse Rate 69 01/20/22 08:45 Respiratory Rate 17 01/20/22 08:45 Blood Pressure 160/62 01/20/22 08:45 Pulse Oximetry 91 01/20/22 09:47 MDM - COVID Medical Decision Making Patient is hyponatremic and requiring oxygen. With her nausea vomiting I do not think she will be able to manage this as an outpatient and requires inpatient at least on observation for IV fluids and monitoring discussed with hospitalist orders written Medical Records I reviewed the patient's medical records. Lab Data I reviewed the patient's lab results. : 01/20/22 09:45 01/20/22 09:45 Radiology Impressions Chest X-Ray 01/20/22 09:17 IMPRESSION: Very mild pulmonary vascular congestion. No pneumonia. Chest CTA 01/20/22 11:22 IMPRESSION: 1. Suboptimal opacification of the pulmonary arteries due to combination of factors as above. 2. No large central pulmonary embolism. 3. Highly suspicious for bilateral lower lobe pulmonary emboli. 4. Very small bilateral lower lobe nodules and groundglass opacifications. Recommend follow-up chest CT in 3-4 months after patient's acute illness resolves. Laboratory Results WBC 9.5 10^3/uL (4.0-10.0) 01/20/22 09:45 RBC 3.96 10^6/uL (4.1-5.3) L 01/20/22 09:45 Hgb 11.5 g/dL (11.5-15.3) 01/20/22 09:45 Hct 34.6 % (37.0-47.0) L 01/20/22 09:45 MCV 87.4 fl (81-99) 01/20/22 09:45 MCH 29.0 pg (28.0-34.0) 01/20/22 09:45 MCHC 33.2 g/dL (30.0-36.0) 01/20/22 09:45 RDW 13.9 % (12.1-15.1) 01/20/22 09:45 Plt Count 285 10^3/cmm (130-400) 01/20/22 09:45 MPV 8.6 fL (7.4-10.4) 01/20/22 09:45 Neut % (Auto) 61.9 % 01/20/22 09:45 Lymph % (Auto) 16.5 % 01/20/22 09:45 [place] % (Auto) 15.3 % 01/20/22 09:45 Eos % (Auto) 1.7 % 01/20/22 09:45 Baso % (Auto) 0.6 % 01/20/22 09:45 Neut # (Auto) 5.86 10^3/uL (1.8-7.7) 01/20/22 09:45 Lymph # (Auto) 1.6 10^3/uL (0.8-4.8) 01/20/22 09:45 [place] # (Auto) 1.5 10^3/uL (0.2-0.9) H 01/20/22 09:45 Eos # (Auto) 0.2 10^3/uL (0.0-0.8) 01/20/22 09:45 Baso # (Auto) 0.1 10^3/uL (0.0-0.1) 01/20/22 09:45 Nucleated RBC % (auto) 0 % 01/20/22 09:45 Nucleated RBCs # 0.0 /100WBC 01/20/22 09:45 Sodium 123 mmol/L (136-145) L 01/20/22 09:45 Potassium 3.7 mmol/L (3.5-5.1) 01/20/22 09:45 Chloride 90 mmol/L (98-107) L 01/20/22 09:45 Carbon Dioxide 22 mmol/L (22-29) 01/20/22 09:45 Anion Gap 14.7 (5-19) 01/20/22 09:45 BUN 7 mg/dL (8-23) L 01/20/22 09:45 Creatinine 0.7 mg/dL (0.5-0.9) 01/20/22 09:45 GFR Calculation Not Reportable 01/20/22 09:45 Glucose 75 mg/dL (65-115) 01/20/22 09:45 Calculated Osmolality 253 mOsm/kg (285-295) L 01/20/22 09:45 Calcium 8.7 mg/dL (8.5-10.5) 01/20/22 09:45 SARS-CoV-2 RNA (RT-PCR) Not detected (NOT DETECTED) 09/04/20 14:45 09/04/20 Discharge Plan Discharge Patient Disposition: Home Admit Provider: Justin Reyes Clinical Impression: COVID-19, Hyponatremia, Acute respiratory failure with hypoxia Condition: Stable Coding Level of Care Code ED [employer] Labourer for Chg Fwd Exam Detailed
[2022-01-20 09:51] LABS: Basophils # 0.1 10^3/uL (0.0-0.1); Basophils % 0.6 %; Eosinophils # 0.2 10^3/uL (0.0-0.8); Eosinophils % 1.7 %; Hematocrit 34.6 % (37.0-47.0); Hemoglobin 11.5 g/dL (11.5-15.3); Lymphocytes # 1.6 10^3/uL (0.8-4.8); Lymphocytes % 16.5 %; Mean Corpuscular HGB Conc 33.2 g/dL (30.0-36.0); Mean Corpuscular Volume 87.4 fl (81-99); Mean Platelet Volume 8.6 fL (7.4-10.4); Monocytes # 1.5 10^3/uL (0.2-0.9); Monocytes % 15.3 %; Neutrophils # 5.86 10^3/uL (1.8-7.7); Neutrophils % 61.9 %; Nucleated Red Blood Cells % 0 %; Platelet Count 285 10^3/cmm (130-400); Red Blood Count 3.96 10^6/uL (4.1-5.3); Red Cell Distribution Width 13.9 % (12.1-15.1); White Blood Count 9.5 10^3/uL (4.0-10.0)
[2022-01-20 10:07] LABS: Anion Gap 14.7 (5-19); Blood Urea Nitrogen 7 mg/dL (8-23); Calcium 8.7 mg/dL (8.5-10.5); Carbon Dioxide 22 mmol/L (22-29); Chloride 90 mmol/L (98-107); Glucose 75 mg/dL (65-115); Osmolality Calculated 253 mOsm/kg (285-295); Potassium 3.7 mmol/L (3.5-5.1); Sodium 123 mmol/L (136-145)
--- NOTE | 2022-01-20 11:22 | CT_ITS ---
WS: [id number] CT CHEST ANGIOGRAPHY WITH REFORMATS HISTORY: hypoxia/ covid TECHNIQUE: Contiguous axial images are obtained through the chest during arterial injection of intrav enous contrast. Images are reconstructed to evaluate the pulmonary arteries. MIP imaging also reviewe d. All CT scans at [facility] use at least one of these dose optimization techniques: automat ed exposure control; mA and/or kV adjustment per patient size (includes targeted exams where dose is matched to clinical indication); or iterative reconstruction. CONTRAST: Visipaque 320; 67 mL IV. DLP: 521.33 mGy.cm COMPARISON: None available. Suboptimal opacification of the pulmonary arteries. Poor bolus and contrast injection. There is signi ficant artifact throughout the chest. Patient's body habitus is also contributing to the amount of ar tifact. Central pulmonary arteries demonstrate no pulmonary embolism. Beginning in the lobar branches the opacification is not optimal. There are several filling defects especially within the lower lobe pulmonary artery is highly suspicious for pulmonary emboli. Normal size aorta with mild atherosclero sis. Normal size pulmonary artery. No RIGHT heart strain. No pericardial or pleural effusions. Study is limited by motion artifact. There are bilateral subcentimeter pulmonary nodules in the lower lung carl measuring 3 to 4 mm. Mild haziness and groundglass attenuation. No adenopathy. 10 mm RIGHT thyroid nodule. Atherosclerosis splenic artery and suprarenal aorta. CT/CT angio chest PE protcl [id number] IMPRESSION: 1. Suboptimal opacification of the pulmonary arteries due to combination of fa ctors as above. 2. No large central pulmonary embolism. 3. Highly suspicious for bilateral lower lobe pulmonary emboli. 4. Very small bilateral lower lobe nodules and groundglass opacifications. [facility] in 3-4 months after patient's acute illness resolves.
--- NOTE | 2022-01-20 11:58 | PM.HP ---
Providers/Chief Complaint Primary Care Provider: Leonid Bruce MD Chief Complaint: COVID +/ N/V History of Present Illness Lorena Boyd is a 81 year old female with a past medical history of transient ischemic attack, hypertension, hyperlipidemia, anxiety, varicose veins, lumbar disc disease, no history of CAD, no history of COPD, no history of diabetes, no history of liver disease, no history of renal failure, who presents to [facility] due to a few day history of nausea, vomiting, sinus congestion, fatigue, malaise, shortness of breath. Patient tells me that a few days ago her [id number] tested positive for COVID. Since then she has been developing fatigue, malaise, fevers, shortness of breath, productive cough, sinus congestion. Apparently there is an outbreak of COVID in her mosque and there [place]. She says for the last 24 hours she is running high-grade fevers, severe fatigue, malaise, muscle aches and pains, and now this morning she started develop severe nausea and vomiting. She is not able to keep down any breakfast this morning, not able to keep down liquids, feeling a bit lightheaded so her daughter called EMS and brought her to the emergency room. He tested positive for COVID today at at home test. She has been vaccinated for COVID, she is received all 4 COVID vaccines. Review of Systems Const: Reports: fever(s), chills, body aches, change in appetite, fatigue and malaise Eyes: Denies: change in vision ENMT: Reports: throat pain Card: Denies: chest pain or palpitations Resp: Reports: dyspnea and non-productive cough GI: Reports: nausea and vomiting; Denies: abdominal pain : Denies: difficulty voiding or dysuria Musc: Reports: back pain Skin/Breast: Denies: rash Neuro: Denies: headache(s) Medications/Allergies Home Medications Medication Instructions Recorded Confirmed Last Taken Type acetaminophen 500 mg tablet 1,000 mg PO QAM 09/04/20 01/20/22 Unknown History (Tylenol Extra Strength) clotrimazole 10 mg kristi 10 mg PO QID PRN 09/04/20 01/20/22 Unknown History tramadol 50 mg tablet (Ultram) 50 mg PO Q4H PRN #120 tab 06/20/21 01/20/22 Unknown Rx pantoprazole 40 mg tablet,delayed 40 mg PO BID #60 tab 11/23/21 01/20/22 Unknown Rx release trazodone 50 mg tablet 50 mg PO BEDTIME #30 tab 01/05/22 01/20/22 Unknown Rx doxycycline monohydrate 100 mg 100 mg PO BID #14 cap 01/18/22 01/20/22 01/19/22 Rx capsule AM DOSE ONLY sennosides 8.6 mg-docusate sodium 2 tab-cap PO BEDTIME tab 01/18/22 01/20/22 Unknown History 50 mg tablet (Senna Plus) Prevagen Regular Strength 1 tab PO QAM 01/20/22 01/20/22 Unknown History albuterol sulfate 90 mcg/actuation 2 puff INHALATION Q4H PRN 01/20/22 01/20/22 Unknown History aerosol inhaler alprazolam 0.25 mg tablet (Xanax) 0.25 mg PO . DIRECTED 01/20/22 01/20/22 Unknown History atorvastatin 40 mg tablet (Lipitor) 40 mg PO BEDTIME 01/20/22 01/20/22 Unknown History cetirizine 10 mg tablet 10 mg PO BEDTIME 01/20/22 01/20/22 Unknown History clopidogrel 75 mg tablet 75 mg PO QAM 01/20/22 01/20/22 Unknown History diclofenac sodium 1 % topical gel 4 g TOPICAL QID PRN 01/20/22 01/20/22 Unknown History (Voltaren Arthritis Pain) ferrous gluconate 324 mg (38 mg 324 mg PO QAM 01/20/22 01/20/22 Unknown History iron) tablet ibuprofen 200 mg tablet 400 mg PO DAILY@14 01/20/22 01/20/22 Unknown History lisinopril 5 mg tablet 5 mg PO BEDTIME 01/20/22 01/20/22 Unknown History melatonin 10 mg tablet 10 mg PO BEDTIME 01/20/22 01/20/22 Unknown History metoprolol succinate 25 mg 25 mg PO QAM 01/20/22 01/20/22 Unknown History tablet,extended release 24 hr prednisone 10 mg tablet 10 mg PO QAM 01/20/22 01/20/22 Unknown History spironolactone 50 mg tablet 50 mg PO QAM 01/20/22 01/20/22 Unknown History (Aldactone) Allergies Allergy/AdvReac Type Severity Reaction Status Date / Time Sulfa (Sulfonamide Allergy Severe facial Verified 01/20/22 10:59 Antibiotics) swelling adhesive tape Allergy tears skin Verified 01/20/22 10:59 amantadine Allergy doesn't Verified 01/20/22 10:59 remember - thinks it shut her kidney's down indomethacin Allergy mental Verified 01/20/22 10:59 anxiety and hallucinations metronidazole [From Flagyl] Allergy vomiting Verified 01/20/22 10:59 Hopdqfa-WFI-BqR Reductase AdvReac muscle Verified 01/20/22 10:59 Inhibitor aches [Vvftefx-Dmw-Neb Reductase Inhibitor] PFSH Acute PFSH: Medical History Abnormal mammogram Dyslipidemia Essential (primary) hypertension GERD (gastroesophageal reflux disease) Hyponatremia PMR (polymyalgia rheumatica) Rheumatoid arthritis TIA (transient ischemic attack) TIA (transient ischemic attack) Toe malalignment UTI (urinary tract infection) Varicose veins of bilateral lower extremities with pain Surgical History H/O varicose vein stripping H/O: hysterectomy Family History Mother CAD (coronary artery disease) Father Parkinsons Social History Smoking and tobacco status: never smoked Second hand smoke exposure: No Alcohol intake: never Lives independently: Yes Housing: House service: No History of recent travel: No Current gender identity: Female Vitals/I&O/Wt Last Vital Signs Pulse 69 01/20/22 08:45 Resp 17 01/20/22 08:45 BP 160/62 01/20/22 08:45 Pulse Ox 91 01/20/22 09:47 Physical Exam Const: COMMON NORMALS: no acute distress and patient oriented x3 HENMT: COMMON NORMALS: normocephalic HEAD & SCALP: normocephalic Eye: COMMON NORMALS: Equal, round and reactive pupils present and EOMs intact bilaterally Neck/C-Spine: COMMON NORMALS: no JVD Lymph: LYMPHATIC: no lymphadenopathy noted Resp: COMMON NORMALS: normal respiratory effort, No retractions, No use of accessory muscles and clear to auscultation bilaterally AUSCULTATION: clear to auscultation bilaterally Cardio: COMMON NORMALS: no JVD, regular rate, regular rhythm, S1 normal heart sound present and S2 normal heart sound present RATE: regular rate RHYTHM: regular rhythm HEART SOUNDS: S1 normal heart sound present and S2 normal heart sound present GI: COMMON NORMALS: Normal to inspection, nondistended, normoactive bowel sounds present, Soft to palpation, non-tender, No hepatosplenomegaly present, no masses and no bruits PALPATION: Yes Soft to palpation and Yes No hepatosplenomegaly present Extremity: COMMON NORMALS: capillary refill normal, no clubbing, cyanosis or edema, no calf tenderness and no pedal edema Neuro: COMMON NORMALS: patient oriented x3 Psych: COMMON NORMALS: mental status grossly normal Data : 01/20/22 09:45 01/20/22 09:45 A&P Assessment and plan (1) Pneumonia due to COVID-19 virus: Status: Acute (2) Dehydration: Status: Acute (3) Hyponatremia: Status: Acute (4) Hypoxia: Status: Acute Plan Pneumonia secondary COVID-19 -Hypoxia requiring up to 3 L, upon examination she is on 1 L -Chest x-ray no focal infiltrates -CT angiogram pending -Pro-Robi, CRP, blood cultures, sputum cultures, repeat COVID test, flu test -Start Decadron 6 mg IV push daily -We will hold off on remdesivir -Full code -Lovenox for DVT prophylaxis Hyponatremia, dehydration, start IV fluids Attestations Medical Necessity Statement*: Patient requires hospitalization for COVID-19 pneumonia, dehydration, hyponatremia Coding Level of Care Code Acute Vice President Of Brand Management for [facility] Diagnoses Pneumonia due to COVID-19 virus U07.1; J12.82 Dehydration E86.0 Hyponatremia E87.1 Hypoxia R09.02
[2022-01-20] MEDS: iodixanol 320 mg/mL 100mL Btl IV (12:24)
--- NOTE | 2022-01-20 12:45 | PC.NURSE ---
ATTEMPTED REPORT NURSE UNAVAILABLE.
[2022-01-20 13:15] LABS: Troponin(5th) Baseline 22 ng/L (0-10)
[2022-01-20 13:30] LABS: NT Pro B Type Natriuretic Pept 315 pg/mL (0-450); Procalcitonin 0.05 ng/mL (0-0.5)
[2022-01-20 13:41] LABS: C Reactive Protein 5.7 mg/L (0.0-4.9); Ferritin 91 ng/mL (15-150); Magnesium 1.7 mg/dL (1.7-2.3); Phosphorus 3.6 mg/dL (2.5-4.5)
--- NOTE | 2022-01-20 13:49 | ECG_ITS ---
[facility] Test Date: 2022-01-20 Pat Name: Lorena Boyd Department: Room: 275 Gender: Female Care Process Manager: : 1940 Requested By: Justin Reyes Order Number: [id number] Wilson MD: Mia Rivera M.D. Measurements Intervals [place] Rate: 70 P: 52 [place]: 225 QRS: -15 QRSD: 93 T: 52 QT: 388 QTc: 421 Interpretive Statements SINUS RHYTHM WITH FIRST DEGREE AV BLOCK POSSIBLE RIGHT VENTRICULAR CONDUCTION DELAY [RSR (QR) IN V1/V2] MINIMAL VOLTAGE CRITERIA FOR LVH, CONSIDER NORMAL VARIANT [MEETS CRITERIA IN ONE OF: R(aVL), S(V1), R(V5), R(V5/V6)+S(V1)] Compared to ECG 09/04/2020 12:08:43 ST (T wave) deviation no longer present Electronically Signed On 01-20-2022 16:22:44 CDT by Mia Rivera M.D. [id number]
[2022-01-20 13:59] LABS: D Dimer 0.77 ug/mIFEU (0-0.59)
[2022-01-20 14:05] LABS: Lactic Sepsis W/Reflex 1.1 mmol/L (0.5-2.2); Troponin 5 2HR 24.15 ng/L (0-10); Troponin 5 2HR Delta 2.15 ABS# (0-10)
[2022-01-20 14:42] LABS: Thyroid Stimulating Hormone 0.54 uIU/mL (0.27-4.20)
[2022-01-20] MEDS: pantoprazole 40 mg SDV IVP (16:48)
[2022-01-20] MEDS: sodium chloride 0.9% 1,000 ML 125 ML IV (16:49)
[2022-01-20] MEDS: dexamethasone 10 mg/mL INJ 6 MG IVP (16:49)
[2022-01-20 16:50] LABS: Troponin 5 6HR 22.53 ng/L (0-10)
[2022-01-20 16:57] LABS: Troponin 5 6HR Delta 0.53 ng/L (0-12)
[2022-01-20] MEDS: heparin 5,000 unit/mL INJ 1 mL IV (17:15)
[2022-01-20] MEDS: ascorbic acid 500 mg Tablet PO (17:16)
[2022-01-20] MEDS: heparin drip 25,000 UNIT/500 ML PREMIX 26 UNIT IV (17:16)
--- NOTE | 2022-01-20 17:49 | ECG_ITS ---
[facility] Test Date: 2022-01-20 Pat Name: Lorena Boyd Department: Room: 275 Gender: Female Para Machine Operator: : 1940 Requested By: Justin Reyes Order Number: [id number] Wilson MD: Mia Rivera M.D. Measurements Intervals [place] Rate: 75 P: 33 DC: 198 QRS: -17 QRSD: 90 T: 48 QT: 379 QTc: 423 Interpretive Statements SINUS RHYTHM WITH OCCASIONAL SUPRAVENTRICULAR PREMATURE COMPLEXES POSSIBLE RIGHT VENTRICULAR CONDUCTION DELAY [RSR (QR) IN V1/V2] VOLTAGE CRITERIA FOR LVH [MEETS CRITERIA IN ONE OF: R(aVL), S(V1), R(V5), R(V5/V6)+S(V1)] Compared to ECG 01/20/2022 16:12:19 First degree AV block no longer present Electronically Signed On 01-21-2022 10:21:08 CDT by Mia Rivera M.D. [id number]
[2022-01-20 18:20] LABS: Influenza A by IFA Negative (Negative); Influenza B by IFA Negative (Negative)
[2022-01-20 19:07] LABS: Adenovirus Not Detected (NOT DETECT); Chlamydia Pneumoniae Not Detected (NOT DETECT); Human Metapneumovirus Not Detected (NOT DETECT); Human Rhinovirus/Enterovirus Not Detected (NOT DETECT); Influenza A Not Detected (NOT DETECT); Influenza A H1 Not Detected (NOT DETECT); Influenza A H1-2009 Not Detected (NOT DETECT); Influenza A H3 Not Detected (NOT DETECT); Influenza B Not Detected (NOT DETECT); Mycoplasma Pneumoniae Not Detected (NOT DETECT); Parainfluenza Virus Type 1 Not Detected (NOT DETECT); Parainfluenza Virus Type 2 Not Detected (NOT DETECT); Parainfluenza Virus Type 3 Not Detected (NOT DETECT); Parainfluenza Virus Type 4 Not Detected (NOT DETECT); Respiratory Syncytial Virus A Not Detected (NOT DETECT); Respiratory Syncytial Virus B Not Detected (NOT DETECT)
[2022-01-20 19:28] LABS: Coronavirus 229E,HKU1,NL63,OC4 Not Detected (NOT DETECT)
[2022-01-20 19:29] LABS: SARS-COV-2 Detected (NOT DETECT)
[2022-01-20] MEDS: trazodone 50 mg Tablet PO (20:42)
[2022-01-20] MEDS: cetirizine 10 mg Tablet PO (20:42)
[2022-01-20] MEDS: atorvastatin 40 mg Tablet PO (20:42)
[2022-01-20] MEDS: sennosides-docusate Tablet 2 TAB PO (20:42)
[2022-01-20] MEDS: acetaminophen 325 mg Tablet 650 MG PO (20:43)
[2022-01-20] MEDS: budesonide 0.5 mg/2 mL Neb INHALATION (20:58)
[2022-01-20 23:44] LABS: Partial Thromboplastin Time 221.9 SECONDS (23.9-36.7)
[2022-01-21] VITALS (9 sets, daily range): BP systolic 142–164; BP diastolic 75–102; PULSE 59–85; RESP 14–18; TEMP 36.3–37.2; O2SAT 93–99
--- NOTE | 2022-01-21 00:10 | PC.NURSE ---
Pt critical PTT of 221.9 called to nurse at 2345. Dr. Peng called. Order was given to DC heparin drip.
[2022-01-21] MEDS: sodium chloride 0.9% 1,000 ML 125 ML IV ×2 (00:34→05:40)
--- NOTE | 2022-01-21 00:42 | USCV_ITS ---
Lorena Boyd Age: 81 Gender: F : 1940 Exam Date: 01/21/2022 00:58 Ordering Phys: Justin Reyes MD Technologist: Jong Rogers [place] [facility] [place]: abnormal lab test / ddimer HISTORY: abnormal lab test / ddimer PROCEDURES: Venous duplex imaging was performed in bilateral lower extremities. The following venous structures were evaluated: common femoral vein, profunda vein, proximal portion of the greater saphenous vein, superficial femoral vein, and the popliteal vein. In addition, the posterior tibial and peroneal trunk were evaluated. Serial compression, augmentation maneuvers, and spectral Doppler flow evaluation were performed. FINDINGS: Normal 2-D Doppler and augmentation and compressibility throughout the lower extremity venous structures. Additional imaging through the proximal calf veins also reveals no thrombus. Limited evaluation of the greater saphenous vein is patent with no thrombus. CONCLUSIONS No DVT bilateral lower extremities. Dr. Maria Eugenia Baker DO (Electronically Signed) Final Date: 23 Jan 2022 08:22 S
--- NOTE | 2022-01-21 00:43 | USCV_ITS ---
Lorena oByd Age: 81 Gender: F : 1940 Exam Date: 01/21/2022 10:20 Ordering Phys: Justin Reyes MD Technologist: Vinay Orellana [place]am [place] [facility] [place]: pe positive covid BP: 135 / 75 HR: 67 Rhythm: Sinus Technical Quality: Adequate MEASUREMENTS (Male / Female) Normal Values 2D ECHO LV Diastolic Diameter PLAX 3.9 cm 4.2 - 5.9 / 3.9 - 5.3 cm LV Systolic Diameter PLAX 2.5 cm IVS Diastolic Thickness 0.9 cm 0.6 - 1.0 / 0.6 - 0.9 cm IVS Systolic Thickness 1.2 cm LVPW Diastolic Thickness 1.1 cm 0.6 - 1.0 / 0.6 - 0.9 cm LVPW Systolic Thickness 1.1 cm LVOT Diameter 2.0 cm LV Ejection Fraction 2D Teich 64.7 % LV Ejection Fraction MOD 2C 29.6 % LV Ejection Fraction 2C AL 32.8 % LA Diameter 3.2 cm Aorta at Sinotubular Diameter 2.4 cm IVC Diameter 1.7 cm M-MODE Aortic Annulus Diameter 2.9 cm LA Ao Ratio MM 1.1 MV E Point Septal Separation 0.9 cm DOPPLER AV Peak Velocity 201.8 cm/s LVOT Peak Velocity 111.0 cm/s AV Area Cont Eq vti 1.7 cm squared AV Area Cont Eq pk 1.8 cm squared MV Area PHT 5.0 cm squared Mitral E to A Ratio 0.9 MV E' Velocity 52.0 cm/s Mitral E to MV E' Ratio 9.7 Mitral E to LV E' Lateral Ratio 8.1 Mitral E to LV E' Septal Ratio 12.1 TR Peak Velocity 312.7 cm/s TR Peak Gradient 39.1 mmHg TV Peak E Velocity 104.0 cm/s Right Atrial Pressure 3.0 mmHg Pulmonary Artery Systolic Pressu 42.1 mmHg PV Peak Velocity 101.0 cm/s FINDINGS Left Ventricle Normal left ventricular size. LV systolic function is normal with EF of 55-60%. No regional wall motion abnormalities. Right Ventricle RV is not well visualized Right Atrium The right atrium is normal in size. Left Atrium The left atrium is normal in size. Mitral Valve Mild mitral annular calcification without significant stenosis or prolapse. There is mild mitral regurgitation. Aortic Valve Aortic valve is thickened. Mild aortic stenosis with mean gradient of 10 mmHg and aortic valve area of 1.47 cm squared. No significant aortic regurgitation. Tricuspid Valve Grossly normal without significant stenosis. Mild tricuspid regurgitation. RVSP is 40-45 mmHg. This is consistent with moderate pulmonary hypertension Pulmonic Valve There is mild pulmonic regurgitation. Pericardium Normal pericardium without effusion. Aorta Normal ascending aorta dimension. IVC CONCLUSIONS Technically limited quality echocardiogram because of poor ultrasonic windows. LV systolic function is normal with EF of 55 to 60% RV is not well visualized Mild mitral annular calcification.There is mild mitral regurgitation. Aortic valve is thickened. Mild aortic stenosis with mean gradient of 10 mmHg and aortic valve area of 1.47 cm squared. Mild tricuspid regurgitation. RVSP is 40-45 mmHg. This is consistent with moderate pulmonary hypertension There is mild pulmonic regurgitation. Compared to prior echocardiogram with 2019, patient now has moderate pulmonary hypertension Nick Livingston MD (Electronically Signed) Final Date: 21 Jan 2022 11:25 S
[2022-01-21] MEDS: clopidogrel 75 mg Tablet PO (05:40)
[2022-01-21] MEDS: metoprolol succinate ER (24 HR) 25 mg Tablet PO (05:40)
[2022-01-21] MEDS: ferrous gluconate 324 mg Tablet PO (05:40)
[2022-01-21 05:56] LABS: Basophils % 0.3 %; Hematocrit 37.4 % (37.0-47.0); Hemoglobin 12.2 g/dL (11.5-15.3); Lymphocytes # 1.3 10^3/uL (0.8-4.8); Lymphocytes % 21.3 %; Mean Corpuscular HGB Conc 32.6 g/dL (30.0-36.0); Mean Corpuscular Volume 88.8 fl (81-99); Mean Platelet Volume 8.4 fL (7.4-10.4); Monocytes # 0.5 10^3/uL (0.2-0.9); Monocytes % 8.1 %; Neutrophils # 4.19 10^3/uL (1.8-7.7); Neutrophils % 67.7 %; Nucleated Red Blood Cells % 0 %; Platelet Count 301 10^3/cmm (130-400); Red Blood Count 4.21 10^6/uL (4.1-5.3); Red Cell Distribution Width 13.9 % (12.1-15.1); White Blood Count 6.2 10^3/uL (4.0-10.0)
[2022-01-21 06:13] LABS: Magnesium 1.8 mg/dL (1.7-2.3)
[2022-01-21 06:20] LABS: Partial Thromboplastin Time 116.2 SECONDS (23.9-36.7)
[2022-01-21 06:33] LABS: Alanine Aminotransferase 14 U/L (0-33); Albumin Level 3.5 g/dL (3.5-5.2); Alkaline Phosphatase 38 IU/L (35-105); Aspartate Amino Transferase 20 U/L (0-32); Blood Urea Nitrogen 7 mg/dL (8-23); Calcium 8.2 mg/dL (8.5-10.5); Carbon Dioxide 23 mmol/L (22-29); Chloride 95 mmol/L (98-107); Globulin 2.1 g/dL (1.3-4.6); Glucose 105 mg/dL (65-115); Osmolality Calculated 266 mOsm/kg (285-295); Sodium 129 mmol/L (136-145); Total Bilirubin 0.4 mg/dL (0.15-1.2); Total Protein 5.6 g/dL (6.6-8.7)
[2022-01-21] MEDS: ascorbic acid 500 mg Tablet PO ×2 (08:14→16:49)
[2022-01-21] MEDS: zinc gluconate 50 mg Tablet PO (08:14)
[2022-01-21] MEDS: cholecalciferol (vitamin D3) 1,000 unit Tablet 1000 UNIT PO (08:14)
[2022-01-21] MEDS: budesonide 0.5 mg/2 mL Neb INHALATION ×2 (09:30→20:10)
--- NOTE | 2022-01-21 12:04 | PM.PN ---
Subjective Subjective: Patient was seen this morning, she tells me that she overall feels better, but continues to have feverish feelings overnight, fatigue, malaise, tiredness she got up to use the bathroom and she felt quite short of breath she tells me, she just does not feel well this morning, continues to have poor appetite, no nausea, no vomiting, no diarrhea, is on a liter, continues to complain of shortness of breath, none at rest, no chest pain Patient's daughter is at bedside, I discussed patient's CT angiogram findings, it was a difficult quality study, however there was no large pulmonary emboli, but it was highly suspicious that she might have a distal pulmonary emboli in the lower lobes, given her oxygen requirements, elevated D-dimer, COVID-19 positivity, hypercoagulability of COVID-19, we have elected to treat her with heparin drip, which she is tolerated, Vitals/I&O/Wt Last Vital Signs Temp 98.1 F 01/21/22 11:59 Pulse 59 L 01/21/22 11:59 Resp 16 01/21/22 08:00 BP 161/76 01/21/22 11:59 Pulse Ox 98 01/21/22 11:59 01/20/22 01/21/22 01/21/22 22:59 06:59 14:59 Intake Total 120 / 120 1781.317 / 1901.317 Balance 120 / 120 1781.317 / 1901.317 Weight last 48 hrs Weight 91.626 kg Physical Exam Const: COMMON NORMALS: no acute distress and patient oriented x3 Resp: COMMON NORMALS: normal respiratory effort, No retractions and No use of accessory muscles AUSCULTATION: diminished lung sounds diffuse Cardio: COMMON NORMALS: regular rate, regular rhythm, S1 normal heart sound present and S2 normal heart sound present RATE: regular rate RHYTHM: regular rhythm HEART SOUNDS: S1 normal heart sound present and S2 normal heart sound present GI: COMMON NORMALS: Normal to inspection, nondistended, normoactive bowel sounds present, Soft to palpation and non-tender PALPATION: Yes Soft to palpation Extremity: COMMON NORMALS: no pedal edema Neuro: COMMON NORMALS: patient oriented x3 Psych: COMMON NORMALS: mental status grossly normal Data : 01/21/22 05:50 01/21/22 05:50 Micro: Microbiology 01/20/22 13:07 Blood Culture - Preliminary Blood SPECIMEN COLLECTED 01/20/22 13:07 Blood Culture - Preliminary Blood SPECIMEN COLLECTED A&P Assessment and plan (1) Pulmonary embolism: Status: Acute (2) Pneumonia due to COVID-19 virus: Status: Acute (3) Dehydration: Status: Acute (4) Hyponatremia: Status: Acute (5) Hypoxia: Status: Acute Plan Pneumonia secondary COVID-19, possible distal pulmonary emboli bilateral lower lobes -Hypoxia requiring up to 3 L, upon examination she is on 1 L -Chest x-ray no focal infiltrates -CT angiogram 1.? Suboptimal opacification of the pulmonary arteries due to combination of factors as above. 2.? No large central pulmonary embolism. 3.? Highly suspicious for bilateral lower lobe pulmonary emboli. 4.? Very small bilateral lower lobe nodules and groundglass opacifications. Recommend follow-up chest CT in 3-4 months after patient's acute illness resolves. -Blood cultures, sputum cultures -On Decadron 6 mg IV push daily -We will hold off on remdesivir -On heparin drip, PTT is are elevated, switch to Eliquis, monitor hemoglobin -PT OT -Incentive spirometer, flutter valve -Full code -Eliquis for DVT prophylaxis Hyponatremia, 129, improving dehydration, decrease fluids to 75 cc Deconditioning, weakness, fatigue, PT OT, incentive spirometer, flutter valve, liberalize diet to regular diet Attestations Medical Necessity Statement*: Patient requires hospitalization due to COVID-19 pneumonia Coding Level of Care Code Acute Financial Institution Treasurer for [facility] Diagnoses Pulmonary embolism I26.99 Pneumonia due to COVID-19 virus U07.1; J12.82 Dehydration E86.0 Hyponatremia E87.1 Hypoxia R09.02
[2022-01-21] MEDS: apixaban 5 mg Tablet 10 MG PO ×2 (12:24→22:59)
[2022-01-21] MEDS: pantoprazole 40 mg SDV IVP (15:12)
[2022-01-21] MEDS: dexamethasone 10 mg/mL INJ 6 MG IVP (15:13)
[2022-01-21] MEDS: sodium chloride 0.9% 1,000 ML 75 ML IV (16:44)
[2022-01-21] MEDS: ipratropium-albuterol 3 mL Neb INHALATION (20:10)
[2022-01-21] MEDS: trazodone 50 mg Tablet PO (20:48)
[2022-01-21] MEDS: sennosides-docusate Tablet 2 TAB PO (20:48)
[2022-01-21] MEDS: cetirizine 10 mg Tablet PO (20:48)
[2022-01-21] MEDS: atorvastatin 40 mg Tablet PO (20:48)
--- NOTE | 2022-01-21 21:03 | PC.NURSE ---
Patient voiced concern about her right arm being bruised, states that it got worse after the day hospitalist doctor seen her today. Dr Peng notified at this time regarding bruise. Continue to monitor and if becomes worse notify him.
[2022-01-21] MEDS: acetaminophen 325 mg Tablet 650 MG PO (21:56)
[2022-01-21] MEDS: ALPRAZolam 0.5 mg Tablet 0.25 MG PO (22:45)
[2022-01-22] VITALS (9 sets, daily range): BP systolic 140–174; BP diastolic 70–95; PULSE 61–71; RESP 16–24; TEMP 36.4–37.2; O2SAT 95–98
[2022-01-22 03:31] LABS: Basophils % 0.4 %; Eosinophils # 0.1 10^3/uL (0.0-0.8); Eosinophils % 0.9 %; Hematocrit 36.6 % (37.0-47.0); Hemoglobin 11.2 g/dL (11.5-15.3); Lymphocytes # 2.4 10^3/uL (0.8-4.8); Lymphocytes % 43.1 %; Mean Corpuscular HGB Conc 30.6 g/dL (30.0-36.0); Mean Corpuscular Hemoglobin 28.7 pg (28.0-34.0); Mean Corpuscular Volume 93.8 fl (81-99); Mean Platelet Volume 8.6 fL (7.4-10.4); Monocytes # 0.8 10^3/uL (0.2-0.9); Neutrophils # 2.28 10^3/uL (1.8-7.7); Neutrophils % 40.4 %; Nucleated Red Blood Cells % 0 %; Platelet Count 295 10^3/cmm (130-400); White Blood Count 5.6 10^3/uL (4.0-10.0)
[2022-01-22 03:56] LABS: Alanine Aminotransferase 15 U/L (0-33); Albumin Level 3.1 g/dL (3.5-5.2); Alkaline Phosphatase 35 IU/L (35-105); Anion Gap 13.5 (5-19); Aspartate Amino Transferase 20 U/L (0-32); Blood Urea Nitrogen 7 mg/dL (8-23); Calcium 7.9 mg/dL (8.5-10.5); Carbon Dioxide 22 mmol/L (22-29); Chloride 98 mmol/L (98-107); Globulin 1.8 g/dL (1.3-4.6); Glucose 95 mg/dL (65-115); Magnesium 1.7 mg/dL (1.7-2.3); Osmolality Calculated 268 mOsm/kg (285-295); Phosphorus 3.3 mg/dL (2.5-4.5); Potassium 3.5 mmol/L (3.5-5.1); Sodium 130 mmol/L (136-145); Total Bilirubin 0.3 mg/dL (0.15-1.2); Total Protein 4.9 g/dL (6.6-8.7)
[2022-01-22] MEDS: clopidogrel 75 mg Tablet PO (06:04)
[2022-01-22] MEDS: ferrous gluconate 324 mg Tablet PO (06:04)
[2022-01-22] MEDS: metoprolol succinate ER (24 HR) 25 mg Tablet PO (06:04)
[2022-01-22] MEDS: sodium chloride 0.9% 1,000 ML 75 ML IV (06:05)
[2022-01-22] MEDS: budesonide 0.5 mg/2 mL Neb INHALATION ×2 (08:12→20:44)
[2022-01-22] MEDS: ipratropium-albuterol 3 mL Neb INHALATION (08:12)
[2022-01-22] MEDS: zinc gluconate 50 mg Tablet PO (08:27)
[2022-01-22] MEDS: cholecalciferol (vitamin D3) 1,000 unit Tablet 1000 UNIT PO (08:27)
[2022-01-22] MEDS: ascorbic acid 500 mg Tablet PO ×2 (08:27→18:22)
[2022-01-22] MEDS: apixaban 5 mg Tablet 10 MG PO ×2 (11:44→23:56)
--- NOTE | 2022-01-22 13:38 | P.PN_ITS ---
Subjective Subjective: Patient was seen this morning, she continues to complain of weakness, fatigue tiredness, shortness of breath, is on room air, afebrile Vitals/I&O/Wt Last Vital Signs Temp 97.5 F L 01/22/22 13:06 Pulse 62 01/22/22 13:06 Resp 18 01/22/22 13:06 BP 166/91 01/22/22 13:06 Pulse Ox 98 01/22/22 13:06 01/21/22 01/22/22 01/22/22 22:59 06:59 14:59 Intake Total 240 / 1480 1100 / 2580 1660 / 1660 Balance 240 / 1480 1100 / 2580 1660 / 1660 Weight last 48 hrs Weight 91.626 kg Physical Exam Const: COMMON NORMALS: no acute distress and patient oriented x3 Resp: COMMON NORMALS: normal respiratory effort, No retractions, No use of accessory muscles and clear to auscultation bilaterally AUSCULTATION: clear to auscultation bilaterally Cardio: COMMON NORMALS: regular rate, regular rhythm, S1 normal heart sound present and S2 normal heart sound present RATE: regular rate RHYTHM: regular rhythm HEART SOUNDS: S1 normal heart sound present and S2 normal heart sound present GI: COMMON NORMALS: Normal to inspection, nondistended, normoactive bowel sounds present, Soft to palpation and non-tender PALPATION: Yes Soft to palpation Extremity: COMMON NORMALS: no pedal edema Neuro: COMMON NORMALS: patient oriented x3 Psych: COMMON NORMALS: mental status grossly normal Data : 01/22/22 02:49 01/22/22 02:49 Micro: Microbiology 01/20/22 13:07 Blood Culture - Preliminary Blood NEGATIVE TO DATE 01/20/22 13:07 Blood Culture - Preliminary Blood NEGATIVE TO DATE A&P Assessment and plan (1) Pulmonary embolism: Status: Acute (2) Pneumonia due to COVID-19 virus: Status: Acute (3) Dehydration: Status: Acute (4) Hyponatremia: Status: Acute (5) Hypoxia: Status: Acute Plan Pneumonia secondary COVID-19, possible distal pulmonary emboli bilateral lower lobes -Hypoxia requiring up to 3 L, upon examination she is on 1 L -Chest x-ray no focal infiltrates -CT angiogram 1.? Suboptimal opacification of the pulmonary arteries due to combination of factors as above. 2.? No large central pulmonary embolism. 3.? Highly suspicious for bilateral lower lobe pulmonary emboli. 4.? Very small bilateral lower lobe nodules and groundglass opacifications. Recommend follow-up chest CT in 3-4 months after patient's acute illness resolves. -Blood cultures, sputum cultures -On Decadron 6 mg IV push daily -We will hold off on remdesivir -Currently on Eliquis, monitor hemoglobin -PT OT -Incentive spirometer, flutter valve -Full code -Eliquis for DVT prophylaxis Hyponatremia, 130, improving dehydration, stop fluids, encourage p.o. intake, PT OT cc Deconditioning, weakness, fatigue, PT OT, incentive spirometer, flutter valve, liberalize diet to regular diet Attestations Medical Necessity Statement*: Patient requires hospitalization for pneumonia secondary COVID-19, pulmonary embolism, deconditioning, hyponatremia Coding Level of Care Code Acute [employer]el[employer] Repairer for [facility] Diagnoses Pulmonary embolism I26.99 Pneumonia due to COVID-19 virus U07.1; J12.82 Dehydration E86.0 Hyponatremia E87.1 Hypoxia R09.02
[2022-01-22] MEDS: spironolactone 25 mg Tablet 50 MG PO (14:20)
[2022-01-22] MEDS: dexamethasone 10 mg/mL INJ 6 MG IVP (14:20)
[2022-01-22] MEDS: pantoprazole 40 mg SDV IVP (14:20)
[2022-01-22] MEDS: cetirizine 10 mg Tablet PO (21:01)
[2022-01-22] MEDS: atorvastatin 40 mg Tablet PO (21:01)
[2022-01-22] MEDS: sennosides-docusate Tablet 2 TAB PO (21:01)
[2022-01-22] MEDS: trazodone 50 mg Tablet PO (21:01)
[2022-01-22] MEDS: lisinopril 5 mg Tablet PO (21:01)
[2022-01-22] MEDS: ALPRAZolam 0.5 mg Tablet 0.25 MG PO (21:08)
[2022-01-22] MEDS: acetaminophen 325 mg Tablet 650 MG PO (21:08)
[2022-01-23] VITALS: BP 158/79; PULSE 70; RESP 16; TEMP 36.8; O2SAT 93
[2022-01-23 04:00] VITALS: BP 183/85; PULSE 63; RESP 18; TEMP 36.8; O2SAT 98
[2022-01-23] MEDS: clopidogrel 75 mg Tablet PO (05:33)
[2022-01-23] MEDS: ferrous gluconate 324 mg Tablet PO (05:33)
[2022-01-23] MEDS: metoprolol succinate ER (24 HR) 25 mg Tablet PO (05:33)
[2022-01-23 05:38] LABS: Basophils % 0.6 %; Eosinophils # 0.2 10^3/uL (0.0-0.8); Hematocrit 40.1 % (37.0-47.0); Hemoglobin 12.6 g/dL (11.5-15.3); Lymphocytes # 2.8 10^3/uL (0.8-4.8); Lymphocytes % 43.8 %; Mean Corpuscular HGB Conc 31.4 g/dL (30.0-36.0); Mean Corpuscular Hemoglobin 29.1 pg (28.0-34.0); Mean Corpuscular Volume 92.6 fl (81-99); Mean Platelet Volume 8.4 fL (7.4-10.4); Monocytes # 0.8 10^3/uL (0.2-0.9); Monocytes % 13.1 %; Neutrophils # 2.46 10^3/uL (1.8-7.7); Neutrophils % 38.4 %; Nucleated Red Blood Cells % 0 %; Platelet Count 314 10^3/cmm (130-400); Red Blood Count 4.33 10^6/uL (4.1-5.3); Red Cell Distribution Width 13.9 % (12.1-15.1); White Blood Count 6.4 10^3/uL (4.0-10.0)
[2022-01-23 05:59] LABS: Alanine Aminotransferase 15 U/L (0-33); Albumin Level 3.5 g/dL (3.5-5.2); Alkaline Phosphatase 38 IU/L (35-105); Anion Gap 12.6 (5-19); Aspartate Amino Transferase 25 U/L (0-32); Blood Urea Nitrogen 4 mg/dL (8-23); Calcium 8.6 mg/dL (8.5-10.5); Carbon Dioxide 25 mmol/L (22-29); Chloride 96 mmol/L (98-107); Globulin 2.1 g/dL (1.3-4.6); Glucose 94 mg/dL (65-115); Magnesium 1.6 mg/dL (1.7-2.3); Osmolality Calculated 267 mOsm/kg (285-295); Phosphorus 3.4 mg/dL (2.5-4.5); Potassium 3.6 mmol/L (3.5-5.1); Sodium 130 mmol/L (136-145); Total Bilirubin 0.4 mg/dL (0.15-1.2); Total Protein 5.6 g/dL (6.6-8.7)
[2022-01-23 07:39] VITALS: BP 174/79; PULSE 64; RESP 16; TEMP 36.7; O2SAT 95
[2022-01-23 08:00] VITALS: PULSE 72; RESP 17; O2SAT 96
[2022-01-23] MEDS: budesonide 0.5 mg/2 mL Neb INHALATION (08:03)
[2022-01-23] MEDS: ipratropium-albuterol 3 mL Neb INHALATION (08:03)
[2022-01-23] MEDS: zinc gluconate 50 mg Tablet PO (08:25)
[2022-01-23] MEDS: ascorbic acid 500 mg Tablet PO (08:26)
[2022-01-23] MEDS: cholecalciferol (vitamin D3) 1,000 unit Tablet 1000 UNIT PO (08:26)
[2022-01-23 11:03] VITALS: O2SAT 96; O2SAT 98
[2022-01-23 11:23] VITALS: BP 153/80; PULSE 65; RESP 16; TEMP 36.7; O2SAT 98
[2022-01-23] MEDS: spironolactone 25 mg Tablet 50 MG PO (13:09)
[2022-01-23] MEDS: apixaban 5 mg Tablet 10 MG PO (13:09)
--- NOTE | 2022-01-23 13:55 | P.DS_ITS ---
Discharge Providers Date of Admission: 01/21/22 13:45 Date of Discharge: January 23, 2022 Attending Provider at Admission: Justin Reyes MD Attending Provider at Discharge: Mark Cagle Primary Care Provider: Leonid Bruce MD Diagnoses at Discharge Discharge Diagnosis (1) Pulmonary embolism: Status: Acute (2) Pneumonia due to COVID-19 virus: Status: Acute (3) Dehydration: Status: Acute (4) Hyponatremia: Status: Acute (5) Hypoxia: Status: Acute Reason for Visit Reason for Visit: COVID +/ N/V Hospital Course Hospital Course Pleasant 81-year-old lady was admitted and managed for COVID-19 pneumonia, presenting with shortness of breath, malaise, fatigue, congestion, nausea, vomiting. Fevers. At presentation requiring 3 L of nasal cannula oxygen, was treated with Decadron and started on anticoagulation due to high suspicion of bilateral lower lobe pulmonary emboli. She was continued on Plavix during hospitalization, but Plavix were held on discharge due to large bruise of the right arm. She reports she had fallen down and dislocated her right elbow which subsequently reduced, and follow-up x-ray did not show any abnormality. Due to size of bruising for now continues on Eliquis without Plavix. Please reassess if Plavix can be restarted, which appears she is taking due to history of TIA and carotid artery disease. She is feeling much better, she is weaning down to room air on oxygen, did not qualify for home O2. She is wanting to return home. She is having mild nausea, other symptoms have been improving. She has been getting up in her room. She knows to seek medical attention in case of worsening or concerning symptoms. Very small bilateral lower lobe nodules and groundglass opacifications on CT. Recommended follow-up chest CT in 3-4 months after patient's acute illness resolves. Physical Exam Const: COMMON NORMALS: alert GENERAL APPEARANCE: cooperative ORIENTATION/CONSCIOUSNESS: Yes awake HENMT: COMMON NORMALS: normocephalic, EAC's normal, Normal external nose present and moist oral mucous membranes HEAD & SCALP: normocephalic NOSE: Normal external nose present EXTERNAL AUDITORY CANAL: EAC's normal Neck/C-Spine: COMMON NORMALS: no meningeal signs Chest: CHEST: Yes Symmetrical chest wall rise Resp: COMMON NORMALS: clear to auscultation bilaterally AUSCULTATION: clear to auscultation bilaterally Cardio: COMMON NORMALS: regular rate, regular rhythm and No murmurs present (Cardio) RATE: regular rate RHYTHM: regular rhythm GI: COMMON NORMALS: Normal to inspection, nondistended, normoactive bowel sounds present, Soft to palpation and non-tender PALPATION: Yes Soft to p alpation Extremity: COMMON NORMALS: no pedal edema Neuro: COMMON NORMALS: moves all extremities SENSORIUM/ORIENTATION: Yes alert MENINGEAL SIGNS: Yes no meningeal signs Psych: COMMON NORMALS: mental status grossly normal Skin: COMMON NORMALS: no wounds RASHES: no rashes Discharge Data Studies Completed and Pending Completed Studies During Hospitalization Category Date Time Status CT angio chest PE protcl [id number] Stat Cat Scan 01/20/22 11:22 Completed XR chest 1V portable [id number] Stat Exams 01/20/22 09:17 [place] [id number] Routine Ultrasound 01/21/22 00:42 Completed CV. echo complete* [id number] Routine Ultrasound 01/21/22 00:43 Completed Pending at discharge Category Date Time Status Blood Culture Stat Lab 01/20/22 13:07 Results Sputum Culture and Gram Stain Stat Lab 01/20/22 11:56 Uncollected Urinalysis Routine Lab 01/21/22 10:55 Uncollected Radiology Impressions Chest X-Ray 01/20/22 09:17 IMPRESSION: Very mild pulmonary vascular congestion. No pneumonia. Chest CTA 01/20/22 11:22 IMPRESSION: 1. Suboptimal opacification of the pulmonary arteries due to combination of factors as above. 2. No large central pulmonary embolism. 3. Highly suspicious for bilateral lower lobe pulmonary emboli. 4. Very small bilateral lower lobe nodules and groundglass opacifications. Recommend follow-up chest CT in 3-4 months after patient's acute illness resolves. Laboratory Results WBC 6.4 10^3/uL (4.0-10.0) 01/23/22 05:25 RBC 4.33 10^6/uL (4.1-5.3) 01/23/22 05:25 Hgb 12.6 g/dL (11.5-15.3) 01/23/22 05:25 Hct 40.1 % (37.0-47.0) 01/23/22 05:25 MCV 92.6 fl (81-99) 01/23/22 05:25 MCH 29.1 pg (28.0-34.0) 01/23/22 05:25 MCHC 31.4 g/dL (30.0-36.0) 01/23/22 05:25 RDW 13.9 % (12.1-15.1) 01/23/22 05:25 Plt Count 314 10^3/cmm (130-400) 01/23/22 05:25 MPV 8.4 fL (7.4-10.4) 01/23/22 05:25 Neut % (Auto) 38.4 % 01/23/22 05:25 Lymph % (Auto) 43.8 % 01/23/22 05:25 [place] % (Auto) 13.1 % 01/23/22 05:25 Eos % (Auto) 3.0 % 01/23/22 05:25 Baso % (Auto) 0.6 % 01/23/22 05:25 Neut # (Auto) 2.46 10^3/uL (1.8-7.7) 01/23/22 05:25 Lymph # (Auto) 2.8 10^3/uL (0.8-4.8) 01/23/22 05:25 [place] # (Auto) 0.8 10^3/uL (0.2-0.9) 01/23/22 05:25 Eos # (Auto) 0.2 10^3/uL (0.0-0.8) 01/23/22 05:25 Baso # (Auto) 0.0 10^3/uL (0.0-0.1) 01/23/22 05:25 Nucleated RBC % (auto) 0 % 01/23/22 05:25 Nucleated RBCs # 0.0 /100WBC 01/23/22 05:25 APTT 116.2 SECONDS (23.9-36.7) H 01/21/22 05:50 D-Dimer 0.77 ug/mIFEU (0-0.59) H 01/20/22 13:07 Sodium 130 mmol/L (136-145) L 01/23/22 05:25 Potassium 3.6 mmol/L (3.5-5.1) 01/23/22 05:25 Chloride 96 mmol/L (98-107) L 01/23/22 05:25 Carbon Dioxide 25 mmol/L (22-29) 01/23/22 05:25 Anion Gap 12.6 (5-19) 01/23/22 05:25 BUN 4 mg/dL (8-23) L 01/23/22 05:25 Creatinine 0.5 mg/dL (0.5-0.9) 01/23/22 05:25 GFR Calculation Not Reportable 01/23/22 05:25 Glucose 94 mg/dL (65-115) 01/23/22 05:25 Calculated Osmolality 267 mOsm/kg (285-295) L 01/23/22 05:25 Lactic Acid 1.1 mmol/L (0.5-2.2) 01/20/22 13:07 Calcium 8.6 mg/dL (8.5-10.5) 01/23/22 05:25 Phosphorus 3.4 mg/dL (2.5-4.5) 01/23/22 05:25 Magnesium 1.6 mg/dL (1.7-2.3) L 01/23/22 05:25 Ferritin 91 ng/mL (15-150) 01/20/22 09:45 Total Bilirubin 0.4 mg/dL (0.15-1.2) 01/23/22 05:25 AST 25 U/L (0-32) 01/23/22 05:25 ALT 15 U/L (0-33) 01/23/22 05:25 Alkaline Phosphatase 38 IU/L (35-105) 01/23/22 05:25 Troponin T Baseline 22 ng/L (0-10) H 01/20/22 09:45 Troponin T 120 Minute 24.15 ng/L (0-10) H 01/20/22 13:07 Delta Troponin T 2.15 ABS# (0-10) 01/20/22 13:07 Troponin T Hi Sens 6Hr 22.53 ng/L (0-10) H 01/20/22 16:23 Troponin T Hi Sens 6Hr Delta 0.53 ng/L (0-12) 01/20/22 16:23 C-Reactive Protein 5.7 mg/L (0.0-4.9) H 01/20/22 09:45 NT-Pro-B Natriuret Pep 315 pg/mL (0-450) 01/20/22 09:45 Total Protein 5.6 g/dL (6.6-8.7) L 01/23/22 05:25 Albumin 3.5 g/dL (3.5-5.2) 01/23/22 05:25 Globulin 2.1 g/dL (1.3-4.6) 01/23/22 05:25 Procalcitonin 0.05 ng/mL (0-0.5) 01/20/22 09:45 TSH 0.54 uIU/mL (0.27-4.20) 01/20/22 13:07 Coronavirus 229E (PCR) Not detected (NOT DETECT) 01/20/22 16:00 Influenza Type A Ag Negative (Negative) 01/20/22 16:00 Influenza Type B Ag Negative (Negative) 01/20/22 16:00 SARS-CoV-2 (PCR) Detected (NOT DETECT) A 01/20/22 16:00 Vitals Last Vital Signs Temp 98.1 F 01/23/22 11:23 Pulse 65 01/23/22 11:23 Resp 16 01/23/22 11:23 BP 153/80 01/23/22 11:23 Pulse Ox 98 01/23/22 11:23 Discharge Plan Discharge Patient Disposition: Home Condition: Stable Prescriptions: New Eliquis DVT-PE Treat 30D Start 5 mg (74 tabs) tablets,dose pack 10 mg PO Q12H Qty: 74 0RF benzonatate 200 mg capsule 200 mg PO TID PRN (Reason: cough) Qty: 14 1RF ondansetron HCl 4 mg tablet 4 mg PO TID PRN (Reason: nausea and vomiting) 3 Days Qty: 14 1RF Continued doxycycline monohydrate 100 mg capsule 100 mg PO BID Qty: 14 0RF Ultram 50 mg tablet 50 mg PO Q4H PRN (Reason: Pain) Qty: 120 3RF pantoprazole 40 mg tablet,delayed release (DR/EC) 40 mg PO BID Qty: 60 3RF trazodone 50 mg tablet 50 mg PO BEDTIME Qty: 30 3RF clotrimazole 10 mg kristi 10 mg PO QID PRN (Reason: YEAST) 0RF acetaminophen [Tylenol Extra Strength] 500 mg Tablet 1,000 mg PO QAM 0RF Senna Plus 8.6-50 mg tablet 2 tab-cap PO BEDTIME 0RF ibuprofen 200 mg Tablet 400 mg PO DAILY@14 0RF albuterol sulfate 90 mcg/actuation Hfa Aerosol Inhaler 2 puff INHALATION Q4H PRN (Reason: Shortness Of Breath) 0RF melatonin 10 mg Tablet 10 mg PO BEDTIME 0RF Prevagen Regular Strength 1 tab PO QAM 0RF Lipitor 40 mg tablet 40 mg PO BEDTIME 0RF prednisone 10 mg tablet 10 mg PO QAM 0RF cetirizine 10 mg tablet 10 mg PO BEDTIME 0RF Xanax 0.25 mg tablet 0.25 mg PO . DIRECTED 0RF lisinopril 5 mg tablet 5 mg PO BEDTIME 0RF metoprolol succinate 25 mg tablet extended release 24 hr 25 mg PO QAM 0RF Aldactone 50 mg tablet 50 mg PO QAM 0RF ferrous gluconate 324 mg (38 mg iron) tablet 324 mg PO QAM 0RF Voltaren Arthritis Pain 1 % gel 4 g topical QID PRN (Reason: Pain) 0RF Rx Instructions: apply to single knee, ankle, foot; for foot includes sole/toes/top of foot Held clopidogrel 75 mg tablet 75 mg PO QAM 0RF Hold Instructions: Resume on 02/09/22. Discharge Orders: Discharge Order (Routine); Ordered 01/23/22 Ordered By: Mrak Cagle Referrals: Leonid Bruce MD [Primary Care Provider] - 01/31/22 12:00 am (TeleHealth appointment. Will get a call from late in the afternoon.) Discharge Diet: Advance as tolerated Discharge Activity: Increase activity as tolerated Patient Instructions: Apixaban (By mouth), Droplet Precautions (GEN), COVID-19 (Coronavirus Disease 2019) (GEN), Opioid Safety Activity Restrictions/Additional Instructions: Please maintain droplet precautions/isolation until at least 02/02. Follow-up with your primary doctor for resolution of pneumonia. In case he starts feeling worse as discussed, feeling weaker, having more shortness of breath, worse cough, chest pain or pressure, fainting, or any other concerning symptoms, seek medical attention. You are started on blood thinner Eliquis due to high suspicion of blood clots in your lungs. Due to large bruising please hold clopidogrel for now until you see your primary doctor in office, and urinalysis discussed whether resuming clopidogrel at that time is safe. Very small bilateral lower lobe nodules and groundglass opacifications. Recommend follow-up chest CT in 3-4 months after patient's acute illness resolves. Discharge Attestations Time Spent in Discharge Care*: greater than 30 min Status at Discharge: Cognitive status at discharge: cognitively intact , Behavioral status at discharge: cooperative , Quality Metrics Clinical Quality Measures [ No reported AMI, CVA or VTE this stay] Coding Level of Care Code Acute [facility] [place] note Diagnoses Pulmonary embolism I26.99 Pneumonia due to COVID-19 virus U07.1; J12.82 Dehydration E86.0 Hyponatremia E87.1 Hypoxia R09.02
== END 2022-01-23 15:01 | disposition home or self-care (01) | DRG 177 ==
LOC: ER 09:19 → MEDSURG 12:21
PROVIDERS: Internal Medicine; Admitting Provider Family Medicine; Emergency Provider Family Medicine; PCP Internal Medicine; Visit Provider Internal Medicine
DX: U07.1 COVID-19 (principal); J12.82 Pneumonia due to coronavirus disease 2019; I26.99 Other pulmonary embolism without acute cor pulmonale; E87.1 Hypo-osmolality and hyponatremia; E78.5 Hyperlipidemia, unspecified; I10 Essential (primary) hypertension; K21.9 Gastro-esophageal reflux disease without esophagitis; M35.3 Polymyalgia rheumatica; Z86.73 Personal history of transient ischemic attack (TIA), and cerebral infarction without residual deficits; Z87.440 Personal history of urinary (tract) infections; E86.0 Dehydration; Z79.891 Long term (current) use of opiate analgesic; Z79.52 Long term (current) use of systemic steroids
CPT/HCPCS: 36415; 71045; 71275; 73080; 80048; 80053; 82728; 83605; 83735; 83880; 84100; 84145; 84443; 84484; 85025; 85378; 85730; 86140; 87040; 87635; 87804; 93005; 93306; 93970; 94640; 97116; 97161; 97165; 97530; 99285; C9113; G0378; J1100; J1644; J7030; J7626; Q9967

== ENCOUNTER → 2022-02-08 16:10 | Outpatient (BNVA) | payer MEDICARE, BC, SELFPAY | PROVIDERS: PCP Internal Medicine; Visit Provider Internal Medicine | DX: E87.6 Hypokalemia (principal); F32.A Depression, unspecified | CPT/HCPCS: 80048 ==

== ENCOUNTER → 2022-02-20 15:51 | Outpatient (BNVA) | payer MEDICARE, BC, SELFPAY | PROVIDERS: PCP Internal Medicine; Visit Provider Internal Medicine | DX: E87.1 Hypo-osmolality and hyponatremia (principal) | CPT/HCPCS: 80053 ==

== ENCOUNTER → 2022-03-02 13:22 | Outpatient (BNVA) | payer MEDICARE, BC, SELFPAY | PROVIDERS: PCP Internal Medicine; Visit Provider Internal Medicine | DX: E87.1 Hypo-osmolality and hyponatremia (principal); E87.6 Hypokalemia; I10 Essential (primary) hypertension | CPT/HCPCS: 80048 ==

== ENCOUNTER → 2022-04-04 13:09 | Outpatient (BNVA) | payer MEDICARE, BC, SELFPAY | PROVIDERS: PCP Internal Medicine; Visit Provider Internal Medicine | DX: R30.0 Dysuria (principal); R35.89 Other polyuria; E87.1 Hypo-osmolality and hyponatremia; I26.99 Other pulmonary embolism without acute cor pulmonale | CPT/HCPCS: 80053; 81003; 87077; 87086; 87184 ==

== ENCOUNTER → 2022-05-02 10:32 | Outpatient (BNVA) | payer MEDICARE, BC, SELFPAY | PROVIDERS: PCP Internal Medicine; Visit Provider Podiatrist Foot & Ankle Surgery | DX: I73.9 Peripheral vascular disease, unspecified (principal); L60.3 Nail dystrophy | CPT/HCPCS: 11721 ==

== ENCOUNTER → 2022-09-19 11:14 | Outpatient (BNVA) | payer MEDICARE, OTHER, SELFPAY | PROVIDERS: PCP Internal Medicine; Visit Provider Podiatrist Foot & Ankle Surgery | DX: I73.9 Peripheral vascular disease, unspecified (principal); L60.3 Nail dystrophy | CPT/HCPCS: 11721 ==

== ENCOUNTER → 2022-12-07 14:58 | Outpatient (BNVA) | payer MEDICARE, OTHER, SELFPAY | PROVIDERS: PCP Internal Medicine; Visit Provider Podiatrist Foot & Ankle Surgery | DX: I73.9 Peripheral vascular disease, unspecified (principal); L60.8 Other nail disorders; L60.3 Nail dystrophy | CPT/HCPCS: 11721 ==

== ENCOUNTER → 2024-10-08 13:38 | Outpatient (BNVA) | payer MEDICARE, OTHER, SELFPAY | PROVIDERS: PCP Internal Medicine; Visit Provider Nurse Practitioner Family | DX: L29.89 Other pruritus (principal); L30.4 Erythema intertrigo; L21.8 Other seborrheic dermatitis; L72.0 Epidermal cyst; I87.2 Venous insufficiency (chronic) (peripheral) | CPT/HCPCS: 99204 ==

== ENCOUNTER → 2024-12-01 14:02 | Outpatient (BNVA) | payer MEDICARE, OTHER, SELFPAY | PROVIDERS: PCP Internal Medicine; Visit Provider Nurse Practitioner Family | DX: L29.89 Other pruritus (principal); L30.4 Erythema intertrigo; L21.8 Other seborrheic dermatitis; L72.0 Epidermal cyst | CPT/HCPCS: 99214 ==